=== PATIENT | female | born 1970 | race Hispanic/Latino ===

== ENCOUNTER 2018-07-08 11:37 | Observation (INO) | payer OTHER ==
[2018-07-08] MEDS ORDERED: NA CHLORIDE 0.9% 1,000 ML ONE (12:00)
[2018-07-08] MEDS ORDERED: ADENOSINE 6 MG/ 2ML VIAL IV ONE (12:00)
[2018-07-08 12:15] LABS: Absolute Lymphocytes (CBC) 4.2 K/uL (0.7-4.9); Absolute Monocytes 0.9 K/uL (0.1-1.3); Absolute Neutrophil 7.5 K/uL (1.8-8.0); Basophils % 0.5 % (0-1.3); Eosinophils % 6.3 % (0-4.4); Hematocrit 43.9 % (36.0-45.0); Lymphocytes % 31.2 % (15.3-44.8); MCH 30.1 pg (27.0-35.0); MCV 87.3 fL (80-100); MPV 9.1 fL (7.6-11.3); Monocytes % 6.3 % (3.3-12.3); RBC Red Blood Cell Count 5.02 M/uL (3.86-4.86)
[2018-07-08 12:36] LABS: ALT/SGPT 30 U/L (12-78); AST/SGOT 15 U/L (15-37); Albumin 3.8 g/dL (3.4-5.0); Alkaline Phosphatase 68 U/L (45-117); BUN Blood Urea Nitrogen 17 mg/dL (7-18); Bicarbonate 21 mmol/L (21-32); Bilirubin Direct 0.1 mg/dL (0-0.2); Bilirubin Total 0.5 mg/dL (0.2-1.0); Glucose Level 184 mg/dL (74-106); Magnesium 1.9 mg/dL (1.8-2.4); NT PRO-BNP 86 pg/mL (<125); Potassium 3.6 mmol/L (3.5-5.1); Protein, Total 7.3 g/dL (6.4-8.2); Sodium Level 137 mmol/L (136-145); Troponin (Emerg Dept Use Only) < 0.02 ng/mL (0.0-0.045)
[2018-07-08 12:37] LABS: Protime INR 0.99
--- NOTE | 2018-07-08 12:52 | RAD REPORT ---
EXAM DESCRIPTION: RAD - Chest Single View - 07/08/2018 12:36 pm CLINICAL HISTORY: Palpitations, tachycardia COMPARISON: December 12 TECHNIQUE: AP portable chest image was obtained 1225 hours . FINDINGS: No peripheral mass or consolidation. Heart size is normal. Central vasculature is not subs tantially different from the prior study. Portable technique and a slightly shallow inspiration accen tuates the vasculature and lung markings. Trachea is midline. No measurable pleural effusion and no p neumothorax. No acute bony abnormality seen. No acute aortic findings suspected. IMPRESSION: No acute cardiopulmonary process.
[2018-07-08 14:07] LABS: Barbiturates NEGATIVE (NEGATIVE); Benzodiazepines NEGATIVE (NEGATIVE); Cocaine NEGATIVE (NEGATIVE); METHAMPHETAM NEGATIVE (NEGATIVE); Methadone NEGATIVE (NEGATIVE); Opiates NEGATIVE (NEGATIVE); Phencyclidine NEGATIVE (NEGATIVE); THC Cannibis NEGATIVE (NEGATIVE)
[2018-07-08 14:30] LABS: Urine Amorphous Sediment 1+ /HPF (NONE SEEN); Urine Bacteria <20 /HPF (<20); Urine Culture Reflex Order NOT NEEDED; Urine RBC <5 /HPF (NONE SEEN)
--- NOTE | 2018-07-08 15:25 | EKG ---
Test Date: 2018-07-08 Test Time: 11:49:59 Java Swing Developer: RIGO MEASUREMENT RESULTS: Intervals: Rate: 198 [place]: QRSD: 70 QT: 216 QTc: 392 [place]: P: [place]: QRS: 18 T: 46 INTERPRETIVE STATEMENTS: Supraventricular tachycardia Nonspecific ST abnormality Abnormal ECG No previous ECG available for comparison Electronically Signed On 07-08-18 15:24:31 DIVISIONAL MERCHANDISING MANAGER by Noman Mcconnell
--- NOTE | 2018-07-08 15:25 | EKG ---
Test Date: 2018-07-08 Test Time: 11:54:58 Transit Mix Operator: RIGO MEASUREMENT RESULTS: Intervals: Rate: 128 [place]: 122 QRSD: 76 QT: 302 QTc: 440 [place]: P: 43 MI: 122 QRS: 30 T: 18 INTERPRETIVE STATEMENTS: Sinus tachycardia Nonspecific ST abnormality Abnormal ECG Compared to ECG 07/08/2018 11:49:59 Supraventricular tachycardia no longer present ST (T wave) deviation still present Electronically Signed On 07-08-18 15:24:28 MINE PRODUCTION ENGINEER by Noman Mcconnell
--- NOTE | 2018-07-08 15:25 | EKG ---
Test Date: 2018-07-08 Test Time: 11:55:36 Entertainment Usher: RIGO MEASUREMENT RESULTS: Intervals: Rate: 98 TN: 118 QRSD: 78 QT: 318 QTc: 405 [place]: P: 42 TN: 118 QRS: 15 T: 33 INTERPRETIVE STATEMENTS: Normal sinus rhythm Nonspecific ST abnormality Abnormal ECG Compared to ECG 07/08/2018 11:54:58 Sinus tachycardia no longer present ST (T wave) deviation still present Electronically Signed On 07-08-18 15:24:26 PATIENT TRANSPORT OFFICER by Noman Mcconnell
--- NOTE | 2018-07-08 16:27 | ER ---
Nurse's Notes [facility] Name: Amarilys Posey Age: 48 yrs Sex: Female : 1970 Arrival Date: 07/08/2018 Time: 11:40 Bed 15 Private MD: Michaela Guajardo Diagnosis: Supraventricular tachycardia;Abnormal electrocardiogram [ECG] [EKG] Presentation: 07/08 11:59 Presenting complaint: Patient states: " I was at work and it felt like my heart was ph fluttering, they checked my pulse and it was like 200." Pt denies chest pain, reports slight SOB and palpitations. Transition of care: patient was not received from another setting of care. Onset of symptoms was July 08, 2018. Risk Assessment: Do you want to hurt yourself or someone else? Patient reports no desire to harm self or others. Initial Sepsis Screen: Does the patient meet any 2 criteria? No. Patient's initial sepsis screen is negative. Does the patient have a suspected source of infection? No. Patient's initial sepsis screen is negative. Care prior to arrival: None. 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 - Social history:: Smoking status: Patient/guardian denies using tobacco. - Ebola Screening: : No symptoms or risks identified at this time. Screenin:20 Abuse screen: Denies threats or abuse. Denies injuries from another. Nutritional ph screening: No deficits noted. Tuberculosis screening: No symptoms or risk factors identified. Fall Risk None identified. Assessment: 11:50 Reassessment: HR noted to be 203 SVT on monitor, EKG and ERP at bedside, attempted ph vagal maneuvers x 2 w/ no changed in cardiac rhythm, verbal order received for IV medication. Cardiovascular: Reports palpitations, shortness of breath, Denies chest pain, nausea, Rhythm is SVT. 11:55 Reassessment: IV adenosine administered, rhythm converted to sinus tachycardia at 103 ph bpm. 12:00 General: Appears in no apparent distress. comfortable, well groomed, Behavior is calm, ph cooperative, appropriate for age, Denies fever, feeling ill. Pain: Denies pain. Neuro: Level of Consciousness is awake, alert, obeys commands, Oriented to person, place, time, situation. Cardiovascular: Reports lightheadedness, palpitations, shortness of breath, Denies chest pain, nausea, syncope, Capillary refill < 3 seconds in bilateral fingers Patient's skin is warm and dry. Rhythm is sinus tachycardia. Respiratory: Airway is patent Respiratory effort is even, unlabored, Respiratory pattern is regular, symmetrical. GI: No signs and/or symptoms were reported involving the gastrointestinal system. Derm: Skin is intact, is healthy with good turgor, Skin is pink, warm \\T\\ dry. Musculoskeletal: Circulation, motion, and sensation intact. Range of motion: intact in all extremities. 13:18 Reassessment: Patient appears in no apparent distress at this time. Patient and/or ph family updated on plan of care and expected duration. Pain level reassessed. Patient is alert, oriented x 3, equal unlabored respirations, skin warm/dry/pink. Pt resting comfortably, denies pain or nausea at this time, VSS w/ HR 95 bpm, sinus rhythm on bedside monitor. 14:00 Reassessment: Patient appears in no apparent distress at this time. No changes from previously documented assessment. Patient and/or family updated on plan of care and expected duration. Pain level reassessed. Patient is alert, oriented x 3, equal unlabored respirations, skin warm/dry/pink. Patient denies pain at this time. 14:54 Reassessment: Patient appears in no apparent distress at this time. Patient and/or ph family updated on plan of care and expected duration. Pain level reassessed. Patient is alert, oriented x 3, equal unlabored respirations, skin warm/dry/pink. Awaiting results of repeat troponin, VSS, will continue to monitor. 16:00 Reassessment: Patient appears in no apparent distress at this time. Patient and/or ph family updated on plan of care and expected duration. Pain level reassessed. Patient is alert, oriented x 3, equal unlabored respirations, skin warm/dry/pink. 17:24 Reassessment: Patient appears in no apparent distress at this time. Patient and/or ph family updated on plan of care and expected duration. Pain level reassessed. Patient is alert, oriented x 3, equal unlabored respirations, skin warm/dry/pink. Pt resting quietly, denies pain at this at this time, Dr Ladd at bedside to speak w/ pt. Vital Signs: 11:55 BP 129 / 72; Pulse 203; Resp 22; Temp 99.0; Pulse Ox 98% on R/A; Weight 81.65 kg; ph Height 5 ft. 5 in. (165.10 cm); Pain 0/10; 11:55 Pulse 103; Resp 18; Pulse Ox 100% ; ph 13:19 BP 118 / 68; Pulse 94; Resp 18; Pulse Ox 99% on R/A; Pain 0/10; ph 14:54 BP 114 / 58; Pulse 89; Resp 16; Pulse Ox 99% on R/A; Pain 0/10; ph 16:00 BP 108 / 64; Pulse 87; Resp 18; Pulse Ox 98% on R/A; ph 17:27 BP 121 / 80; Pulse 82; Resp 18; Pulse Ox 100% on R/A; ph 18:04 BP 112 / 62; Pulse 88 MON; Resp 19; Pulse Ox 98% on R/A; rv 11:55 Body Mass Index 29.95 (81.65 kg, 165.10 cm) ph 11:55 after IV cardioversion ph Vitals: 13:19 Cardiac Rhythm Assessment Sinus rhythm. ph 14:54 Cardiac Rhythm Assessment Sinus rhythm. ph ED Course: 11:40 Patient arrived in ED. sb2 11:41 Michaela Guajardo MD is Private Physician. sb2 11:43 Shahriar Tejeda MD is Attending Physician. gs 11:53 Initial lab(s) drawn, by pa, sent to lab. Inserted saline lock: 20 gauge in right ph antecubital area, using aseptic technique. Blood collected. 11:59 Sera Perla RN is Primary Nurse. ph 12:01 Triage completed. ph 12:28 X-ray completed. Portable x-ray completed in exam room. Patient tolerated procedure ls3 well. 13:20 Arm band placed on. ph 13:20 Patient has correct armband on for positive identification. Placed in gown. Bed in low ph position. Call light in reach. Side rails up X2. conveyor monitor on. Pulse ox on. NIBP on. Warm blanket given. 13:37 XRAY Chest (1 view) In Process Unspecified. EDMS 13:52 Urine Drug Screen Sent. tw2 14:46 No provider procedures requiring assistance completed. ph 16:27 Michelle Ladd MD is Hospitalizing Provider. 17:28 Patient admitted, IV remains in place. ph Administered Medications: 11:55 Drug: Adenocard 6 mg Route: IVP; Site: right antecubital; ph 12:05 Follow up: Response: No adverse reaction; Cardiac rhythm changed ph 16:51 Drug: Aspirin Chewable Tablet 324 mg Route: PO; ph 17:23 Follow up: Response: No adverse reaction ph Outcome: 16:26 Discharge ordered by . 16:27 Decision to Hospitalize by Provider. 18:05 Admitted to Tele accompanied by tech, via wheelchair, room , with chart, Report called rv to NURSE MONTIEL 18:05 Condition: good 18:05 Instructed on the need for admit. 18:37 Patient left the ED. rv Signatures: Dispatcher [employer] EDMS Sera Perla, RN RN Jana Angulo RN RN tw2 Shahriar Tejeda MD MD Jimena Canales sb2 Archie Lewis RN RN rv Armaan Durand ls3
--- NOTE | 2018-07-08 16:27 | EDPHYS ---
Physician Documentation [facility] Name: Amarilys Posey Age: 48 yrs Sex: Female : 1970 Arrival Date: 07/08/2018 Time: 11:40 Bed 15 Private MD: Michaela Guajardo ED Physician Shahriar Tejeda HPI: 07/08 16:14 This 48 yrs old Female presents to ER via Ambulatory with complaints of RAPID gs HEART RATE. 16:14 The patient presents with a history of heart racing. Onset: The symptoms/episode gs began/occurred suddenly. Duration: The patient or guardian reports a single episode, that is still ongoing. Modifying factors: The symptoms are aggravated by nothing. The symptoms are alleviated by nothing. Associated signs and symptoms: Pertinent positives: SOB. Severity of symptoms: At their worst the symptoms were severe in the emergency department the symptoms are unchanged. The patient has not experienced similar symptoms in the past. The patient has not recently seen a physician. 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 - Social history:: Smoking status: Patient/guardian denies using tobacco. - Ebola Screening: : No symptoms or risks identified at this time. ROS: 16:14 All other systems are negative. gs Exam: 16:14 Head/Face: Normocephalic, atraumatic. Eyes: Pupils equal round and reactive to light, gs extra-ocular motions intact. Lids and lashes normal. Conjunctiva and sclera are non-icteric and not injected. Cornea within normal limits. Periorbital areas with no swelling, redness, or edema. ENT: Nares patent. No nasal discharge, no septal abnormalities noted. Tympanic membranes are normal and external auditory canals are clear. Oropharynx with no redness, swelling, or masses, exudates, or evidence of obstruction, uvula midline. Mucous membranes moist. Neck: Trachea midline, no thyromegaly or masses palpated, and no cervical lymphadenopathy. Supple, full range of motion without nuchal rigidity, or vertebral point tenderness. No Meningismus. Chest/axilla: Normal chest wall appearance and motion. Nontender with no deformity. No lesions are appreciated. 16:14 Respiratory: Lungs have equal breath sounds bilaterally, clear to auscultation and percussion. No rales, rhonchi or wheezes noted. No increased work of breathing, no retractions or nasal flaring. Abdomen/GI: Soft, non-tender, with normal bowel sounds. No distension or tympany. No guarding or rebound. No evidence of tenderness throughout. Back: No spinal tenderness. No costovertebral tenderness. Full range of motion. Skin: Warm, dry with normal turgor. Normal color with no rashes, no lesions, and no evidence of cellulitis. MS/ Extremity: Pulses equal, no cyanosis. Neurovascular intact. Full, normal range of motion. Neuro: Awake and alert, GCS 15, oriented to person, place, time, and situation. Cranial nerves II-XII grossly intact. Motor strength 5/5 in all extremities. Sensory grossly intact. Cerebellar exam normal. Normal gait. 16:14 Constitutional: The patient appears alert, awake, in obvious distress, severely distressed. 16:14 Cardiovascular: Rate: tachycardic, Rhythm: regular, Pulses: thready, Heart sounds: normal, Edema: is not appreciated. 16:14 ECG was reviewed by the Attending Physician. 16:14 ECG was reviewed by the Attending Physician. Vital Signs: 11:55 BP 129 / 72; Pulse 203; Resp 22; Temp 99.0; Pulse Ox 98% on R/A; Weight 81.65 kg; ph Height 5 ft. 5 in. (165.10 cm); Pain 0/10; 11:55 Pulse 103; Resp 18; Pulse Ox 100% ; ph 13:19 BP 118 / 68; Pulse 94; Resp 18; Pulse Ox 99% on R/A; Pain 0/10; ph 14:54 BP 114 / 58; Pulse 89; Resp 16; Pulse Ox 99% on R/A; Pain 0/10; ph 16:00 BP 108 / 64; Pulse 87; Resp 18; Pulse Ox 98% on R/A; ph 17:27 BP 121 / 80; Pulse 82; Resp 18; Pulse Ox 100% on R/A; ph 18:04 BP 112 / 62; Pulse 88 MON; Resp 19; Pulse Ox 98% on R/A; rv 11:55 Body Mass Index 29.95 (81.65 kg, 165.10 cm) ph 11:55 after IV cardioversion ph MDM: 11:55 Patient medically screened. 16:14 Differential diagnosis: arrythmia, dehydration, stress disorder, unstable angina. Data gs reviewed: vital signs, nurses notes. Response to treatment: the patient's symptoms have markedly improved after treatment, and as a result, I will admit patient. 16:14 Counseling: I had a detailed discussion with the patient and/or guardian regarding: the gs historical points, exam findings, and any diagnostic results supporting the discharge/admit diagnosis, lab results, radiology results, the need for further work-up and treatment in the hospital. 07/08 11:56 Order name: Basic Metabolic Panel; Complete Time: 14:43 07/08 11:56 Order name: CBC with Diff; Complete Time: 14:43 07/08 11:56 Order name: LFT's; Complete Time: 14:43 07/08 11:56 Order name: Magnesium; Complete Time: 14:43 07/08 11:56 Order name: NT PRO-BNP; Complete Time: 14:43 07/08 11:56 Order name: PT-INR; Complete Time: 14:43 07/08 11:56 Order name: Troponin (emerg Dept Use Only); Complete Time: 14:43 07/08 11:56 Order name: TSH; Complete Time: 14:43 07/08 11:56 Order name: Urine Drug Screen; Complete Time: 14:43 07/08 11:56 Order name: Urine Microscopic Only; Complete Time: 14:43 07/08 14:45 Order name: Troponin (emerg Dept Use Only); Complete Time: 16:10 07/08 14:50 Order name: Urine Dipstick--Ancillary (enter results) eb 07/08 14:50 Order name: Urine --Ancillary (enter results) eb 07/08 17:15 Order name: CBC with Automated Diff EDMS 07/08 11:56 Order name: XRAY Chest (1 view); Complete Time: 14:43 07/08 11:56 Order name: EKG; Complete Time: 11:58 07/08 11:56 Order name: Cardiac monitoring; Complete Time: 13:00 07/08 11:56 Order name: EKG - Nurse/Tech; Complete Time: 13:01 07/08 13:40 Order name: EKG Electrocardiogram; Complete Time: 16:14 EDMS 07/08 13:40 Order name: EKG Electrocardiogram; Complete Time: 16:14 EDMS 07/08 17:15 Order name: Heart Healthy EDMS 07/08 17:15 Order name: CBC with Automated Diff EDMS 07/08 17:15 Order name: CBC with Automated Diff EDMS 07/08 17:15 Order name: CBC with Automated Diff EDMS 07/08 17:15 Order name: Comprehensive Metabolic Panel EDMS 07/08 17:15 Order name: Comprehensive Metabolic Panel EDMS 07/08 17:15 Order name: Comprehensive Metabolic Panel EDMS 07/08 17:15 Order name: Comprehensive Metabolic Panel [facility] 07/08 11:56 Order name: IV Saline Lock; Complete Time: 13:01 07/08 11:56 Order name: Labs collected and sent; Complete Time: 13:01 07/08 11:56 Order name: O2 Per Protocol; Complete Time: 13:01 07/08 11:56 Order name: O2 Sat Monitoring; Complete Time: 13:01 07/08 11:56 Order name: Urine Test (obtain specimen); Complete Time: 13:51 07/08 11:56 Order name: Urine Dipstick-Ancillary (obtain specimen); Complete Time: 13:51 gs EC:14 Rate is 198 beats/min. Rhythm is regular. QRS interval is normal. No Q waves. Clinical gs impression: SVT. Interpreted by me. 16:14 Rate is 98 beats/min. Rhythm is regular. NC interval is normal. QRS interval is normal. gs QT interval is normal. Clinical impression: NSR w/ Non-specific ST/T Changes. Interpreted by me. Administered Medications: 11:55 Drug: Adenocard 6 mg Route: IVP; Site: right antecubital; ph 12:05 Follow up: Response: No adverse reaction; Cardiac rhythm changed ph 16:51 Drug: Aspirin Chewable Tablet 324 mg Route: PO; ph 17:23 Follow up: Response: No adverse reaction ph Disposition: 07/08/18 16:27 Hospitalization ordered by Michelle Ladd for Observation. Preliminary diagnosis are Supraventricular tachycardia, Abnormal electrocardiogram [ECG] [EKG]. - Bed requested for Telemetry/MedSurg (observation). - Status is Observation. rv - Condition is Stable. - Problem is new. - Symptoms have improved. UTI on Admission? No Critical care time excluding procedures: 16:27 Critical care time: Bedside Care: 10 minutes, Consultation: 10 minutes, Family gs Intervention: 10 minutes. Total time: 30 minutes Signatures: Dispatcher [employer] Iman Franco RN RN dw Hall, Patricia, RN RN Shahriar Tejeda MD MD gs Botello, Elizabeth eb Vicente, Ronaldo, RN RN rv Corrections: (The following items were deleted from the chart) 16:27 16:26 07/08/2018 16:26 Discharged to Home. Impression: Supraventricular tachycardia; gs Abnormal electrocardiogram [ECG] [EKG]. Condition is Stable. Forms are Medication Reconciliation Form, Thank You Letter, Antibiotic Education, Prescription Opioid Use. Follow up: Private Physician; When: 2 - 3 days; Reason: Re-evaluation by your physician. 16:52 16:27 Hospitalization Ordered by Michelle Ladd MD for Observation. Preliminary diagnosis eb is Supraventricular tachycardia; Abnormal electrocardiogram [ECG] [EKG]. Bed requested for Telemetry/MedSurg (observation). Status is Observation. Condition is Stable. Problem is new. Symptoms have improved. UTI on Admission? No. gs 17:38 16:52 07/08/2018 16:27 Hospitalization Ordered by Michelle Ladd MD for Observation. dw Preliminary diagnosis is Supraventricular tachycardia; Abnormal electrocardiogram [ECG] [EKG]. Bed requested for Telemetry/MedSurg (observation). Status is Observation. Condition is Stable. Problem is new. Symptoms have improved. UTI on Admission? No. eb 18:37 17:38 07/08/2018 16:27 Hospitalization Ordered by Michelle Ladd MD for Observation. rv Preliminary diagnosis is Supraventricular tachycardia; Abnormal electrocardiogram [ECG] [EKG]. Bed requested for Telemetry/MedSurg (observation). Status is Observation. Condition is Stable. Problem is new. Symptoms have improved. UTI on Admission? No. dw
[2018-07-08 16:45] LABS: Urine Blood TRACE (NEG); Urine Glucose TRACE (NEG); Urine Protein NEGATIVE (NEG)
[2018-07-08] MEDS ORDERED: ASPIRIN 81 MG CHEWABLE TABLET ONE (16:58)
[2018-07-08] MEDS ORDERED: ACETAMINOPHEN 500 MG TAB PO PRN (17:07)
[2018-07-08] MEDS ORDERED: ONDANSETRON 4 MG/2 ML VIAL IV PRN (17:07)
--- NOTE | 2018-07-08 18:31 | P.HP ---
Certification for Inpatient Patient admitted to: Observation With expected LOS: <2 Midnights Practitioner: I am a practitioner with admitting privileges, knowledge of patient current condition, hospital course, and medical plan of care. Services: Services provided to patient in accordance with Admission requirements found in Title 42 Section 412.3 of the Code of Federal Regulations Patient History Date of Service: 07/08/18 Reason for admission: Palpitations History of Present Illness: This is a 48-year-old female with history of diabetes admitted for palpitations. Per patient, the palpitations started around 11 o'clock this morning associated with shortness of breath and sweating. She came to the ER. In the ED, she was found to have supraventricular tachycardia at vasovagal maneuvers were attempted. Then she was given 6 mg at dizziness and 4 baby aspirin. After the adenosine, she converted to normal sinus rhythm. She denies any chest pain, headache, vision changes, dizziness, presyncopal/ syncopal episodes, abdominal complaints or complaints. At the time of my exam, she was alert oriented x3, hemodynamically stable, normal sinus rhythm and asymptomatic. She is being admitted for observation because her 2nd troponin was elevated in the ER. Allergies NKDA Allergy (Uncoded 09/10/15 13:05) Unknown Home Medications: ALPRAZolam [Xanax] 0.5 mg PO TID PRN 10/16/16 Cholecalciferol (Vitamin D3) [Vitamin D 5,000 Iu Cap] 5,000 unit PO DAILY Empagliflozin [Jardiance] 25 mg PO DAILY 10/16/16 Metformin HCl [Glucophage] 500 mg PO BIDWM 10/16/16 Venlafaxine HCl [Effexor] 75 mg PO DAILY 10/16/16 - Past Medical/Surgical History -: Diabetes mellitus, [id number] Review of Systems General: As per HPI, Unremarkable Eyes: Unremarkable ENT: Unremarkable Respiratory: Shortness of Breath, As per HPI Cardiovascular: Palpitations, As per HPI Gastrointestinal: Unremarkable Genitourinary: Unremarkable Musculoskeletal: Unremarkable Integumentary: Unremarkable Neurological: Unremarkable Lymphatics: Unremarkable Physical Examination - Physical Exam General: Alert, In no apparent distress, Oriented x3 HEENT: Atraumatic, PERRLA, Mucous membr. moist/pink, EOMI, Sclerae nonicteric Neck: Supple, 2+ carotid pulse no bruit, No LAD, Without JVD or thyroid abnormality Respiratory: Clear to auscultation bilaterally, Normal air movement Cardiovascular: Regular rate/rhythm, Normal S1 S2 Gastrointestinal: Normal bowel sounds, No tenderness Musculoskeletal: No tenderness Integumentary: No rashes Neurological: Normal gait, Normal speech, Normal strength at 5/5 x4 extr, Normal tone, Normal affect Lymphatics: No axilla or inguinal lymphadenopathy - Studies Laboratory Data (last 24 hrs) 07/08/18 11:55: PT 11.8, INR 0.99 07/08/18 11:55: WBC 13.5 H, Hgb 15.1 H, Hct 43.9, Plt Count 280 07/08/18 11:55: Sodium 137, Potassium 3.6, BUN 17, Creatinine 0.70, Glucose 184 H, Magnesium 1.9, Total Bilirubin 0.5, AST 15, ALT 30, Alkaline Phosphatase 68 Assessment and Plan - Plan This is a 48-year-old female with: Episode of supraventricular tachycardia Convert back to normal sinus rhythm in the ER after 6 mg of adenosine. Continues to remain normal sinus rhythm. Admit to floor with tele to monitor. If continues to have more episodes of SVT, may need cardiology consult. Shortness of breath. Resolved. This is likely secondary to the elevated heart rate from the SVT. Elevated troponin This is likely secondary to the elevated heart rate and increased demand, likely temporary. Will recheck troponin in 8 hrs from prior to see if remained stable. This is likely not secondary to coronary artery disease. [id number] diabetes mellitus, type 2 Accu-Cheks and mild sliding scale insulin. She is on Jardiance 25 mg at home, will hold for now and resume on discharge. DVT prophylaxis: Lovenox GI prophylaxis: Not needed Diet: 1800 calorie Disposition: Admit to floor with tele for observation overnight. Likely discharge home in the next 24-48 hr if asymptomatic, and no more episodes of SVTs. - Advance Directives Does patient have a Living Will: No Does patient have a Durable POA for Healthcare: No Physician Review: Patient Assessed, Agree with Above Assessment and Plan Time Spent Managing Pts Care (In Minutes): 45
[2018-07-08] MEDS ORDERED: POTASSIUM CL SA 10 MEQ TAB PO ONE (18:42)
[2018-07-08] MEDS: NA CHLORIDE 0.9% 1,000 ML IV SCH (20:56)
[2018-07-09] MEDS: NA CHLORIDE 0.9% 1,000 ML IV SCH (05:03)
[2018-07-09 05:40] LABS: Absolute Lymphocytes (CBC) 3.7 K/uL (0.7-4.9); Absolute Monocytes 0.6 K/uL (0.1-1.3); Absolute Neutrophil 5.1 K/uL (1.8-8.0); Basophils % 0.2 % (0-1.3); Hematocrit 39.6 % (36.0-45.0); Lymphocytes % 36.7 % (15.3-44.8); MCH 30.2 pg (27.0-35.0); MCV 87.1 fL (80-100); MPV 8.6 fL (7.6-11.3); Monocytes % 6.1 % (3.3-12.3); RBC Red Blood Cell Count 4.54 M/uL (3.86-4.86)
[2018-07-09 05:54] LABS: ALT/SGPT 26 U/L (12-78); AST/SGOT 13 U/L (15-37); Albumin 3.2 g/dL (3.4-5.0); Alkaline Phosphatase 57 U/L (45-117); BUN Blood Urea Nitrogen 11 mg/dL (7-18); Bicarbonate 25 mmol/L (21-32); Bilirubin Total 0.6 mg/dL (0.2-1.0); Glucose Level 123 mg/dL (74-106); Magnesium 1.8 mg/dL (1.8-2.4); Potassium 3.8 mmol/L (3.5-5.1); Protein, Total 6.1 g/dL (6.4-8.2); Sodium Level 140 mmol/L (136-145)
[2018-07-09] MEDS ORDERED: D50W 25 GM/50 ML SYRINGE IV PRN (06:03)
[2018-07-09] MEDS ORDERED: GLUCAGON 1 MG/VIAL IM PRN (06:03)
[2018-07-09] MEDS ORDERED: MAGNESIUM SULFATE 1 gm IVPB 1 GM/100 ML BAG IV ONE (06:13)
[2018-07-09] MEDS ORDERED: POTASSIUM CL SA 10 MEQ TAB PO ONE (06:14)
[2018-07-09] MEDS: INSULIN -REGULAR HUMAN 50 UNIT/0.5 ML ML SQ SCH ×2 (07:30→11:30)
[2018-07-09] MEDS ORDERED: LISINOPRIL 5 MG TAB PO SCH (09:00)
[2018-07-09] MEDS ORDERED: Empagliflozin (Jardiance) 25 MG TABLET PO SCH (09:00)
--- NOTE | 2018-07-09 15:59 | P.DS ---
Admission Date: 07/08/18 Discharge Date: 07/09/18 Disposition: ROUTINE DISCHARGE Discharge Condition: GOOD Reason for Admission: Palpitations Brief History of Present Illness: From H and P This is a 48-year-old female with history of diabetes admitted for palpitations. Per patient, the palpitations started around 11 o'clock this morning associated with shortness of breath and sweating. She came to the ER. In the ED, she was found to have supraventricular tachycardia at vasovagal maneuvers were attempted. Then she was given 6 mg at dizziness and 4 baby aspirin. After the adenosine, she converted to normal sinus rhythm. She denies any chest pain, headache, vision changes, dizziness, presyncopal/ syncopal episodes, abdominal complaints or complaints. At the time of my exam, she was alert oriented x3, hemodynamically stable, normal sinus rhythm and asymptomatic. She is being admitted for observation because her 2nd troponin was elevated in the ER. Hospital Course: Patient is a 48-year-old female with past medical history of diabetes who was admitted secondary to palpitations and elevated troponin level. Patient was found to have SVT was given adenosine in the ER and converted to sinus rhythm. Patient was observed overnight did not have any further id Ms. on telemetry. Patient did not have any chest pain shortness of breath. Patient was started on low-dose beta-agnes. Patient was then cleared for discharge. Spoke with web marketing manager seasonal delivery driver who recommended outpatient follow up in his office in 1 week. Vital Signs/Physical Exam: Temp Pulse Resp BP Pulse Ox 98.0 F 79 18 110/52 L 98 07/09/18 08:00 07/09/18 10:29 07/09/18 08:00 07/09/18 10:29 07/09/18 08:00 General: Alert, In no apparent distress, Oriented x3, Obese HEENT: Atraumatic, PERRLA, EOMI Neck: Supple, JVD not distended Respiratory: Clear to auscultation bilaterally, Normal air movement Cardiovascular: No edema, Normal pulses, Regular rate/rhythm, Normal S1 S2 Gastrointestinal: Normal bowel sounds, Soft and benign, Non-distended, No tenderness Musculoskeletal: No clubbing, No tenderness Integumentary: No rashes, No erythema Neurological: Normal speech, Normal strength at 5/5 x4 extr, Normal tone, Cranial nerves 3-12 intact, Normal affect Laboratory Data at Discharge: WBC 10.1 K/uL (4.3-10.9) D 07/09/18 05:12 Hgb 13.7 g/dL (12.0-15.0) 07/09/18 05:12 Hct 39.6 % (36.0-45.0) 07/09/18 05:12 Plt Count 241 K/uL (152-406) 07/09/18 05:12 PT 11.8 SECONDS (9.2-12.8) 07/08/18 11:55 INR 0.99 07/08/18 11:55 Sodium 140 mmol/L (136-145) 07/09/18 05:12 Potassium 3.8 mmol/L (3.5-5.1) 07/09/18 05:12 BUN 11 mg/dL (7-18) 07/09/18 05:12 Creatinine 0.60 mg/dL (0.55-1.3) 07/09/18 05:12 Glucose 123 mg/dL (74-106) H 07/09/18 05:12 Magnesium 1.8 mg/dL (1.8-2.4) 07/09/18 05:12 Total Bilirubin 0.6 mg/dL (0.2-1.0) 07/09/18 05:12 AST 13 U/L (15-37) L 07/09/18 05:12 ALT 26 U/L (12-78) 07/09/18 05:12 Alkaline Phosphatase 57 U/L (45-117) 07/09/18 05:12 Troponin I 0.12 ng/mL (0.0-0.045) H 07/08/18 20:40 Home Medications: Empagliflozin [Jardiance] 25 mg PO DAILY 10/16/16 Lisinopril 5 mg PO DAILY 07/08/18 Metoprolol Tartrate [Lopressor*] 12.5 mg PO BID 6AM 6PM #30 tab 07/09/18 New Medications: Metoprolol Tartrate [Lopressor*] 12.5 mg PO BID 6AM 6PM #30 tab Patient Discharge Instructions: f/up w PCP in 2-3 days. f/up w web marketing manager Dr. Lawrence on 07/15/18 at 8 am. Return to ER for worsening condition Diet: ADA Activity: Ad margarita Followup: Sukhdev Lawrence MD [ACTIVE - CAN ADMIT] - Michaela Guajardo DO [Primary Care Provider] -
--- NOTE | 2018-07-09 17:49 | EKG ---
Test Date: 2018-07-08 Test Time: 14:21:31 Development Mechanic: RIGO MEASUREMENT RESULTS: Intervals: Rate: 81 CA: 148 QRSD: 76 QT: 344 QTc: 399 [place]: P: 50 CA: 148 QRS: 13 T: 27 INTERPRETIVE STATEMENTS: Normal sinus rhythm Normal ECG Compared to ECG 07/08/2018 11:55:36 ST (T wave) deviation no longer present Electronically Signed On 07-09-18 17:47:44 AIRPLANE GASTANK LINER ASSEMBLER by Noman Mcconnell
[2018-07-09] MEDS ORDERED: METOPROLOL TAR 25 MG TAB PO SCH (18:00)
== END 2018-07-09 16:36 | disposition home or self-care (01) ==
LOC: ER 11:37 → ERHOLD 17:11 → 4TH 18:05
PROVIDERS: ADMIT Family Medicine; ATTEND Family Medicine
DX: R00.2 Palpitations (principal); I47.1 Supraventricular tachycardia; E11.9 Type 2 diabetes mellitus without complications; R79.89 Other specified abnormal findings of blood chemistry
CPT/HCPCS: 36415; 71045; 80048; 80053; 80076; 80307; 81003; 81015; 81025; 82962; 83735; 83880; 84443; 84484; 85025; 85610; 93005; 94760; 96374; 99285; G0378; J0153; J3475; J7030

== ENCOUNTER 2018-12-17 05:41 | Emergency (ER) | payer OTHER ==
[2018-12-17 06:27] LABS: Absolute Lymphocytes (CBC) 2.9 K/uL (0.7-4.9); Absolute Monocytes 0.6 K/uL (0.1-1.3); Basophils % 0.4 % (0-1.3); Eosinophils % 2.9 % (0-4.4); Hematocrit 42.2 % (36.0-45.0); Lymphocytes % 26.3 % (15.3-44.8); MPV 8.8 fL (7.6-11.3); Monocytes % 5.9 % (3.3-12.3)
[2018-12-17 06:41] LABS: ALT/SGPT 27 U/L (12-78); AST/SGOT 16 U/L (15-37); Albumin 3.5 g/dL (3.4-5.0); Alkaline Phosphatase 68 U/L (45-117); BUN Blood Urea Nitrogen 9 mg/dL (7-18); Bicarbonate 24 mmol/L (21-32); Bilirubin Direct 0.1 mg/dL (0-0.2); Bilirubin Total 0.5 mg/dL (0.2-1.0); Glucose Level 135 mg/dL (74-106); Lipase 78 U/L (73-393); Potassium 3.6 mmol/L (3.5-5.1); Protein, Total 6.9 g/dL (6.4-8.2); Sodium Level 140 mmol/L (136-145)
--- NOTE | 2018-12-17 07:17 | ER ---
Nurse's Notes [facility] Name: Amarilys Posey Age: 48 yrs Sex: Female : 1970 Arrival Date: 12/17/2018 Time: 05:43 Bed 7 Private MD: Michaela Guajardo Diagnosis: Upper abdominal pain, unspecified Presentation: 12/17 05:57 Presenting complaint: Patient states: Reports epigastric pain that started Sunday, pt ea reports pain wraps around the right side and goes to the back. Pt reports feeling bloated. Denies n/v/d. Transition of care: patient was not received from another setting of care. Onset of symptoms was December 17, 2018. Risk Assessment: Do you want to hurt yourself or someone else? Patient reports no desire to harm self or others. Initial Sepsis Screen: Does the patient meet any 2 criteria? No. Patient's initial sepsis screen is negative. Does the patient have a suspected source of infection? No. Patient's initial sepsis screen is negative. Care prior to arrival: None. 05:57 Method Of Arrival: Ambulatory ea 05:57 Acuity: JAVIER 3 ea MATERIAL FLOW ENGINEER: 06:00 LMP 12/05/2018 ea Historical: - Allergies: 06:42 No Known Allergies; ea - Home Meds: 06:42 Jardiance Oral [Active]; ea - PMHx: 06:42 Diabetes - NIDDM; ea - PSHx: 06:42 Tubal ligation; ea - Immunization history:: Adult Immunizations up to date. - Social history:: Smoking status: Patient/guardian denies using tobacco. - Ebola Screening: : No symptoms or risks identified at this time. Screenin:00 Abuse screen: Denies threats or abuse. Nutritional screening: No deficits noted. ea Tuberculosis screening: No symptoms or risk factors identified. Fall Risk None identified. Assessment: 06:38 General: Appears uncomfortable, Behavior is calm, cooperative, appropriate for age. ea Pain: Complains of pain in epigastric area Pain radiates to right upper quadrant. Neuro: Level of Consciousness is awake, alert, obeys commands, Oriented to person, place, time, situation. Cardiovascular: Patient's skin is warm and dry. Respiratory: Airway is patent Respiratory effort is even, unlabored, Respiratory pattern is regular, symmetrical. GI: Abdomen is non-distended, Bowel sounds present X 4 quads. : Denies burning with urination. Derm: Skin is pink, warm \T\ dry. 06:50 Reassessment: Patient and/or family updated on plan of care and expected duration. Pain ea level reassessed. Patient is alert, oriented x 3, equal unlabored respirations, skin warm/dry/pink. Awaiting on lab results. 07:34 Reassessment: Patient appears in no apparent distress at this time. Patient and/or tw2 family updated on plan of care and expected duration. Pain level reassessed. Patient is alert, oriented x 3, equal unlabored respirations, skin warm/dry/pink. Patient states feeling better. Patient states symptoms have improved. Vital Signs: 05:57 BP 137 / 71; Pulse 82; Resp 19; Temp 97.8; Pulse Ox 98% on R/A; Weight 83.91 kg; Height ea 5 ft. 5 in. (165.10 cm); Pain 8/10; 07:10 BP 146 / 88; Pulse 69; Resp 18; Pulse Ox 99% on R/A; ea 07:34 BP 128 / 78; Pulse 74; Resp 17; Pulse Ox 99% on R/A; Pain 6/10; tw2 05:57 Body Mass Index 30.79 (83.91 kg, 165.10 cm) ea ED Course: 05:43 Patient arrived in ED. am2 05:44 Michaela Guajardo MD is Private Physician. am2 05:54 Joanne Land FNP-C [facility]. kb 05:54 Irvin Rosenberg MD is Attending Physician. kb 05:59 Charisse Mccarty RN is Primary Nurse. ea 06:00 Patient has correct armband on for positive identification. Placed in gown. Bed in low ea position. Call light in reach. Adult w/ patient. 06:01 Arm band placed on right wrist. Patient placed in an exam room, on a stretcher, on ea pulse oximetry. 06:10 Inserted saline lock: 20 gauge in right antecubital area, using aseptic technique. ea Blood collected. 06:41 Triage completed. ea 07:00 US Abdomen Limited In Process Unspecified. EDMS 07:15 Report given to Segundo GANDARA. ea 07:30 No provider procedures requiring assistance completed. tw2 07:34 IV discontinued, intact, bleeding controlled, No redness/swelling at site. Pressure tw2 dressing applied. Administered Medications: 07:20 Drug: Pepcid 20 mg Route: IVP; Site: right antecubital; tw2 07:35 Follow up: Response: No adverse reaction tw2 07:24 Drug: TORadol 30 mg Route: IVP; Site: right antecubital; tw2 07:35 Follow up: Response: No adverse reaction; Pain is decreased tw2 Outcome: 07:16 Discharge ordered by MD. ash 07:33 Discharged to home ambulatory. tw2 07:33 Condition: stable 07:33 Discharge instructions given to patient, significant other, Instructed on discharge instructions, follow up and referral plans. no drinking with medication, no driving heavy equipment, medication usage, Demonstrated understanding of instructions, follow-up care, medications, Prescriptions given X 1. 07:35 Patient left the ED. tw2 Signatures: Dispatcher [employer] EDMS Joanne Land, LATRICE GRAYSON-Jana Caldwell RN RN tw2 Brittanie Meneses 2 Charisse Mccarty RN RN
--- NOTE | 2018-12-17 07:17 | EDPHYS ---
Physician Documentation [facility] Name: Amarilys Posey Age: 48 yrs Sex: Female : 1970 Arrival Date: 12/17/2018 Time: 05:43 Bed 7 Private MD: Michaela Guajardo ED Physician Irvin Rosenberg HPI: 12/17 05:57 This 48 yrs old Female presents to ER via Unassigned with complaints of kb Epigastric Pain. 05:57 The patient presents with abdominal pain in the epigastric area, in the right upper kb quadrant. Onset: The symptoms/episode began/occurred 3 day(s) ago. The symptoms radiate to right back. Associated signs and symptoms: none. The symptoms are described as intermittent. Modifying factors: The symptoms are alleviated by nothing, the symptoms are aggravated by nothing. Severity of pain: At its worst the pain was moderate in the emergency department the pain is unchanged. The patient has not experienced similar symptoms in the past. The patient has not recently seen a physician. Pt reports epigastric pain that radiates around right side to back. States it started Sunday. No fever, n/v/d. 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 - Social history:: Smoking status: Patient/guardian denies using tobacco. - Ebola Screening: : No symptoms or risks identified at this time. ROS: 05:57 Constitutional: Negative for fever, chills, and weight loss, Cardiovascular: Negative kb for chest pain, palpitations, and edema, Respiratory: Negative for shortness of breath, cough, wheezing, and pleuritic chest pain, Back: Negative for injury and pain, : Negative for injury, bleeding, discharge, and swelling, MS/Extremity: Negative for injury and deformity, Skin: Negative for injury, rash, and discoloration, Neuro: Negative for headache, weakness, numbness, tingling, and seizure. 05:57 Abdomen/GI: Positive for abdominal pain, Negative for nausea, vomiting, and diarrhea. Exam: 05:57 Constitutional: This is a well developed, well nourished patient who is awake, alert, kb and in no acute distress. Head/Face: Normocephalic, atraumatic. Chest/axilla: Normal chest wall appearance and motion. Nontender with no deformity. No lesions are appreciated. Cardiovascular: Regular rate and rhythm with a normal S1 and S2. No gallops, murmurs, or rubs. Normal PMI, no JVD. No pulse deficits. Respiratory: Lungs have equal breath sounds bilaterally, clear to auscultation and percussion. No rales, rhonchi or wheezes noted. No increased work of breathing, no retractions or nasal flaring. Back: No spinal tenderness. No costovertebral tenderness. Full range of motion. Skin: Warm, dry with normal turgor. Normal color with no rashes, no lesions, and no evidence of cellulitis. MS/ Extremity: Pulses equal, no cyanosis. Neurovascular intact. Full, normal range of motion. Neuro: Awake and alert, GCS 15, oriented to person, place, time, and situation. Cranial nerves II-XII grossly intact. Motor strength 5/5 in all extremities. Sensory grossly intact. Cerebellar exam normal. Normal gait. 05:57 Abdomen/GI: Inspection: abdomen appears normal, Bowel sounds: normal, in all quadrants, Palpation: soft, in all quadrants, mild abdominal tenderness, in the right upper quadrant. Vital Signs: 05:57 BP 137 / 71; Pulse 82; Resp 19; Temp 97.8; Pulse Ox 98% on R/A; Weight 83.91 kg; Height ea 5 ft. 5 in. (165.10 cm); Pain 8/10; 07:10 BP 146 / 88; Pulse 69; Resp 18; Pulse Ox 99% on R/A; ea 07:34 BP 128 / 78; Pulse 74; Resp 17; Pulse Ox 99% on R/A; Pain 6/10; tw2 05:57 Body Mass Index 30.79 (83.91 kg, 165.10 cm) ea MDM: 05:54 Patient medically screened. kb 05:59 Data reviewed: vital signs, nurses notes. Data interpreted: Pulse oximetry: on room air kb is 100 %. Interpretation: normal. 07:15 Counseling: I had a detailed discussion with the patient and/or guardian regarding: the kb historical points, exam findings, and any diagnostic results supporting the discharge/admit diagnosis, lab results, radiology results, the need for outpatient follow up, a family practitioner, to return to the emergency department if symptoms worsen or persist or if there are any questions or concerns that arise at home. 12/17 05:57 Order name: Basic Metabolic Panel; Complete Time: 06:42 kb 12/17 05:57 Order name: CBC with Diff; Complete Time: 06:38 kb 12/17 05:57 Order name: Hepatic Function; Complete Time: 06:42 kb 12/17 05:57 Order name: Lipase; Complete Time: 06:42 kb 12/17 05:57 Order name: US Abdomen Limited kb 12/17 05:57 Order name: IV Saline Lock; Complete Time: 06:38 kb 12/17 05:57 Order name: Labs collected and sent; Complete Time: 06:38 kb Administered Medications: 07:20 Drug: Pepcid 20 mg Route: IVP; Site: right antecubital; tw2 07:35 Follow up: Response: No adverse reaction tw2 07:24 Drug: TORadol 30 mg Route: IVP; Site: right antecubital; tw2 07:35 Follow up: Response: No adverse reaction; Pain is decreased tw2 Disposition: 09:56 Co-signature as Attending Physician, Irvin Rosenberg MD I agree with the assessment and malinda plan of care. Disposition: 12/17/18 07:16 Discharged to Home. Impression: Upper abdominal pain, unspecified. - Condition is Stable. - Discharge Instructions: Abdominal Pain, Adult, [id number]. - Prescriptions for Bentyl 20 mg Oral Tablet - take 1 tablet by ORAL route every 6 hours As needed; 20 tablet. - Medication Reconciliation Form, Thank You Letter, Antibiotic Education, Prescription Opioid Use, Work release form form. - Follow up: Emergency Department; When: As needed; Reason: Worsening of condition. Follow up: Private Physician; When: 2 - 3 days; Reason: Recheck today's complaints, Continuance of care, Re-evaluation by your physician. Signatures: Dispatcher [employer] EDJoanne Salmon, Irvin Patel MD MD cha Wise, Tara RN RN tw2 Charisse Mccarty RN RN ea Corrections: (The following items were deleted from the chart) 07:35 07:16 12/17/2018 07:16 Discharged to Home. Impression: Upper abdominal pain, tw2 unspecified. Condition is Stable. Forms are Medication Reconciliation Form, Thank You Letter, Antibiotic Education, Prescription Opioid Use. Follow up: Emergency Department; When: As needed; Reason: Worsening of condition. Follow up: Private Physician; When: 2 - 3 days; Reason: Recheck today's complaints, Continuance of care, Re-evaluation by your physician. kb
[2018-12-17] MEDS ORDERED: FAMOTIDINE 20 MG/2 ML VIAL IV ONE (07:32)
[2018-12-17] MEDS ORDERED: KETOROLAC 30 MG/ML INJ ONE (07:33)
--- NOTE | 2018-12-17 08:24 | RAD REPORT ---
EXAM DESCRIPTION: US - Abdomen Exam Limited - 12/17/2018 7:00 am CLINICAL HISTORY: ABD PAIN COMPARISON: No comparisons FINDINGS: The gallbladder demonstrates no gallstones. No pericholecystic fluid or gallbladder wall t hickening. The common bile duct is normal measuring 4 mm. The liver demonstrates no findings of intrahepatic biliary dilatation. IMPRESSION: Unremarkable examination.
== END 2018-12-17 07:35 | disposition home or self-care (01) ==
LOC: ER 05:41
DX: R10.13 Epigastric pain (principal); E11.9 Type 2 diabetes mellitus without complications
CPT/HCPCS: 36415; 76705; 80048; 80076; 83690; 85025; 96374; 96375; 99284

== ENCOUNTER 2018-12-21 14:36 | Inpatient (IN) | payer OTHER ==
[2018-12-21] MEDS ORDERED: ASPIRIN 81 MG CHEWABLE TABLET ONE (15:23)
[2018-12-21] MEDS ORDERED: NA CHLORIDE 0.9% 2,000 ML ONE (15:23)
[2018-12-21] MEDS ORDERED: ACETAMINOPHEN 500 MG TAB ONE (15:23)
--- NOTE | 2018-12-21 15:33 | RAD REPORT ---
EXAM DESCRIPTION: RAD - Chest Single View - 12/21/2018 3:18 pm CLINICAL HISTORY: PALPITATIONS Chest pain. COMPARISON: Chest Single View dated 07/08/2018; Chest Pa And Lat (2 Views) dated 12/12/2017; CHEST PA AND LAT 2 VIEW dated 03/26/2012 FINDINGS: Portable technique limits examination quality. The lungs are grossly clear. The heart is normal in size. No displaced fractures. IMPRESSION: No acute intrathoracic process suspected.
[2018-12-21 15:44] LABS: Absolute Lymphocytes (CBC) 0.4 K/uL (0.7-4.9); Absolute Neutrophil 5.9 K/uL (1.8-8.0); Basophils % 0.1 % (0-1.3); Eosinophils % 0.1 % (0-4.4); Hematocrit 43.3 % (36.0-45.0); Lymphocytes % 6.4 % (15.3-44.8); MPV 8.7 fL (7.6-11.3); Monocytes % 0.3 % (3.3-12.3); RBC Red Blood Cell Count 4.94 M/uL (3.86-4.86)
[2018-12-21 16:00] LABS: Urine Bacteria <20 /HPF (<20); Urine Culture Reflex Order NOT NEEDED; Urine RBC <5 /HPF (NONE SEEN)
[2018-12-21 16:01] LABS: Urine Blood TRACE (NEG); Urine Glucose NEGATIVE (NEG); Urine Protein 2+ (NEG)
[2018-12-21 16:06] LABS: ALT/SGPT 25 U/L (12-78); AST/SGOT 19 U/L (15-37); Albumin 3.6 g/dL (3.4-5.0); Alkaline Phosphatase 92 U/L (45-117); BUN Blood Urea Nitrogen 8 mg/dL (7-18); Bicarbonate 22 mmol/L (21-32); Bilirubin Direct 0.5 mg/dL (0-0.2); Bilirubin Total 1.6 mg/dL (0.2-1.0); CKMB Creatine Kinase MB < 1.0 ng/mL (0.3-3.6); Creatine Phosphokinase 35 U/L (26-192); Glucose Level 114 mg/dL (74-106); Lipase 75 U/L (73-393); Potassium 3.2 mmol/L (3.5-5.1); Protein, Total 7.3 g/dL (6.4-8.2); Sodium Level 138 mmol/L (136-145); Troponin (Emerg Dept Use Only) < 0.02 ng/mL (0.0-0.045)
[2018-12-21 16:10] LABS: Protime INR 1.09
--- NOTE | 2018-12-21 16:39 | EDPHYS ---
Physician Documentation [facility] Name: Amarilys Posey Age: 48 yrs Sex: Female : 1970 Arrival Date: 12/21/2018 Time: 14:39 Bed 25 Private MD: ED Physician Irvin Rosenberg HPI: 12/21 16:00 This 48 yrs old Female presents to ER via Ambulatory with complaints of Fever, snw Palpitations, Chills. 16:00 The patient reports fever, not measured (subjective). Onset: The symptoms/episode snw began/occurred suddenly, last night. Associated signs and symptoms: Pertinent positives: chills, cough, recent abd pain, recent HIDA scan. Severity of symptoms: At their worst the symptoms were moderate. The patient has experienced a previous episode. as noted. 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 - Social history:: Smoking status: Patient/guardian denies using tobacco. - Ebola Screening: : No symptoms or risks identified at this time. ROS: 15:59 Eyes: Negative for injury, pain, redness, and discharge, ENT: Negative for injury, snw pain, and discharge, Neck: Negative for injury, pain, and swelling, Cardiovascular: Negative for chest pain, palpitations, and edema. 15:59 Abdomen/GI: Negative for abdominal pain, nausea, vomiting, diarrhea, and constipation, Back: Negative for injury and pain, : Negative for injury, bleeding, discharge, and swelling, MS/Extremity: Negative for injury and deformity, Skin: Negative for injury, rash, and discoloration, Neuro: Negative for headache, weakness, numbness, tingling, and seizure, Psych: Negative for depression, anxiety, suicide ideation, homicidal ideation, and hallucinations. 15:59 Constitutional: Positive for body aches, chills, fatigue, fever, malaise. 15:59 Respiratory: Positive for cough, with no reported sputum. Exam: 15:58 Head/Face: Normocephalic, atraumatic. Eyes: Pupils equal round and reactive to light, snw extra-ocular motions intact. Lids and lashes normal. Conjunctiva and sclera are non-icteric and not injected. Cornea within normal limits. Periorbital areas with no swelling, redness, or edema. ENT: Nares patent. No nasal discharge, no septal abnormalities noted. Tympanic membranes are normal and external auditory canals are clear. Oropharynx with no redness, swelling, or masses, exudates, or evidence of obstruction, uvula midline. Mucous membranes moist. Neck: Trachea midline, no thyromegaly or masses palpated, and no cervical lymphadenopathy. Supple, full range of motion without nuchal rigidity, or vertebral point tenderness. No Meningismus. Chest/axilla: Normal chest wall appearance and motion. Nontender with no deformity. No lesions are appreciated. 15:58 Abdomen/GI: Soft, non-tender, with normal bowel sounds. No distension or tympany. No guarding or rebound. No evidence of tenderness throughout. Back: No spinal tenderness. No costovertebral tenderness. Full range of motion. Skin: Warm, dry with normal turgor. Normal color with no rashes, no lesions, and no evidence of cellulitis. MS/ Extremity: Pulses equal, no cyanosis. Neurovascular intact. Full, normal range of motion. Neuro: Awake and alert, GCS 15, oriented to person, place, time, and situation. Cranial nerves II-XII grossly intact. Motor strength 5/5 in all extremities. Sensory grossly intact. Cerebellar exam normal. Normal gait. Psych: Awake, alert, with orientation to person, place and time. Behavior, mood, and affect are within normal limits. 15:58 Constitutional: The patient appears alert, awake, anxious, restless, uncomfortable. 15:58 Cardiovascular: Rate: tachycardic, Rhythm: regular, Pulses: no pulse deficits are appreciated. 15:58 ECG was reviewed by the Attending Physician. 15:58 Respiratory: the patient does not display signs of respiratory distress, Respirations: shallow respirations, tachypnea, Breath sounds: are clear throughout. Vital Signs: 14:53 BP 128 / 50; Pulse 160; Resp 22; Temp 100.0; Pulse Ox 98% on R/A; Weight 81.65 kg; la1 Height 5 ft. 5 in. (165.10 cm); Pain 4/10; 16:00 Pulse 124; Resp 18; Temp 100.4; Pulse Ox 98% on R/A; Pain 8/10; mg2 17:46 BP 108 / 73; Pulse 113; Resp 18; Pulse Ox 100% on R/A; Pain 2/10; mg2 18:15 BP 103 / 52; Pulse 118; Resp 18; Temp 99.2; Pulse Ox 98% on R/A; Pain 2/10; mg2 19:37 BP 96 / 60; Pulse 105; Resp 18; Temp 98.1; Pulse Ox 98% on R/A; Pain 0/10; mg2 14:53 Body Mass Index 29.95 (81.65 kg, 165.10 cm) la1 MDM: 14:56 Patient medically screened. snw 16:21 Data reviewed: vital signs, nurses notes. Data interpreted: Pulse oximetry: on room air snw is 98 %. Interpretation: normal. Counseling: I had a detailed discussion with the patient and/or guardian regarding: the historical points, exam findings, and any diagnostic results supporting the discharge/admit diagnosis, lab results, radiology results, the need for further work-up and treatment in the hospital. Physician consultation: Betty Carlos MD was called at 16:23, was contacted at 16:23, regarding admission, to the telemetry unit. would like further tests performed, CT scan, abd. 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 12/21 14:57 Order name: T\T\S 12/21 14:57 Order name: Basic Metabolic Panel w 12/21 14:57 Order name: Blood Culture Adult (2) w 12/21 14:57 Order name: CBC with Diff; Complete Time: 15:54 snw 12/21 14:57 Order name: Ckmb; Complete Time: 16:07 snw 12/21 14:57 Order name: CPK; Complete Time: 16:07 snw 12/21 14:57 Order name: Lactate; Complete Time: 16:07 snw 12/21 14:57 Order name: LFT's; Complete Time: 16:07 w 12/21 14:57 Order name: Lipase; Complete Time: 16:07 [facility] 12/21 14:57 Order name: Procalcitonin; Complete Time: 16:11 [facility] 12/21 14:57 Order name: Protime (+inr); Complete Time: 16:26 [facility] 12/21 14:57 Order name: Ptt, Activated; Complete Time: 16:26 [facility] 12/21 14:57 Order name: Troponin (emerg Dept Use Only); Complete Time: 16:07 [facility] 12/21 14:57 Order name: Urine Microscopic Only; Complete Time: 16:02 [facility] 12/21 14:57 Order name: Chest Single View XRAY; Complete Time: 15:37 [facility] 12/21 14:58 Order name: Type and Screen; Complete Time: 16:40 [facility] 12/21 14:58 Order name: Basic Metabolic Panel; Complete Time: 16:07 [facility] 12/21 14:58 Order name: Blood Culture [facility] 12/21 15:03 Order name: Flu; Complete Time: 16:02 [facility] 12/21 15:03 Order name: Strep; Complete Time: 16:02 [facility] 12/21 15:48 Order name: Urine Dipstick--Ancillary (enter results); Complete Time: 16:02 12/21 15:48 Order name: Urine --Ancillary (enter results); Complete Time: 16:02 12/21 16:00 [place] name[place] [facility] [place] 16:06 Order name: Throat Culture [facility] 12/21 16:27 Order name: CT Abd/Pelvis - W/Contrast; Complete Time: 19:17 [facility] 12/21 16:55 Order name: Hepatitis Panel,Acute [facility] 12/21 19:30 Order name: Lactate Sepsis 2 HR Follow-up; Complete Time: 19:32 [facility] 12/21 14:57 Order name: Accucheck; Complete Time: 15:57 [facility] 12/21 14:57 Order name: Cardiac monitoring; Complete Time: 15:45 [facility] 12/21 14:57 Order name: EKG - Nurse/Tech; Complete Time: 15:45 [facility] 12/21 14:57 Order name: IV Saline Lock - Large Bore; Complete Time: 15:45 [facility] 12/21 14:57 Order name: Labs collected and sent; Complete Time: 15:45 [facility] 12/21 14:57 Order name: O2 Per Protocol; Complete Time: 15:45 snw 12/21 14:57 Order name: O2 Sat Monitoring; Complete Time: 15:45 snw 12/21 14:57 Order name: Urine Dipstick-Ancillary (obtain specimen); Complete Time: 15:45 snw 12/21 15:49 Order name: Labs - recollect needed; Complete Time: 16:17 eb 12/21 16:54 Order name: CONS Physician Consult [facility] 12/21 16:54 Order name: NPO [facility] Administered Medications: 15:37 Drug: NS 0.9% (30 ml/kg) 30 ml/kg Route: IV; Rate: bolus; Site: left antecubital; mg2 19:55 Follow up: Response: No adverse reaction; Marked relief of symptoms; IV Status: mg2 Completed infusion; IV Intake: 2400ml 15:37 Drug: Aspirin Chewable Tablet 324 mg Route: PO; mg2 17:57 Follow up: Response: No adverse reaction mg2 15:37 Drug: Tylenol 1000 mg Route: PO; mg2 17:57 Follow up: Response: No adverse reaction; Marked relief of symptoms mg2 17:01 Not Given (Physician Discretion): NS 0.9% 1000 ml IV at 1000 ml once iw 17:16 Drug: Rocephin 1 grams Route: IV; Rate: calculated rate; Site: left antecubital; mg2 17:56 Follow up: Response: No adverse reaction; IV Status: Completed infusion mg2 Point of Care Testing: Blood Glucose: 16:00 Blood Glucose: 123 mg/dL; mg2 Ranges: Critical Glucose Levels:Adult <50 mg/dl or >400 mg/dl <40 mg/dl or >180 mg/dl Disposition: 12/21/18 16:37 Hospitalization ordered by Betty Carlos for Inpatient Admission. Preliminary diagnosis are Fever, unspecified, Dehydration, Tachycardia, unspecified, Unspecified abdominal pain. - Bed requested for Telemetry/MedSurg (Inpatient). - Status is Inpatient Admission. mg2 - Condition is Stable. - Problem is new. - Symptoms are unchanged. UTI on Admission? No Addendum: 12/24/2018 08:37 Co-signature as Attending Physician, Irvin Rosenberg MD I agree with the assessment and c bermudez plan of care. Signatures: Dispatcher [employer] EDMS [place], Iman, RN RN dw Irvin Rosenberg MD MD cha Therrien, Shelly, RETAIL PERFORMANCE SPECIALIST-C RETAIL PERFORMANCE SPECIALIST-Csnw Katya Olmstead, RN RN iw Dimitri Gonzalez RN RN la1 Ashley Butcher Michele, RN RN mg2 Corrections: (The following items were deleted from the chart) 12/21 15:45 14:57 [place] ordered. snw mg2 19:26 16:37 Hospitalization Ordered by Betty Carlos MD for Inpatient Admission. Preliminary dw diagnosis is Fever, unspecified; Dehydration; Tachycardia, unspecified; Unspecified abdominal pain. Bed requested for Telemetry/MedSurg (Inpatient). Status is Inpatient Admission. Condition is Stable. Problem is new. Symptoms are unchanged. UTI on Admission? No. snw 20:04 19:26 12/21/2018 16:37 Hospitalization Ordered by Betty Carlos MD for Inpatient mg2 Admission. Preliminary diagnosis is Fever, unspecified; Dehydration; Tachycardia, unspecified; Unspecified abdominal pain. Bed requested for Telemetry/MedSurg (Inpatient). Status is Inpatient Admission. Condition is Stable. Problem is new. Symptoms are unchanged. UTI on Admission? No. dw
--- NOTE | 2018-12-21 16:39 | ER ---
Nurse's Notes [facility] Name: Amarilys Posey Age: 48 yrs Sex: Female : 1970 Arrival Date: 12/21/2018 Time: 14:39 Bed 25 Private MD: Diagnosis: Fever, unspecified;Dehydration;Tachycardia, unspecified;Unspecified abdominal pain Presentation: 12/21 14:51 Presenting complaint: Patient states: I was in the ER on 12/17 for what we thought was la1 gall bladder issues but they couldn't see anything so they sent me to dr hart and I had a HIDA scan yesterday but dont have the results. Last night I started with fever and chills and just feeling very bad. Pt reports RUQ pain. Transition of care: patient was not received from another setting of care. Onset of symptoms was December 21, 2018. Risk Assessment: Do you want to hurt yourself or someone else? Patient reports no desire to harm self or others. Initial Sepsis Screen: Does the patient meet any 2 criteria? HR > 90 bpm. Does the patient have a suspected source of infection? Yes:. Care prior to arrival: None. 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 - Social history:: Smoking status: Patient/guardian denies using tobacco. - Ebola Screening: : No symptoms or risks identified at this time. Screenin:59 Abuse screen: Denies threats or abuse. Denies injuries from another. Nutritional mg2 screening: No deficits noted. Tuberculosis screening: No symptoms or risk factors identified. Fall Risk IV access (20 points). Assessment: 15:59 General: Appears in no apparent distress. comfortable, Behavior is calm, cooperative. mg2 17:45 Pain: Complains of pain in abdomen Pain does not radiate. Pain currently is 4 out of 10 mg2 on a pain scale. Quality of pain is described as aching, Pain began gradually, Is intermittent. Neuro: Level of Consciousness is awake, alert, obeys commands, Oriented to person, place, time, situation. Cardiovascular: Capillary refill < 3 seconds Patient's skin is warm and dry. Cardiovascular: Reports palpitations, shortness of breath. Respiratory: Airway is patent Respiratory effort is even, unlabored, Respiratory pattern is regular, symmetrical. GI: Abdomen is non-distended, Reports lower abdominal pain, upper abdominal pain. : No signs and/or symptoms were reported regarding the genitourinary system. EENT: No signs and/or symptoms were reported regarding the EENT system. Derm: Skin is intact, is healthy with good turgor, Skin is pink, warm \T\ dry. normal. Musculoskeletal: Circulation, motion, and sensation intact. Capillary refill < 3 seconds. 18:15 Reassessment: dr peter and dr hart came and examined the patient. dr peter advised mg2 for admission. 19:54 Reassessment: Patient states feeling better. mg2 Vital Signs: 14:53 BP 128 / 50; Pulse 160; Resp 22; Temp 100.0; Pulse Ox 98% on R/A; Weight 81.65 kg; la1 Height 5 ft. 5 in. (165.10 cm); Pain 4/10; 16:00 Pulse 124; Resp 18; Temp 100.4; Pulse Ox 98% on R/A; Pain 8/10; mg2 17:46 BP 108 / 73; Pulse 113; Resp 18; Pulse Ox 100% on R/A; Pain 2/10; mg2 18:15 BP 103 / 52; Pulse 118; Resp 18; Temp 99.2; Pulse Ox 98% on R/A; Pain 2/10; mg2 19:37 BP 96 / 60; Pulse 105; Resp 18; Temp 98.1; Pulse Ox 98% on R/A; Pain 0/10; mg2 14:53 Body Mass Index 29.95 (81.65 kg, 165.10 cm) la1 ED Course: 14:39 Patient arrived in ED. rg4 14:44 Mary Carmen Simpson [facility]-C [facility] snw 14:44 Irvin Rosenberg MD is Attending Physician. snw 14:52 Triage completed. la1 14:53 Arm band placed on left wrist. la1 15:05 Arian Sahu NICHOL is Primary Nurse. mg2 15:19 Chest Single View XRAY In Process Unspecified. EDMS 15:45 First set of blood cultures drawn by me, Second set of blood cultures drawn by me. mg2 15:58 No provider procedures requiring assistance completed. Inserted saline lock: 20 gauge mg2 in left antecubital area, using aseptic technique. Blood collected. 16:35 Betty Peter MD is Hospitalizing Provider. snw 17:47 Patient has correct armband on for positive identification. quality assurance monitor final on. Pulse mg2 ox on. NIBP on. Door closed. 18:42 CT Abd/Pelvis - W/Contrast In Process Unspecified. EDMS 19:54 Patient admitted, IV remains in place. mg2 Administered Medications: 15:37 Drug: NS 0.9% (30 ml/kg) 30 ml/kg Route: IV; Rate: bolus; Site: left antecubital; mg2 19:55 Follow up: Response: No adverse reaction; Marked relief of symptoms; IV Status: mg2 Completed infusion; IV Intake: 2400ml 15:37 Drug: Aspirin Chewable Tablet 324 mg Route: PO; mg2 17:57 Follow up: Response: No adverse reaction mg2 15:37 Drug: Tylenol 1000 mg Route: PO; mg2 17:57 Follow up: Response: No adverse reaction; Marked relief of symptoms mg2 17:01 Not Given (Physician Discretion): NS 0.9% 1000 ml IV at 1000 ml once iw 17:16 Drug: Rocephin 1 grams Route: IV; Rate: calculated rate; Site: left antecubital; mg2 17:56 Follow up: Response: No adverse reaction; IV Status: Completed infusion mg2 Point of Care Testing: Blood Glucose: 16:00 Blood Glucose: 123 mg/dL; mg2 Ranges: Intake: 17:45 IV: 2000ml; Total: 2000ml. mg2 19:55 IV: 2400ml; Total: 4400ml. mg2 Output: 17:45 Urine: 400ml (Voided); Total: 400ml. mg2 18:18 Urine: 500ml (Voided); Total: 900ml. mg2 Outcome: 16:37 Decision to Hospitalize by Provider. snw 19:54 Admitted to Tele accompanied by tech, via wheelchair, room 405, with chart, Report mg2 called to NICHOL Bernard 19:54 Condition: stable 19:54 Instructed on the need for admit, Demonstrated understanding of instructions. 20:04 Patient left the ED. mg2 Signatures: Dispatcher [employer] EDMS Mary Carmen Simpson, SENIOR MANAGER QUALITY ASSURANCE-C SENIOR MANAGER QUALITY ASSURANCE-Csnw Dimitri Gonzalez RN RN la1 Malathi Barba rg4 Arian Sahu RN RN mg2 Katya Olmstead RN iw Corrections: (The following items were deleted from the chart) 17:46 15:59 General: Appears mg2 mg2 19:39 19:37 Pulse 105bpm; Resp 18bpm; Pulse Ox 98% RA; Temp 98.1F; Pain 0/10; mg2 mg2
[2018-12-21] MEDS ORDERED: ONDANSETRON 4 MG/2 ML VIAL IV PRN (16:48)
--- NOTE | 2018-12-21 17:09 | P.HP ---
Certification for Inpatient Patient admitted to: Inpatient With expected LOS: >2 Midnights Practitioner: I am a practitioner with admitting privileges, knowledge of patient current condition, hospital course, and medical plan of care. Services: Services provided to patient in accordance with Admission requirements found in Title 42 Section 412.3 of the Code of Federal Regulations Patient History Date of Service: 12/21/18 Reason for admission: Fever and Chills History of Present Illness: This is a 48-year-old female with significant past medical history of type 2 diabetes and hyperlipidemia who presented to the ED complaining of having fever and chills. Patient stated that her urine shows started last night and has been getting progressively worse. Patient stated that her temperature has been 100.4-100.6 at home. Chills have been really bad where she has to sleep in her shorts yesterday. Patient stated that she was here in the ER on 12/17/2018 for right upper quadrant pain and fever and chills had an abdominal ultrasound done at that time which was negative for any acute abnormality and thus she was discharged home under stable condition. After which she said that she was doing well however the pain did return. Patient stated that she had a HIDA scan done yesterday which was over that up outpatient after she was discharged from the ER. Patient denies having any nausea vomiting shortness of breath chest pain diarrhea or any other associated symptoms. Patient does state however that she she has pain every time she tries to take a deep breath in and feels bloated like she is on her period. Patient denies having any sick contacts lately traveling outside of the [place] In the ER patient had extensive lab work and imaging done. Lab work was consistent with a left shift on CBC along with elevated lactic acid and pro calcitonin. Abdominal CT is pending at this time. Allergies No Known Allergies Allergy (Unverified 07/09/18 10:14) Home Medications: Empagliflozin [Jardiance] 25 mg PO DAILY 10/16/16 Lisinopril 5 mg PO DAILY 07/08/18 Metoprolol Tartrate [Lopressor*] 12.5 mg PO BID 6AM 6PM #30 tab 07/09/18 - Past Medical/Surgical History Diabetic: Yes -: Diabetes mellitus, [id number] -: Tubal ligation - Family History Father -: Diabetes Mother -: Cancer Sister -: Cancer - Social History Alcohol use: Yes CD- Drugs: No Caffeine use: Yes Review of Systems 10-point ROS is otherwise unremarkable Physical Examination - Physical Exam General: Alert, Other (Ill-appearing, in mild distress) Respiratory: Clear to auscultation bilaterally, Normal air movement Cardiovascular: Regular rate/rhythm, Normal S1 S2 Gastrointestinal: Normal bowel sounds, Distended, Tenderness (Generalized tenderness more in left lower quadrant and right upper quadrant), Rebound, Guarding (Epigastric area) Musculoskeletal: No tenderness Integumentary: No rashes Neurological: Normal speech, Normal tone Lymphatics: No axilla or inguinal lymphadenopathy - Studies Laboratory Data (last 24 hrs) 12/21/18 16:04: PT 12.8 H, INR 1.09, APTT 28.1 12/21/18 15:30: WBC 6.4 D, Hgb 14.6, Hct 43.3, Plt Count 216 12/21/18 15:30: Sodium 138, Potassium 3.2 L, BUN 8, Creatinine 0.87, Glucose 114 H, Total Bilirubin 1.6 H, AST 19, ALT 25, Alkaline Phosphatase 92, Lipase 75 Microbiology Data (last 24 hrs): 12/21/18 15:30 Throat Group A Streptococcus Rapid Screen - Final 12/21/18 15:30 Nasopharnyx Influenza Type A Antigen Screen - Final 12/21/18 15:30 Nasopharnyx Influenza Type B Antigen Screen - Final Assessment and Plan - Problems (Diagnosis) (1) Abdominal pain Current Visit: Yes Status: Acute Plan: Patient with right upper quadrant pain, left lower quadrant pain, generalized tenderness as well. -patient also has guarding and rebound tenderness in the left lower quadrant and right lower quadrant -abdominal ultrasound on 12/17/18 negative for any gallstones or cholecystitis -HIDA scan 12/20/18 consistent with ejection fraction of 1% -abdominal CT is pending at this time -general surgery was also consulted in the ER. -General Surgery recommended to await for abdominal CT before making a decision on admission. If patient requires other specialty support such as GI after abdominal CT is done then patient will need to be transferred out to a tertiary care center from the ER, if not then patient will be admitted to the hospital for further workup. Qualifiers: Abdominal location: generalized Qualified Code(s): R10.84 - Generalized abdominal pain (2) Sepsis Current Visit: Yes Status: Acute Plan: Sepsis with tachycardia (heart rate of 160 in ER), unknown source at this time. -2 L of IV fluids in the ER. Will start on NS at 100 ml/hr -started patient on IV Zosyn at this time. Received 1 dose of Rocephin in the ER -blood culture and urine culture pending at this -abdominal CTs pending at this time Qualifiers: Sepsis type: sepsis due to unspecified organism Qualified Code(s): A41.9 - Sepsis, unspecified organism (3) Diabetes mellitus, type 2 Onset Date: 07/09/18 Current Visit: No Status: Chronic Plan: Insulin sliding scale and Accu-Chek Qualifiers: Diabetes mellitus salvage determiner insulin use: without salvage determiner use Diabetes mellitus complication status: without complication Qualified Code(s): E11.9 - Type 2 diabetes mellitus without complications - Plan Currently pending abdominal CT. Depending on the results of the abdominal CT. Patient will be either transferred out to the tertiary care center from the ER worse is admitted to the hospital here for further care. Discharge Plan: Home Plan to discharge in: Greater than 2 days - Advance Directives Does patient have a Living Will: No Does patient have a Durable POA for Healthcare: No - Code Status/Comfort Care Code Status Assessed: Yes Critical Care: No
[2018-12-21] MEDS ORDERED: CEFTRIAXONE/SWI 1gm 1 GM/10 ML SYR ONE (17:23)
[2018-12-21] MEDS: PIPER/TAZO/NS 3.375gm 3.375 GM/100 ML BAG IVPB SCH ×2 (18:00→23:27)
[2018-12-21] MEDS ORDERED: NA CHLORIDE 0.9% 500 ML ONE (18:16)
--- NOTE | 2018-12-21 18:55 | RAD REPORT ---
EXAM DESCRIPTION: CTAbdomen Pelvis W Contrast - 12/21/2018 6:41 pm CLINICAL HISTORY: Abdominal pain. ABD PAIN COMPARISON: <Comparisons> TECHNIQUE: Biphasic CT imaging of the abdomen and pelvis was performed with 100 ml non-ionic IV cont rast. All CT scans are performed using dose optimization technique as appropriate and may include automated exposure control or mA/KV adjustment according to patient size. FINDINGS: The lung bases are clear. Diffuse fatty liver is seen with 16 mm benign-appearing cyst in the caudate lobe. No aggressive liver lesion or biliary dilatation. The spleen, pancreas, adrenal glands and kidneys are within normal perry its. No bowel obstruction, free air, free fluid or abscess. The appendix is normal. No evidence of signi ficant lymphadenopathy. No suspicious bony findings. The uterus appears enlarged with several fibroid suspected. IMPRESSION: No acute intra-abdominal or pelvic finding. Diffuse fatty liver.
[2018-12-21] MEDS: INSULIN -REGULAR HUMAN 50 UNIT/0.5 ML ML SQ SCH (21:00)
[2018-12-21] MEDS: NA CHLORIDE 0.9% 1,000 ML IV SCH (21:25)
[2018-12-21] MEDS ORDERED: PIPERACIL/TAZO 3.375 GM VIAL IV ONE (23:24)
[2018-12-21] MEDS: ACETAMINOPHEN 325 MG TABLET PO PRN (23:26)
[2018-12-21] MEDS ORDERED: NA CHLORIDE 0.9% 100 ML IV ONE (23:29)
[2018-12-22] MEDS ORDERED: NA CHLORIDE 0.9% 100 ML IV ONE (03:37)
[2018-12-22] MEDS: PIPER/TAZO/NS 3.375gm 3.375 GM/100 ML BAG IVPB SCH ×3 (05:12→22:45)
[2018-12-22 05:46] LABS: Absolute Lymphocytes (CBC) 0.9 K/uL (0.7-4.9); Absolute Monocytes 0.5 K/uL (0.1-1.3); Absolute Neutrophil 11.1 K/uL (1.8-8.0); Basophils % 0.2 % (0-1.3); Eosinophils % 0.3 % (0-4.4); Hematocrit 33.4 % (36.0-45.0); Lymphocytes % 7.1 % (15.3-44.8); MPV 8.6 fL (7.6-11.3); Monocytes % 3.6 % (3.3-12.3)
[2018-12-22 06:08] LABS: ALT/SGPT 23 U/L (12-78); AST/SGOT 18 U/L (15-37); Albumin 2.5 g/dL (3.4-5.0); Alkaline Phosphatase 68 U/L (45-117); BUN Blood Urea Nitrogen 7 mg/dL (7-18); Bicarbonate 23 mmol/L (21-32); Bilirubin Total 0.8 mg/dL (0.2-1.0); Glucose Level 101 mg/dL (74-106); Potassium 3.1 mmol/L (3.5-5.1); Protein, Total 5.8 g/dL (6.4-8.2); Sodium Level 144 mmol/L (136-145)
[2018-12-22] MEDS: INSULIN -REGULAR HUMAN 50 UNIT/0.5 ML ML SQ SCH ×5 (07:30→23:45)
[2018-12-22] MEDS: ACETAMINOPHEN 325 MG TABLET PO PRN (08:47)
--- NOTE | 2018-12-22 10:08 | EKG ---
Test Date: 2018-12-21 Test Time: 15:40:28 Hearing Consultant: MG MEASUREMENT RESULTS: Intervals: Rate: 129 TX: 138 QRSD: 78 QT: 302 QTc: 442 [place]: P: 52 TX: 138 QRS: 10 T: 24 INTERPRETIVE STATEMENTS: Sinus tachycardia Nonspecific ST abnormality Abnormal ECG Compared to ECG 07/08/2018 14:21:31 ST (T wave) deviation now present Sinus rhythm no longer present Electronically Signed On 12-22-18 10:05:47 CDT by Sukhdev Lawrence
--- NOTE | 2018-12-22 10:22 | P.PN ---
Subjective Date of Service: 12/22/18 Chief Complaint: Fever and Chills Pt seen and examined at bedside. Chart Reviewed. Case DW with General Surgery. This AM pt denies having N/V. Does complain now of having Diarrhea that she did not have yesterday. No fever or chills overnight. Review of Systems 10-point ROS is otherwise unremarkable Physical Examination - Vital Signs Temperature: 97.7 F Blood Pressure: 106/55 Pulse: 89 Respirations: 16 Pulse Ox (%): 98 - Physical Exam General: Alert, In no apparent distress HEENT: Atraumatic, PERRLA, EOMI Neck: Supple, JVD not distended Respiratory: Clear to auscultation bilaterally, Normal air movement Cardiovascular: Regular rate/rhythm, Normal S1 S2 Gastrointestinal: Normal bowel sounds, Tenderness (RUQ and Epigastric Tenderness ) Musculoskeletal: No tenderness Integumentary: No rashes Neurological: Normal speech, Normal tone, Normal affect Lymphatics: No axilla or inguinal lymphadenopathy - Studies Laboratory Data (last 24 hrs) 12/21/18 16:04: PT 12.8 H, INR 1.09, APTT 28.1 12/21/18 15:30: WBC 6.4 D, Hgb 14.6, Hct 43.3, Plt Count 216 12/21/18 15:30: Sodium 138, Potassium 3.2 L, BUN 8, Creatinine 0.87, Glucose 114 H, Total Bilirubin 1.6 H, AST 19, ALT 25, Alkaline Phosphatase 92, Lipase 75 Microbiology Data (last 24 hrs): 12/21/18 15:30 Throat Group A Streptococcus Rapid Screen - Final 12/21/18 15:30 Nasopharnyx Influenza Type A Antigen Screen - Final 12/21/18 15:30 Nasopharnyx Influenza Type B Antigen Screen - Final Medications List Reviewed: Yes Assessment And Plan - Current Problems (Diagnosis) (1) Abdominal pain Current Visit: Yes Status: Acute Plan: Patient with right upper quadrant pain, left lower quadrant pain, generalized tenderness as well. Now Improving -patient also has guarding and rebound tenderness in the RUQ and Epigastric Area today -Now with diarrhea today -abdominal ultrasound on 12/17/18 negative for any gallstones or cholecystitis -HIDA scan 12/20/18 consistent with ejection fraction of 1% -abdominal CT consistent with Diffuse Fatty liver and Enlarged Utreus with Fibroids. -general surgery consulted. Appreciated Reccs -If pt continues to have RUQ pain, will need gallbladder removed due to possbility of Acalculous Cholecystitis -Will monitor closely and keep NPO on fluids and IV abx Qualifiers: Abdominal location: generalized Qualified Code(s): R10.84 - Generalized abdominal pain (2) Sepsis Current Visit: Yes Status: Acute Plan: Sepsis with tachycardia (heart rate of 160 in ER), unknown source at this time. DDX includes Acute Hepatitis, Acalculous Liz, [employer] infection -On NS 100ml.hr. Hemo dynamically Stable now -On Zosyn and Flagyl now -blood culture, urine culture and stool culture are pending at this -Hepatitis panel pending as well -Ordered TVUS as well Qualifiers: Sepsis type: sepsis due to unspecified organism Qualified Code(s): A41.9 - Sepsis, unspecified organism (3) Diabetes mellitus, type 2 Onset Date: 07/09/18 Current Visit: No Status: Chronic Plan: Insulin sliding scale and Accu-Chek Qualifiers: Diabetes mellitus senior care insulin use: without senior care use Diabetes mellitus complication status: without complication Qualified Code(s): E11.9 - Type 2 diabetes mellitus without complications - Plan Pending clinical Improvement at this time. Will monitor closely and f.u with Culture and surgery for further reccs Discharge Plan: Home Plan to discharge in: 48 Hours - Code Status/Comfort Care Code Status Assessed: Yes Critical Care: No
[2018-12-22] MEDS: NA CHLORIDE 0.9% 1,000 ML IV SCH ×3 (10:35→23:00)
[2018-12-22] MEDS ORDERED: BUPIVACA 0.25%/EPI 0.0005% MDV 50 ML VIAL ONE (11:41)
[2018-12-22] MEDS: METRONIDAZOLE 500mg IVPB 500 MG/100 ML BAG IV SCH ×2 (12:00→17:16)
[2018-12-22] MEDS ORDERED: SUCCINYLCHOLINE 20 MG/ML (10 ML) IV ONE (12:17)
[2018-12-22] MEDS ORDERED: PROPOFOL 200 MG/20 ML VIAL IV ONE (12:22)
[2018-12-22] MEDS ORDERED: FENTANYL CITR 100 MCG/2 ML ONE ×3 (12:22→14:35)
[2018-12-22] MEDS ORDERED: MIDAZOLAM HCL 2 MG/2 ML INJ ONE (12:22)
[2018-12-22] MEDS ORDERED: ROCURONIUM 50 MG/5 ML VIAL IV ONE (12:23)
[2018-12-22] MEDS ORDERED: VANCOMYCIN 1.5 GM in NA CHLORIDE 0.9% 500 ML IVPB SCH (13:00)
[2018-12-22] MEDS ORDERED: GLYCOPYRROLATE 0.2 MG/ML SYR ONE (13:59)
[2018-12-22] MEDS ORDERED: NEOSTIGMINE 1 MG/ML -10 ML VIAL ONE (13:59)
--- NOTE | 2018-12-22 14:18 | P.OP ---
Preoperative diagnosis: Cholecystitis Postoperative diagnosis: Foreign Body Perforation of Stomach, Hepatic abscess Primary procedure: Laparoscopic Exploration Secondary procedure: Open Mitchel Patch of Gastric Perforatoin Anesthesia: GETA + Local Estimated blood loss: <10cc Specimen: Foreign Body Findings: Foreign body perforation of lesser curve, hepatic abscess Complications: None Drain(s): Nasogastric, LYRIC drain Implants: Seprafilm Transferred to: Recovery Room Condition: Good
[2018-12-22] MEDS: HYDROMORPHONE HCL 1 MG/ML INJ ONE ×4 (14:40→14:56)
[2018-12-22] MEDS ORDERED: Ringers Lactate 1,000 ML IV ONE (14:42)
[2018-12-22] MEDS ORDERED: KETOROLAC 30 MG/ML INJ ONE (14:52)
[2018-12-22] MEDS: VANCOMYCIN 1.5 GM in NA CHLORIDE 0.9% 500 ML IVPB SCH (16:00)
[2018-12-22] MEDS: KCL 20 MEQ/100 mL IVPB 20 MEQ/100 ML BAG IV SCH ×2 (16:27→20:40)
--- NOTE | 2018-12-22 17:24 | CON ---
Date of Consultation: 12/21/2018 Brief History Of Present Illness: The patient is a 48-year-old female known to me from prev ious clinic visits with diabetes and hyperlipidemia, who presented to the ER with having fever and ch ills. She stated that she has had some slight epigastric and generalized abdominal pain as well, wor st in the epigastrium and right upper quadrant, but it was global generally. This is very similar to her previous complaints. I ordered a HIDA scan on her from the clinic, which was performed on the 09 02, which showed a gallbladder ejection fraction of 1%. Otherwise, no evidence of cholecystitis. S he did have some pain, however, with the CCK injection, which was only 4/10, which is near her baseli ne abdominal pain by description. She had chills and fever to 100.4 to 100.6 at home. She came to [facility] with the above-stated complaints. Past Medical History: Significant for diabetes and hyperlipidemia. Past Surgical History: Includes only tubal ligation. Home Medications: Include Jardiance, lisinopril, and Lopressor. Allergies: NO KNOWN DRUG ALLERGIES. Social History: She drinks alcohol recreationally. Denies tobacco or any other recreational drug us e. Review of Systems: A 10-point review of systems other than HPI, denies. Physical Examination: Vital Signs: At the time of examination, her BMI is 30. Her blood pressure was 100/51, pulse 106, r espiratory rate 20, temperature is 98.5. General: She is awake, alert, oriented. Psychiatric: She is appropriate, conversive. She appears in mild distress. HEENT: Sclerae are anicteric. Mucous membranes are moist. Oropharynx is clear. Neck: Supple. No JVD. Cardiovascular: Tachycardia, otherwise regular rhythm. Chest: Normal expansion and excursion otherwise. Pulmonary: Clear to auscultation bilaterally. Abdomen: Soft with mild global tenderness to palpation, worst at the right upper quadrant. Negative Burciaga sign. No rebound. No guarding. No focal peritonitis. Extremities: No clubbing, cyanosis, or edema. Laboratory Data: Reveals a white blood count of 6.4, hemoglobin 14.6, hematocrit of 43.3, platelet c ount is 216, neutrophils are 93%. Her PT is 12.8, INR 1.09, PTT is 28.1. Sodium is 138, potassium 3 .2, chloride 107, carbon dioxide 22, BUN 8, creatinine 0.8. Her glucose is 130, lactic acid is 1.9, total bilirubin 1.6, direct component 0.5, AST 19, ALT 25, alk phos is normal at 92. CK-MB is less t brown 1. Rapid troponin is 0.02. Lipase is 75. Procalcitonin was 2.3. Her UA showed ketones, trace blood, 5-10 epithelial cells, 2+ protein. Her test was negative. She had imaging performe d, which included a HIDA scan on 12/20 and ultrasound on 12/17. The abdominal ultrasound was vaibhav nieto read as unremarkable. The gallbladder demonstrates no gallstones, no pericholecystic fluid or ga llbladder wall thickening. Common bile duct is normal measuring 4 mm. Liver demonstrates no finding s of intrahepatic biliary ductal dilatation. She additionally had a HIDA scan performed on 12/20, wh ich was officially read as patent cystic duct and patent sphincter of Oddi. No delay in visualizatio n of the gallbladder, biliary tree or duodenum. Ejection fraction is 1%. No measurable contraction of the gallbladder. The patient reported soreness in the anterior and posterior right upper quadrant prior to the examination, did not have any numeric value during the CCK infusion, reported intermitt ent right upper quadrant pain rated as a 4/10 at its worst. She additionally had an abdomen and pelv is CT on admission on 12/21/2018, which was read as no acute intraabdominal or pelvic findings and a diffuse fatty liver. She had a chest x-ray performed as well on 12/21, which was officially read as no acute intrathoracic process suspected. Assessment And Plan: This is a 48-year-old female who comes in with signs and symptoms of possible a calculous cholecystitis. 1.IV fluid hydration. 2.Antibiotic coverage with Zosyn 3.375 IV q.6 h. 3.Continue medical management. 4.I have explained the risks, benefits, and alternatives of laparoscopic, possible open cholecystect jabier including, but not limited to bleeding, infection, damage to surrounding tissues, need for further operating procedures. The patient agrees to proceed as indicated. ONEL/CONNIE Voice ID: [id number] Report ID: [id number]
[2018-12-22] MEDS: MORPHINE 2 MG/ML SYR IV PRN ×2 (20:38→22:38)
[2018-12-23] MEDS: METRONIDAZOLE 500mg IVPB 500 MG/100 ML BAG IV SCH ×5 (01:00→23:33)
[2018-12-23] MEDS: MORPHINE 2 MG/ML SYR IV PRN ×8 (01:20→21:31)
--- NOTE | 2018-12-23 02:01 | OP ---
Date of Procedure: 12/22/2018 Surgeon: Frank Hansen MD, Brief History Of Present Illness: The patient is a 48-year-old female known to me from recent clinic visit this last week when she came with abnormal abdominal pain in the epigastric and globally over the abdomen generally. There was no area focality, which was significantly worse than the others. T here was some increased pain in the epigastrium and slightly in the right upper quadrant, but otherwi se there was no radiation. She had fevers, chills, and the pain was constant. It had no intermitten t nature. It was not associated with particular meals. She had an ultrasound as an outpatient, whic h showed a completely normal gallbladder with no cholelithiasis, no evidence of cholecystitis or any other acute findings. I ordered a HIDA scan on her, which was negative for acute or chronic cholecys titis, but did show biliary dyskinesia with an ejection fraction of 1%. She had a CT scan performed upon admission to the hospital as she was grossly tachycardic and feeling quite ill generally with ma laise, fatigue, chills, and she was febrile to almost 101. The CT scan did not show any acute findin gs on the official read; however, there was a cystic structure in the caudate lobe. I opted to take the patient to the operating room for a possible laparoscopic cholecystectomy as she did have a diagn osis of biliary dyskinesia and although the presentation was somewhat atypical, I had concerns that w ould have converted to cholecystitis even despite the CT findings. She continued to have pain in the epigastrium and right upper quadrant. Upon entry to the abdomen, I had noted that the patient did n ot in fact have evidence of cholecystitis, but rather had a hepatic abscess emanating from a gastric perforation from a foreign body, which appeared to be a toothpick, which had stabbed through the less er curve near the pylorus, which was firmly entrenched in the area of the caudate lobe. Preoperative Diagnosis: Cholecystitis/biliary dyskinesia. Postoperative Diagnosis: Foreign body perforation of stomach with hepatic abscess. Procedures: 1.Laparoscopic exploration. 2.Converted to open exploratory laparotomy. 3.Evacuation of hepatic abscess. 4.Mitchel patch repair of gastric perforation after foreign body removal. 5.Abdominal washout. 6.Primary abdominal closure and placement of right hepatic fossa LYRIC 10-Mauritian drain. Anesthesia: General endotracheal plus local. Estimated Blood Loss: 10 cc. Specimen: Foreign body, appeared to be toothpick. Findings: As above. Foreign body perforation to the lesser curve of stomach with hepatic abscess. Complications: None. Drains: 1.Nasogastric. 2.A 10-Mauritian flat LYRIC drain. Implants: Seprafilm. Disposition: Transferred to recovery room in good condition. Procedure In Detail: After informed consent was obtained, the patient was brought to the operating r oom, prepped and draped in usual sterile fashion. After adequate anesthesia was achieved, a supraumb ilical area was anesthetized with 0.25% Marcaine and sharply incised and a 5 mm 0-degree optical troc ar was introduced in the abdomen without evidence of complication. Insufflation was obtained to 15 m mHg at this time. The patient was positioned slightly in head-up position. Slightly to the right of midline, an incision was made in the skin and a 5-mm trocar was placed under direct visualization wi thout evidence of complication. I then upsized the umbilical trocar to a 12 mm under direct visualiz ation without evidence of complication. I then placed an additional 5 mm trocar in the right upper q uadrant. This was similarly anesthetized, sharply incised, and a 5-mm trocar was introduced into the abdomen without evidence of complication. The patient was then positioned to head-up right-sided po sition, and I grasped the patient's omentum, pulled it inferiorly, and grasped the gallbladder, and p laced it towards the patient's right shoulder. I dissected down to the triangle of Calot area and no frank without using electrocautery, simply using blunt dissection, a significant amount of purulent flu id was emanating consistent with pus from near the caudate lobe. I suctioned this out as there was a significant amount of pus in this area, which appeared to have no continuity with the gallbladder. I then grasped this patient's stomach and pulled it inferiorly, and as I did this slowly, a foreign b rios was noted to be emanating from the lesser curve of the stomach near the pyloric region, which had apparently impaled the caudate lobe of the liver and through the stomach. I had pulled this down un til the foreign body was removed from the liver at this time. I suctioned out the hepatic abscess at this time, but did not dissect into the liver at this time. I irrigated until completely clear. I then grasped the foreign body and removed it from the stomach leaving a small hole. I then removed t his foreign body, which was inspected on the back table and found to be consistent with a wooden toot hpick. It was sent off for ID to Pathology. I then irrigated the area copiously and palpated the ar ea to see if this Mitchel patch could be performed laparoscopically. However, due to the proximity of the common duct and hepatic artery and portal structures, I felt that it would be safer to convert t o an open procedure at this time as there was significant thickened inflammatory rind in this area. Prior to removal of the trocars, I attempted to dissect the area with blunt dissection and had some d ifficulty. As such, I placed an additional 12 mm trocar under direct visualization to the left of th e periumbilical trocar under direct visualization. This port was not beneficial in assisting the alessandro lity to better visualize the above structures and as such, I decided to open the patient and perform an exploratory laparotomy. The exploratory laparotomy was performed after removing all trocars and t he abdomen was slightly desufflated using an upper midline incision with a 10-blade scalpel. Dissect ion continued down through the subcutaneous fat using electrocautery to expose the fascia. Using the previously placed trocar, I created an upper midline opening and opened the abdomen superiorly to th e subxiphoid space under direct visualization. I then packed the omentum down out of the way and gra sped the stomach, pulled it down to the normal anatomic position slowly as I dissected the area. The hepatic artery was found to be in close proximity to this in addition to the common duct and hepatic ducts. I therefore bluntly dissected the stomach inferiorly off the liver surface until an adequate landing spot was placed. I then created a tongue of omentum as a vascularized pedicle using electro cautery, then flipped it up to ensure it was in a tension-free manner draping over the whole of the s tomach along the lesser curve near the pylorus. I then placed 2 interrupted 2-0 nylon sutures and a Mitchel patch was fashioned over the top of the punctate area of perforation. These were then secured and the Mitchel patch was found to be in good position at this time. I then copiously irrigated the abdomen in the subhepatic space and suctioned this until completely dry. A 10-Mauritian flat LYRIC drain w as then brought in through the right upper quadrant trocar site using a mixture and I placed this in the subhepatic space near the hepatic abscess as well as in the region of the Mitchel patch repair as the omentum was pulled up in this position. I then secured this to the skin using a 2-0 nylon suture with good closure of the trocar site as well. I then closed the left abdominal trocar site using a Matthieu-Nhan suture passer under direct visualization in the open approach with good approximation of the tissues. I then copiously irrigated the abdomen 1 last time and suctioned it until completel y dry. The repair was found to be in good anatomic position. An NG tube was then placed and guided under direct manipulation to the area of the perforation and placed just proximal to this. I then pl aced a piece of Seprafilm in the midline and closed the midline laparotomy incision using a #1 looped PDS in a running fashion with good approximation of the tissues. I then copiously irrigated the ski n 1 last time and closed all skin incisions with interrupted meghann after irrigating and suctioning this dry and a sterile dressing placed over the top. The patient tolerated the procedure well withou t evidence of complication and transferred to the PACU in good condition. All counts were correct at the end of the case. ONEL/CONNIE Voice ID: [id number] Report ID: [id number]
[2018-12-23] MEDS: VANCOMYCIN 1.5 GM in NA CHLORIDE 0.9% 500 ML IVPB SCH ×2 (04:03→16:00)
[2018-12-23 04:33] LABS: Absolute Lymphocytes (CBC) 1.3 K/uL (0.7-4.9); Absolute Monocytes 0.6 K/uL (0.1-1.3); Absolute Neutrophil 6.2 K/uL (1.8-8.0); Basophils % 0.2 % (0-1.3); Eosinophils % 0.5 % (0-4.4); Hematocrit 31.3 % (36.0-45.0); Lymphocytes % 16.2 % (15.3-44.8); MPV 9.1 fL (7.6-11.3); Monocytes % 7.6 % (3.3-12.3); RBC Red Blood Cell Count 3.53 M/uL (3.86-4.86)
[2018-12-23 04:45] LABS: BUN Blood Urea Nitrogen 8 mg/dL (7-18); Bicarbonate 21 mmol/L (21-32); Glucose Level 76 mg/dL (74-106); Magnesium 1.6 mg/dL (1.8-2.4); Phosphorus 1.6 mg/dL (2.5-4.9); Potassium 3.1 mmol/L (3.5-5.1); Sodium Level 143 mmol/L (136-145)
[2018-12-23] MEDS: INSULIN -REGULAR HUMAN 50 UNIT/0.5 ML ML SQ SCH ×4 (05:45→23:45)
[2018-12-23] MEDS: PIPER/TAZO/NS 3.375gm 3.375 GM/100 ML BAG IVPB SCH ×3 (06:33→21:31)
[2018-12-23] MEDS ORDERED: POTASSIUM PHOS IN 0.9 % NACL 15 MMOL/250 ML BAG IV ONE (07:30)
[2018-12-23] MEDS ORDERED: KCL 20 MEQ/100 mL IVPB 20 MEQ/100 ML BAG IV SCH (08:00)
[2018-12-23] MEDS: ENOXAPARIN 40 MG/0.4 ML SQ SCH (08:33)
[2018-12-23] MEDS: NA CHLORIDE 0.9% 1,000 ML IV SCH (09:00)
--- NOTE | 2018-12-23 10:26 | P.PN ---
Subjective Date of Service: 12/23/18 Chief Complaint: Fever and Chills Subjective: Improving (Patient feels some abdominal pain @ incision.) Physical Examination - Vital Signs Temperature: 97.5 F Blood Pressure: 131/64 Pulse: 95 Respirations: 16 Pulse Ox (%): 92 - Physical Exam General: Alert, In no apparent distress, Cooperative Respiratory: Diminished Gastrointestinal: Other (soft, mild appropriate TTP, ND, incision dressings clean and dry, LYRIC in place -serosanguanous) - Studies Microbiology Data (last 24 hrs): 12/21/18 15:30 Throat Culture & Sensitivity - Final NORMAL UPPER RESPIRATORY AUTUMN GROWN. Medications List Reviewed: Yes Assessment And Plan - Current Problems (Diagnosis) (1) Gastric perforation after ingestion of foreign material Current Visit: Yes Status: Acute Plan: Gen: continue current pain medication regime CVS: continue monitoring Pulm: RT consult, incentive spirometry Q15 min with goal of 15cc/kg GI - serial exams, continue NG tube to LIWS, keep LYRIC, will consider swallow exam in 1-2 days FEN: continue IV hydration, electrolyte replacement protocol, NPO ID: continue IV antibiotics Prophylaxis: Lovenox
--- NOTE | 2018-12-23 10:42 | RAD REPORT ---
EXAM DESCRIPTION: US - Pelvis Complete - 12/23/2018 10:09 am CLINICAL HISTORY: Pelvic pain COMPARISON: December 21, 2018 cat scan FINDINGS: Examination is limited as the bladder is not well distended and the patient declined endov aginal sonogram. The uterus measures 13 x 8 x 8 centimeters. The endometrium was not well imaged. It measures approxim ately 9 millimeters 2 centimeter fibroid within the uterine body. Echotexture of the uterus is inhomogeneous. Ovaries appear normal in size and echotexture. An adnexal mass is not seen. No significant free fluid IMPRESSION: Enlarged inhomogeneous uterus. 2 centimeter fibroid. Additional fibroids are suspected o n the CT scan. The evaluation of the uterus and endometrium is limited as described above. If further evaluation is required MRI could be obtained. Endometrial stripe measures approximately 9 millimeters. If the patient is premenopausal this is norm al. If postmenopausal abnormal
[2018-12-23] MEDS ORDERED: GLUCAGON 1 MG/VIAL IM PRN (10:44)
[2018-12-23] MEDS ORDERED: D50W 25 GM/50 ML SYRINGE IV PRN (10:44)
[2018-12-23] MEDS: D5.45NS W/KCL 20MEQ 20 MEQ/1,000 ML BAG IV SCH ×3 (11:00→23:32)
[2018-12-23] MEDS ORDERED: MAGNESIUM SULFATE 1 gm IVPB 1 GM/100 ML BAG IV ONE (12:00)
--- NOTE | 2018-12-23 12:21 | P.PN ---
Subjective Date of Service: 12/23/18 Primary Care Provider: Dr. Guajardo; Surgery-Dr. Hansen Chief Complaint: Fever and Chills Subjective: Other (Status post surgery. Pain present but controlled. No significant nausea or vomiting. No flatulence noted. No passage of stool.) Physical Examination - Vital Signs Temperature: 97.5 F Blood Pressure: 131/64 Pulse: 95 Respirations: 16 Pulse Ox (%): 92 - Physical Exam General: Alert, In no apparent distress, Oriented x3, Cooperative HEENT: Atraumatic Neck: Supple Respiratory: Clear to auscultation bilaterally, Normal air movement Cardiovascular: Normal pulses, Regular rate/rhythm Gastrointestinal: Hypoactive, No masses, No rebound, No guarding, Tenderness ( Tender postoperatively but stable) Integumentary: No tenderness/swelling, No erythema, No warmth, No cyanosis Neurological: Normal speech, Normal strength at 5/5 x4 extr, Normal tone, Normal affect - Studies Microbiology Data (last 24 hrs): 12/21/18 15:30 Throat Culture & Sensitivity - Final NORMAL UPPER RESPIRATORY AUTUMN GROWN. Medications List Reviewed: Yes Assessment & Plan Discharge Plan: Home Plan to discharge in: Greater than 2 days (Likely discharge in 3-5 days) Physician Review Additional Text: Impression: Sepsis with noted abdominal pain secondary to foreign body perforation of stomach with hepatic abscess status post laparoscopic exploration, conversion to open exploratory laparotomy, evacuation of hepatic abscess, Mitchel patch repair of gastric perforation after foreign body removal, and abdominal washout with primary abdominal closure and placement of LYRIC drain Diabetes mellitus type 2 Hypokalemia Hypomagnesia Postoperative anemia Obesity, BMI 30 Uterine fibroids Plan: Sepsis with noted abdominal pain secondary to foreign body perforation of stomach with hepatic abscess status post laparoscopic exploration, conversion to open exploratory laparotomy, evacuation of hepatic abscess, Mitchel patch repair of gastric perforation after foreign body removal, and abdominal washout with primary abdominal closure and placement of LYRIC drain: Patient doing well post operatively. Case discussed with patient and . Pain controlled. No significant nausea noted. NG tube in place. LYRIC tube in place. Continue with IV antibiotics and hydration. Patient remains NPO. Will discuss with surgery on plan of care. Encourage incentive spirometer. Encourage ambulation if possible. Will discuss with surgery on when to restart Lovenox-DVT prophylaxis. Continue with pain control and medication for nausea. Diabetes mellitus type 2: Will provide sliding scale. May need to adjust IV fluids to provide support. Hypokalemia: Will monitor and replace appropriately. Hypomagnesia: Will monitor and replace appropriately. Postoperative anemia: Overall stable. Will monitor closely. Obesity, BMI 30: Will continue to address lifestyle modification education. Uterine fibroids: This can be further assessed as an outpatient. Time Spent Managing Pts Care (In Minutes): 55
[2018-12-23] MEDS: KCL 20 MEQ/100 mL IVPB 20 MEQ/100 ML BAG IV SCH ×2 (21:32→23:32)
[2018-12-24] MEDS: MORPHINE 2 MG/ML SYR IV PRN ×6 (00:06→22:42)
[2018-12-24] MEDS: VANCOMYCIN 1.5 GM in NA CHLORIDE 0.9% 500 ML IVPB SCH ×2 (04:22→16:50)
[2018-12-24 04:24] LABS: Absolute Lymphocytes (CBC) 1.5 K/uL (0.7-4.9); Absolute Monocytes 0.5 K/uL (0.1-1.3); Absolute Neutrophil 5.4 K/uL (1.8-8.0); Basophils % 0.3 % (0-1.3); Eosinophils % 1.1 % (0-4.4); Hematocrit 33.2 % (36.0-45.0); Lymphocytes % 19.9 % (15.3-44.8); MPV 9.2 fL (7.6-11.3); Monocytes % 7.1 % (3.3-12.3); RBC Red Blood Cell Count 3.81 M/uL (3.86-4.86)
[2018-12-24 04:49] LABS: BUN Blood Urea Nitrogen 3 mg/dL (7-18); Bicarbonate 22 mmol/L (21-32); Glucose Level 160 mg/dL (74-106); Magnesium 1.7 mg/dL (1.8-2.4); Potassium 3.6 mmol/L (3.5-5.1); Sodium Level 139 mmol/L (136-145)
[2018-12-24 04:52] LABS: Phosphorus 0.8 mg/dL (2.5-4.9)
[2018-12-24] MEDS ORDERED: POTASSIUM PHOS 30 MM in NA CHLORIDE 0.9% 500 ML IV ONE (05:00)
[2018-12-24] MEDS: INSULIN -REGULAR HUMAN 50 UNIT/0.5 ML ML SQ SCH ×3 (05:45→17:45)
[2018-12-24] MEDS ORDERED: POTASSIUM PHOS IN 0.9 % NACL 15 MMOL/250 ML BAG IV ONE ×3 (05:49→18:00)
[2018-12-24] MEDS: METRONIDAZOLE 500mg IVPB 500 MG/100 ML BAG IV SCH ×3 (06:01→16:49)
[2018-12-24] MEDS: PIPER/TAZO/NS 3.375gm 3.375 GM/100 ML BAG IVPB SCH ×3 (08:00→22:32)
[2018-12-24] MEDS ORDERED: MAGNESIUM SULFATE 1 gm IVPB 1 GM/100 ML BAG IV ONE (09:00)
[2018-12-24] MEDS: ENOXAPARIN 40 MG/0.4 ML SQ SCH (09:00)
--- NOTE | 2018-12-24 09:06 | P.PN ---
Subjective Date of Service: 12/24/18 Primary Care Provider: Dr. Guajardo; Surgery-Dr. Hansen Chief Complaint: Fever and Chills Subjective: Other (Patient is slowly improving. Pain improved no bowel movement yet.) Physical Examination - Vital Signs Temperature: 98.4 F Blood Pressure: 142/67 Pulse: 92 Respirations: 18 Pulse Ox (%): 90 - Physical Exam General: Alert, In no apparent distress, Oriented x3, Cooperative HEENT: Atraumatic Neck: Supple Respiratory: Clear to auscultation bilaterally, Normal air movement Cardiovascular: Normal pulses, Regular rate/rhythm Gastrointestinal: Hypoactive, No rebound, No guarding, Tenderness (Mild tenderness to the abdomen.) Musculoskeletal: No erythema, No tenderness, No warmth Integumentary: No erythema, No warmth, No cyanosis Neurological: Normal speech, Normal strength at 5/5 x4 extr, Normal tone, Normal affect - Studies Microbiology Data (last 24 hrs): 12/21/18 15:30 Throat Culture & Sensitivity - Final NORMAL UPPER RESPIRATORY AUTUMN GROWN. Medications List Reviewed: Yes Assessment & Plan Discharge Plan: Home Plan to discharge in: Greater than 2 days Physician Review Additional Text: Impression: Sepsis with noted abdominal pain secondary to foreign body perforation of stomach with hepatic abscess status post laparoscopic exploration, conversion to open exploratory laparotomy, evacuation of hepatic abscess, Mitchel patch repair of gastric perforation after foreign body removal, and abdominal washout with primary abdominal closure and placement of LYRIC drain Diabetes mellitus type 2 Hypokalemia Hypomagnesia Postoperative anemia Obesity, BMI 30 Uterine fibroids Plan: Sepsis with noted abdominal pain secondary to foreign body perforation of stomach with hepatic abscess status post laparoscopic exploration, conversion to open exploratory laparotomy, evacuation of hepatic abscess, Mitchel patch repair of gastric perforation after foreign body removal, and abdominal washout with primary abdominal closure and placement of LYRIC drain: Patient remains stable postoperatively. Continue with IV fluids and antibiotic therapy. Patient remains NPO. Case discussed with surgery yesterday. Patient will likely have swallow evaluation tomorrow. If swallow evaluation unremarkable then the patient may be able to start clear liquids. Likely plan of care will be to possibly restart fluids and advance to full liquid diet in the next 3 days. If stable patient may be able to go home as early as this weekend on a full liquid diet and transition to GI soft as an outpatient. LYRIC tube remains in place. Encourage incentive spirometer. Encourage ambulation. Patient on DVT prophylaxis-Lovenox. Continue to provide medication for pain and nausea. Will monitor closely. Await further recommendations from surgery. Diabetes mellitus type 2: Continue with sliding scale May need to adjust IV fluids to provide support. Hypokalemia: Will monitor and replace appropriately. Hypomagnesia: Will monitor and replace appropriately. Postoperative anemia: Overall stable. Will monitor closely. Obesity, BMI 30: Will continue to address lifestyle modification education. Uterine fibroids: This can be further assessed as an outpatient. Time Spent Managing Pts Care (In Minutes): 55
[2018-12-24] MEDS: D5.45NS W/KCL 20MEQ 20 MEQ/1,000 ML BAG IV SCH ×2 (11:27→15:32)
--- NOTE | 2018-12-24 11:39 | P.PN ---
Subjective Date of Service: 12/24/18 Primary Care Provider: Dr. Guajardo; Surgery-Dr. Hansen Chief Complaint: Fever and Chills Subjective: Improving (Pain improving) Physical Examination - Vital Signs Temperature: 98.4 F Blood Pressure: 142/67 Pulse: 92 Respirations: 18 Pulse Ox (%): 90 - Physical Exam General: Alert, In no apparent distress, Cooperative Gastrointestinal: Other (soft, mild appropriate TTP, LYRIC serosanguanous, non- cloudy, incisions clean, meghann in place) - Studies Microbiology Data (last 24 hrs): 12/21/18 15:30 Throat Culture & Sensitivity - Final NORMAL UPPER RESPIRATORY AUTUMN GROWN. Medications List Reviewed: Yes Assessment And Plan - Current Problems (Diagnosis) (1) Gastric perforation after ingestion of foreign material Current Visit: Yes Status: Acute Plan: Gen: continue current pain medication regime CVS: continue monitoring Pulm: RT consult, incentive spirometry Q15 min with goal of 15cc/kg GI - serial exams, continue NG tube to LIWS, keep LYRIC, will order swallow today FEN: continue IV hydration, electrolyte replacement protocol, NPO ID: continue IV antibiotics Prophylaxis: Lovenox Physician Review Additional Text: Impression: Sepsis with noted abdominal pain secondary to foreign body perforation of stomach with hepatic abscess status post laparoscopic exploration, conversion to open exploratory laparotomy, evacuation of hepatic abscess, Mitchel patch repair of gastric perforation after foreign body removal, and abdominal washout with primary abdominal closure and placement of LYRIC drain Diabetes mellitus type 2 Hypokalemia Hypomagnesia Postoperative anemia Obesity, BMI 30 Uterine fibroids Plan: Sepsis with noted abdominal pain secondary to foreign body perforation of stomach with hepatic abscess status post laparoscopic exploration, conversion to open exploratory laparotomy, evacuation of hepatic abscess, Mitchel patch repair of gastric perforation after foreign body removal, and abdominal washout with primary abdominal closure and placement of LYRIC drain: Patient remains stable postoperatively. Continue with IV fluids and antibiotic therapy. Patient remains NPO. Case discussed with surgery yesterday. Patient will likely have swallow evaluation tomorrow. If swallow evaluation unremarkable then the patient may be able to start clear liquids. Likely plan of care will be to possibly restart fluids and advance to full liquid diet in the next 3 days. If stable patient may be able to go home as early as this weekend on a full liquid diet and transition to GI soft as an outpatient. LYRIC tube remains in place. Encourage incentive spirometer. Encourage ambulation. Patient on DVT prophylaxis-Lovenox. Continue to provide medication for pain and nausea. Will monitor closely. Await further recommendations from surgery. Diabetes mellitus type 2: Continue with sliding scale May need to adjust IV fluids to provide support. Hypokalemia: Will monitor and replace appropriately. Hypomagnesia: Will monitor and replace appropriately. Postoperative anemia: Overall stable. Will monitor closely. Obesity, BMI 30: Will continue to address lifestyle modification education. Uterine fibroids: This can be further assessed as an outpatient.
--- NOTE | 2018-12-24 13:51 | RAD REPORT ---
EXAM DESCRIPTION: RAD - Upper GI Series Wo KUB - 12/24/2018 1:33 pm CLINICAL HISTORY: Gastric perforation status post surgical repair COMPARISON: CT imaging December 21 FINDINGS: Limited upper GI examination was performed. The patient is status post surgical repair of a perforation of the stomach. Preliminary imaging shows NG tube in place. Skin meghann are present along the midline. Drain tube is present in the right upper quadrant. Gastroview contrast material was injected through the NG tube after the tube was cleared. Gastric muc osal fold pattern in gastric size are normal. No delay in transit of contrast into the duodenum. Mult iple images were obtained. No extravasation of contrast was confirmed. Fluoro time was 1 minutes 43 seconds. There were 12 fluoroscopic spot images obtained. IMPRESSION: No extravasation of contrast. No suspicious stomach or duodenum abnormality.
[2018-12-24 15:31] LABS: Phosphorus 1.2 mg/dL (2.5-4.9)
[2018-12-25] MEDS ORDERED: VANCOMYCIN 1.75 GM in NA CHLORIDE 0.9% 500 ML IVPB SCH (04:00)
[2018-12-25] MEDS: MORPHINE 2 MG/ML SYR IV PRN ×2 (04:25→09:51)
[2018-12-25] MEDS: D5.45NS W/KCL 20MEQ 20 MEQ/1,000 ML BAG IV SCH ×3 (04:25→21:25)
[2018-12-25 06:19] LABS: Absolute Lymphocytes (CBC) 1.7 K/uL (0.7-4.9); Absolute Monocytes 0.6 K/uL (0.1-1.3); Absolute Neutrophil 3.4 K/uL (1.8-8.0); Basophils % 0.6 % (0-1.3); Hematocrit 32.2 % (36.0-45.0); Lymphocytes % 28.7 % (15.3-44.8); MPV 8.7 fL (7.6-11.3); Monocytes % 9.8 % (3.3-12.3); RBC Red Blood Cell Count 3.64 M/uL (3.86-4.86)
[2018-12-25 06:39] LABS: BUN Blood Urea Nitrogen 4 mg/dL (7-18); Bicarbonate 25 mmol/L (21-32); Glucose Level 139 mg/dL (74-106); Magnesium 1.8 mg/dL (1.8-2.4); Phosphorus 2.2 mg/dL (2.5-4.9); Potassium 3.4 mmol/L (3.5-5.1); Sodium Level 141 mmol/L (136-145)
[2018-12-25] MEDS ORDERED: MAGNESIUM SULFATE 1 gm IVPB 1 GM/100 ML BAG IV ONE (06:56)
[2018-12-25] MEDS ORDERED: POTASSIUM 25 MEQ EFFERV TAB PO ONE (06:59)
[2018-12-25] MEDS: POTASS/SODIUM PHOSPHATE 1 PKT POWD.PACK PO SCH ×3 (07:00→09:00)
[2018-12-25] MEDS: PIPER/TAZO/NS 3.375gm 3.375 GM/100 ML BAG IVPB SCH (07:00)
[2018-12-25] MEDS: INSULIN -REGULAR HUMAN 50 UNIT/0.5 ML ML SQ SCH ×4 (07:30→21:00)
[2018-12-25] MEDS: METRONIDAZOLE 500mg IVPB 500 MG/100 ML BAG IV SCH ×2 (07:34)
[2018-12-25] MEDS: ENOXAPARIN 40 MG/0.4 ML SQ SCH (08:15)
--- NOTE | 2018-12-25 09:28 | P.PN ---
Subjective Date of Service: 12/25/18 Primary Care Provider: Dr. Guajardo; Surgery-Dr. Hansen Chief Complaint: Fever and Chills Subjective: Improving (Patient doing well at this time. Patient now on clear liquid. NG tube removed yesterday. Pain improved. Patient reports some diarrhea and belching.) Physical Examination - Vital Signs Temperature: 97.2 F Blood Pressure: 146/72 Pulse: 72 Respirations: 16 Pulse Ox (%): 98 - Physical Exam General: Alert, In no apparent distress, Oriented x3, Cooperative HEENT: Atraumatic Neck: Supple Respiratory: Clear to auscultation bilaterally, Normal air movement Cardiovascular: Normal pulses, Regular rate/rhythm Gastrointestinal: Hypoactive, Non-distended, Other (Postsurgical changes noted) Neurological: Normal speech, Normal strength at 5/5 x4 extr, Normal tone, Normal affect - Studies Medications List Reviewed: Yes Assessment & Plan Discharge Plan: Home Plan to discharge in: 48 Hours Physician Review Additional Text: Impression: Sepsis with noted abdominal pain secondary to foreign body perforation of stomach with hepatic abscess status post laparoscopic exploration, conversion to open exploratory laparotomy, evacuation of hepatic abscess, Mitchel patch repair of gastric perforation after foreign body removal, and abdominal washout with primary abdominal closure and placement of LYRIC drain, postop day 3 Diabetes mellitus type 2 Hypokalemia Hypomagnesia Postoperative anemia Obesity, BMI 30 Uterine fibroids Plan: Sepsis with noted abdominal pain secondary to foreign body perforation of stomach with hepatic abscess status post laparoscopic exploration, conversion to open exploratory laparotomy, evacuation of hepatic abscess, Mitchel patch repair of gastric perforation after foreign body removal, and abdominal washout with primary abdominal closure and placement of LYRIC drain, postop day 3: Patient remains stable postoperatively. NG tube removed yesterday and started clear liquids. Patient is tolerating current diet. Continue with IV fluids and antibiotic therapy. Will further discuss with surgery. Surgery plans to advance diet to full liquid if over the next couple of days. Patient will likely go home on full liquid diet then transition to GI soft as an outpatient. Encourage ambulation and incentive spirometer. Continue to provide medication for pain and nausea. Continue DVT prophylaxis-Lovenox. Likely discharge as early as tomorrow or Dk. Diabetes mellitus type 2: Continue with sliding scale. May need to adjust IV fluids to provide support. Hypokalemia: Will monitor and replace appropriately. Hypomagnesia: Will monitor and replace appropriately. Postoperative anemia: Overall stable. Will monitor closely. Obesity, BMI 30: Will continue to address lifestyle modification education. Uterine fibroids: This can be further assessed as an outpatient. Time Spent Managing Pts Care (In Minutes): 55
--- NOTE | 2018-12-25 10:50 | P.PN ---
Subjective Date of Service: 12/25/18 Primary Care Provider: Dr. Guajardo; Surgery-Dr. Hansen Chief Complaint: Fever and Chills Subjective: Improving (Swallow study, no leak, tolerated clears well, + loose BM ) Physical Examination - Vital Signs Temperature: 97.2 F Blood Pressure: 146/72 Pulse: 72 Respirations: 16 Pulse Ox (%): 98 - Physical Exam General: Alert, In no apparent distress, Cooperative Gastrointestinal: Other (soft, mild appropriate TTP, ND, incisions clean, LYRIC serosang) - Studies Microbiology Data (last 24 hrs): 12/21/18 15:45 Blood - Blood Aerobic Blood Culture - Final Streptococcus Anginosus [facility] 12/21/18 15:45 Blood - Blood Gram Stain - Final 12/21/18 15:45 Blood - Blood Anaerobic Blood Culture - Final Streptococcus Anginosus [facility] 12/21/18 15:45 Blood - Blood Gram Stain - Final 12/21/18 15:30 Blood - Blood Aerobic Blood Culture - Final Streptococcus Anginosus [facility] 12/21/18 15:30 Blood - Blood Gram Stain - Final 12/21/18 15:30 Blood - Blood Anaerobic Blood Culture - Final Streptococcus Anginosus [facility] 12/21/18 15:30 Blood - Blood Gram Stain - Final Medications List Reviewed: Yes Assessment And Plan - Current Problems (Diagnosis) (1) Gastric perforation after ingestion of foreign material Current Visit: Yes Status: Acute Plan: Gen: continue current pain medication regime with norco, DC morphine CVS: continue monitoring Pulm: RT consult, incentive spirometry Q15 min with goal of 15cc/kg GI - serial exams, continue keep LYRIC, swallow normal FEN: continue IV hydration, electrolyte replacement protocol, Full liquids ID: continue IV antibiotics Prophylaxis: Lovenox Possible DC in AM Physician Review Additional Text: Impression: Sepsis with noted abdominal pain secondary to foreign body perforation of stomach with hepatic abscess status post laparoscopic exploration, conversion to open exploratory laparotomy, evacuation of hepatic abscess, Mitchel patch repair of gastric perforation after foreign body removal, and abdominal washout with primary abdominal closure and placement of LYRIC drain, postop day 3 Diabetes mellitus type 2 Hypokalemia Hypomagnesia Postoperative anemia Obesity, BMI 30 Uterine fibroids Plan: Sepsis with noted abdominal pain secondary to foreign body perforation of stomach with hepatic abscess status post laparoscopic exploration, conversion to open exploratory laparotomy, evacuation of hepatic abscess, Mitchel patch repair of gastric perforation after foreign body removal, and abdominal washout with primary abdominal closure and placement of LYRIC drain, postop day 3: Patient remains stable postoperatively. NG tube removed yesterday and started clear liquids. Patient is tolerating current diet. Continue with IV fluids and antibiotic therapy. Will further discuss with surgery. Surgery plans to advance diet to full liquid if over the next couple of days. Patient will likely go home on full liquid diet then transition to GI soft as an outpatient. Encourage ambulation and incentive spirometer. Continue to provide medication for pain and nausea. Continue DVT prophylaxis-Lovenox. Likely discharge as early as tomorrow or Sunday. Diabetes mellitus type 2: Continue with sliding scale. May need to adjust IV fluids to provide support. Hypokalemia: Will monitor and replace appropriately. Hypomagnesia: Will monitor and replace appropriately. Postoperative anemia: Overall stable. Will monitor closely. Obesity, BMI 30: Will continue to address lifestyle modification education. Uterine fibroids: This can be further assessed as an outpatient.
[2018-12-25] MEDS: HYDROCODONE/APAP 5/325 MG TAB PO PRN ×2 (14:52→21:24)
[2018-12-25] MEDS ORDERED: POTASSIUM CL SA 10 MEQ TAB PO ONE (16:00)
[2018-12-26 04:47] LABS: Absolute Lymphocytes (CBC) 2.8 K/uL (0.7-4.9); Absolute Monocytes 0.7 K/uL (0.1-1.3); Absolute Neutrophil 2.8 K/uL (1.8-8.0); Basophils % 0.2 % (0-1.3); Eosinophils % 8.5 % (0-4.4); Lymphocytes % 40.1 % (15.3-44.8); MPV 8.7 fL (7.6-11.3); Monocytes % 10.6 % (3.3-12.3); RBC Red Blood Cell Count 4.24 M/uL (3.86-4.86)
[2018-12-26 05:01] LABS: BUN Blood Urea Nitrogen 2 mg/dL (7-18); Bicarbonate 25 mmol/L (21-32); Glucose Level 125 mg/dL (74-106); Magnesium 1.9 mg/dL (1.8-2.4); Phosphorus 3.5 mg/dL (2.5-4.9); Sodium Level 141 mmol/L (136-145)
[2018-12-26] MEDS: INSULIN -REGULAR HUMAN 50 UNIT/0.5 ML ML SQ SCH ×3 (07:30→16:23)
--- NOTE | 2018-12-26 08:27 | P.PN ---
Subjective Date of Service: 12/26/18 Primary Care Provider: Dr. Guajardo; Surgery-Dr. Hansen Chief Complaint: Fever and Chills Subjective: Other (Patient doing well. Pain well controlled. Patient tolerating full liquid diet) Physical Examination - Vital Signs Temperature: 97.4 F Blood Pressure: 153/65 Pulse: 68 Respirations: 18 Pulse Ox (%): 98 - Physical Exam General: Alert, In no apparent distress, Oriented x3, Cooperative HEENT: Atraumatic Neck: Supple Respiratory: Clear to auscultation bilaterally, Normal air movement Cardiovascular: Normal pulses, Regular rate/rhythm Gastrointestinal: Normal bowel sounds, Soft and benign, Non-distended, No masses , No rebound, No guarding, Tenderness (Pain improved) Musculoskeletal: No erythema, No tenderness, No warmth Integumentary: No erythema, No warmth, No cyanosis Neurological: Normal speech, Normal strength at 5/5 x4 extr, Normal tone, Normal affect - Studies Microbiology Data (last 24 hrs): 12/21/18 15:45 Blood - Blood Aerobic Blood Culture - Final Streptococcus Anginosus [facility] 12/21/18 15:45 Blood - Blood Gram Stain - Final 12/21/18 15:45 Blood - Blood Anaerobic Blood Culture - Final Streptococcus Anginosus [facility] 12/21/18 15:45 Blood - Blood Gram Stain - Final 12/21/18 15:30 Blood - Blood Aerobic Blood Culture - Final Streptococcus Anginosus [facility] 12/21/18 15:30 Blood - Blood Gram Stain - Final 12/21/18 15:30 Blood - Blood Anaerobic Blood Culture - Final Streptococcus Anginosus [facility] 12/21/18 15:30 Blood - Blood Gram Stain - Final Medications List Reviewed: Yes Assessment & Plan Discharge Plan: Home Plan to discharge in: 24 Hours Physician Review Additional Text: Impression: Sepsis with noted abdominal pain secondary to foreign body perforation of stomach with hepatic abscess status post laparoscopic exploration, conversion to open exploratory laparotomy, evacuation of hepatic abscess, Mitchel patch repair of gastric perforation after foreign body removal, and abdominal washout with primary abdominal closure and placement of LYRIC drain, postop day 4 Diabetes mellitus type 2 Hypertension Hypokalemia Hypomagnesia Postoperative anemia Obesity, BMI 30 Uterine fibroids Plan: Sepsis with noted abdominal pain secondary to foreign body perforation of stomach with hepatic abscess status post laparoscopic exploration, conversion to open exploratory laparotomy, evacuation of hepatic abscess, Mitchel patch repair of gastric perforation after foreign body removal, and abdominal washout with primary abdominal closure and placement of LYRIC drain, postop day 4: Patient has done well post operatively. Patient tolerating full liquid diet. Pain well controlled. LYRIC tube still in place. Patient ambulating well. Antibiotics adjusted by surgery yesterday. Case discussed with surgery yesterday. Possible discharge as early as today. Will discuss further with surgery for plan of care. Diabetes mellitus type 2: Continue with sliding scale. Plantar restart home medication at discharge Hypertension: Restart home medication lisinopril. Hypokalemia: Will monitor and replace appropriately. Hypomagnesia: Will monitor and replace appropriately. Postoperative anemia: Overall stable. Will monitor closely. Obesity, BMI 30: Will continue to address lifestyle modification education. Uterine fibroids: This can be further assessed as an outpatient. Time Spent Managing Pts Care (In Minutes): 55
[2018-12-26] MEDS ORDERED: LISINOPRIL 5 MG TAB PO SCH (09:00)
[2018-12-26] MEDS: HYDROCODONE/APAP 5/325 MG TAB PO PRN ×2 (09:05→17:47)
[2018-12-26] MEDS: ENOXAPARIN 40 MG/0.4 ML SQ SCH (09:07)
[2018-12-26] MEDS: D5.45NS W/KCL 20MEQ 20 MEQ/1,000 ML BAG IV SCH (09:11)
[2018-12-26 11:30] LABS: HBsAG Nonreactive (Nonreactive); Hepatitis A IgM Antibody Nonreactive
--- NOTE | 2018-12-26 13:08 | P.DS ---
Admission Date: 12/21/18 Discharge Date: 12/26/18 Primary Care Provider: Dr. Guajardo; Surgery-Dr. Hansen Disposition: ROUTINE DISCHARGE Discharge Condition: GOOD Reason for Admission: Fever and Chills Consultations: Surgery-Dr. Hansen Procedures: CT Scan: FINDINGS: The lung bases are clear. Diffuse fatty liver is seen with 16 mm benign-appearing cyst in the caudate lobe. No aggressive liver lesion or biliary dilatation. The spleen, pancreas, adrenal glands and kidneys are within normal limits. No bowel obstruction, free air, free fluid or abscess. The appendix is normal. No evidence of significant lymphadenopathy. No suspicious bony findings. The uterus appears enlarged with several fibroid suspected. IMPRESSION: No acute intra-abdominal or pelvic finding. Diffuse fatty liver. US: COMPARISON: December 21, 2018 cat scan FINDINGS: Examination is limited as the bladder is not well distended and the patient declined endovaginal sonogram. The uterus measures 13 x 8 x 8 centimeters. The endometrium was not well imaged. It measures approximately 9 millimeters 2 centimeter fibroid within the uterine body. Echotexture of the uterus is inhomogeneous. Ovaries appear normal in size and echotexture. An adnexal mass is not seen. No significant free fluid IMPRESSION: Enlarged inhomogeneous uterus. 2 centimeter fibroid. Additional fibroids are suspected on the CT scan. The evaluation of the uterus and endometrium is limited as described above. If further evaluation is required MRI could be obtained. Endometrial stripe measures approximately 9 millimeters. If the patient is premenopausal this is normal. If postmenopausal abnormal Surgery: Date of Procedure: 12/22/2018 Surgeon: John Hansen MD Preoperative Diagnosis: Cholecystitis/biliary dyskinesia. Postoperative Diagnosis: Foreign body perforation of stomach with hepatic abscess. Procedures: 1. Laparoscopic exploration. 2. Converted to open exploratory laparotomy. 3. Evacuation of hepatic abscess. 4. Mitchel patch repair of gastric perforation after foreign body removal. 5. Abdominal washout. 6. Primary abdominal closure and placement of right hepatic fossa LYRIC 10- Israeli drain. Anesthesia: General endotracheal plus local. Estimated Blood Loss: 10 cc. Specimen: Foreign body, appeared to be toothpick. Findings: As above. Foreign body perforation to the lesser curve of stomach with hepatic abscess. Complications: None. Drains: 1. Nasogastric. 2. A 10-Israeli flat LYRIC drain. Implants: Seprafilm. Upper GI: COMPARISON: CT imaging December 21 FINDINGS: Limited upper GI examination was performed. The patient is status post surgical repair of a perforation of the stomach. Preliminary imaging shows NG tube in place. Skin meghann are present along the midline. Drain tube is present in the right upper quadrant. Gastroview contrast material was injected through the NG tube after the tube was cleared. Gastric mucosal fold pattern in gastric size are normal. No delay in transit of contrast into the duodenum. Multiple images were obtained. No extravasation of contrast was confirmed. Fluoro time was 1 minutes 43 seconds. There were 12 fluoroscopic spot images obtained. IMPRESSION: No extravasation of contrast. No suspicious stomach or duodenum abnormality. Medical Problem List: Sepsis with noted abdominal pain secondary to foreign body perforation of stomach with hepatic abscess status post laparoscopic exploration, conversion to open exploratory laparotomy, evacuation of hepatic abscess, Mitchel patch repair of gastric perforation after foreign body removal, and abdominal washout with primary abdominal closure and placement of LYRIC drain, postop day 4 Diabetes mellitus type 2 Hypertension Hypokalemia Hypomagnesia Postoperative anemia Obesity, BMI 30 Uterine fibroids Brief History of Present Illness: 48-year-old female presented to the emergency room with abdominal pain mainly to the epigastric region and globally. Patient had seen surgery as an outpatient for the abdominal pain. Patient had ultrasound as an outpatient which showed normal gallbladder. HIDA scan was performed as an outpatient showing biliary dyskinesia. She continued to have abdominal pain, fever, chills. Patient was evaluated in the emergency room. Patient was admitted for further evaluation and treatment. Surgery consulted. Hospital Course: Patient presented with abdominal pain. This had been worked up as an outpatient. Initial diagnosis of biliary dyskinesia was suspected. Patient presented with chills, fever, continued abdominal pain. Patient was septic. Patient was started on IV antibiotic therapy and further evaluated by surgery who had seen the patient as an outpatient. Surgical intervention was required. Patient had laparoscopic exploration. Foreign body and perforation of the stomach with hepatic abscess was identified. Surgery converted to open exploratory laparotomy with evacuation of hepatic abscess, Mitchel patch repair of gastric perforation after foreign body removal, abdominal washout and primary abdominal closure and placement of right hepatic LYRIC drain. Patient tolerated the procedure well. Follow up GI series was done which was unremarkable. After that time patient was transition to oral intake. Patient tolerated clear liquids. This was advanced to a soft diet which she tolerated. Abdominal pain improved. At discharge she is without any significant abdominal pain, nausea, vomiting. She is tolerating her diet. At discharge LYRIC tube was removed by surgery. Patient will be discharged home. Surgery plans to make arrangements for the patient to follow up with another surgeon as he will be out of town for follow up in 1 week to have meghann removed. Patient will follow up with surgery in 3 weeks to follow up this hospitalization. No need for antibiotics at discharge. Patient will be provided tramadol 50 mg 3 times a day as needed for pain. No heavy lifting, pushing or pulling. Post operative instructions will be provided. Patient may shower upright. Patient with diabetes type 2. This remained stable. Patient may continue with her medication-Jardiance daily. Recommend to follow up with her PCP to further monitor and address. Patient with hypertension. This remained stable. Patient will continue with her medication lisinopril. Recommend to follow up with her PCP to further monitor. In her workup patient found to have uterine fibroids. This can be further addressed as an outpatient by gynecology. Vital Signs/Physical Exam: Temp Pulse Resp BP Pulse Ox 97.5 F 74 18 137/67 96 12/26/18 12:00 12/26/18 12:00 12/26/18 12:00 12/26/18 12:00 12/26/18 12:00 General: Alert, In no apparent distress, Oriented x3, Cooperative HEENT: Atraumatic Neck: Supple Respiratory: Clear to auscultation bilaterally, Normal air movement Cardiovascular: Normal pulses, Regular rate/rhythm Gastrointestinal: Normal bowel sounds, Soft and benign, Non-distended, No masses , No rebound, No guarding, Tenderness (Improved tenderness) Musculoskeletal: No erythema, No tenderness, No warmth Integumentary: No tenderness/swelling, No erythema, No warmth, No cyanosis Neurological: Normal speech, Normal strength at 5/5 x4 extr, Normal tone, Normal affect Lymphatics: No axilla or inguinal lymphadenopathy Laboratory Data at Discharge: WBC 6.9 K/uL (4.3-10.9) D 12/26/18 03:46 Hgb 12.8 g/dL (12.0-15.0) 12/26/18 03:46 Hct 37.0 % (36.0-45.0) 12/26/18 03:46 Plt Count 273 K/uL (152-406) D 12/26/18 03:46 PT 12.8 SECONDS (9.5-12.5) H 12/21/18 16:04 INR 1.09 12/21/18 16:04 APTT 28.1 SECONDS (24.3-36.9) 12/21/18 16:04 Sodium 141 mmol/L (136-145) 12/26/18 03:46 Potassium 4.0 mmol/L (3.5-5.1) 12/26/18 03:46 BUN 2 mg/dL (7-18) L 12/26/18 03:46 Creatinine 0.57 mg/dL (0.55-1.3) 12/26/18 03:46 Glucose 125 mg/dL (74-106) H 12/26/18 03:46 Phosphorus 3.5 mg/dL (2.5-4.9) D 12/26/18 03:46 Magnesium 1.9 mg/dL (1.8-2.4) 12/26/18 03:46 Total Bilirubin 0.8 mg/dL (0.2-1.0) 12/22/18 05:34 AST 18 U/L (15-37) 12/22/18 05:34 ALT 23 U/L (12-78) 12/22/18 05:34 Alkaline Phosphatase 68 U/L (45-117) 12/22/18 05:34 Lipase 75 U/L (73-393) 12/21/18 15:30 Home Medications: Empagliflozin [Jardiance] 25 mg PO DAILY 10/16/16 Lisinopril 5 mg PO DAILY 07/08/18 Tramadol HCl [Ultram] 50 mg PO TID PRN #30 tablet 12/26/18 New Medications: Tramadol HCl [Ultram] 50 mg PO TID PRN #30 tablet PRN Reason: Pain Scale 2-4 (Mild) Patient Discharge Instructions: 1. Recommend a follow up with her PCP in 1 week to follow up this hospitalization. 2. Patient presented with abdominal pain. This had been worked up as an outpatient. Initial diagnosis of biliary dyskinesia was suspected. Patient presented with chills, fever, continued abdominal pain. Patient was septic. Patient was started on IV antibiotic therapy and further evaluated by surgery who had seen the patient as an outpatient. Surgical intervention was required. Patient had laparoscopic exploration. Foreign body and perforation of the stomach with hepatic abscess was identified. Surgery converted to open exploratory laparotomy with evacuation of hepatic abscess, Mitchel patch repair of gastric perforation after foreign body removal, abdominal washout and primary abdominal closure and placement of right hepatic LYRIC drain. Patient tolerated the procedure well. Follow up GI series was done which was unremarkable. After that time patient was transition to oral intake. At discharge she is without any significant abdominal pain, nausea, vomiting. She is tolerating her diet. At discharge LYRIC tube was removed by surgery. Patient will be discharged home. Surgery plans to make arrangements for the patient to follow up with another surgeon as he will be out of town for follow up in 1 week to have meghann removed. Patient will follow up with surgery in 3 weeks to follow up this hospitalization. No need for antibiotics at discharge. Patient will be provided tramadol 50 mg 3 times a day as needed for pain. No heavy lifting, pushing or pulling. Post operative instructions will be provided. Patient may shower upright. 3. Patient with diabetes type 2. This remained stable. Patient may continue with her medication-Jardiance daily. Recommend to follow up with her PCP to further monitor and address. 4. Patient with hypertension. This remained stable. Patient will continue with her medication lisinopril. Recommend to follow up with her PCP to further monitor. 5. In her workup patient found to have uterine fibroids. This can be further addressed as an outpatient by gynecology. Diet: GI soft diet Activity: No lifting more than 10 lbs Time spent managing pt's care (in minutes): 55
== END 2018-12-26 21:00 | disposition home or self-care (01) | DRG 853 ==
LOC: ER 14:36 → ERHOLD 19:01 → 4TH 19:56
PROVIDERS: ADMIT Family Medicine; ATTEND Family Medicine
PROC: 0FC04ZZ Extirpation of Matter from Liver, Percutaneous Endoscopic Approach (ICD-10-PCS; 2018-12-22)
PROC: 0DU707Z Supplement Stomach, Pylorus with Autologous Tissue Substitute, Open Approach (ICD-10-PCS; principal; 2018-12-22 12:00)
DX: A41.9 Sepsis, unspecified organism (principal); K75.0 Abscess of liver; S36.39XA Other injury of stomach, initial encounter; T18.2XXA Foreign body in stomach, initial encounter; E11.9 Type 2 diabetes mellitus without complications; E78.5 Hyperlipidemia, unspecified; E87.6 Hypokalemia; E83.42 Hypomagnesemia; D64.9 Anemia, unspecified; E66.9 Obesity, unspecified; Z68.30 Body mass index [BMI] 30.0-30.9, adult; D25.9 Leiomyoma of uterus, unspecified
CPT/HCPCS: 36415; 71045; 74177; 74240; 76856; 80048; 80053; 80074; 80076; 80202; 81003; 81015; 81025; 82550; 82553; 82962; 83605; 83690; 83735; 84100; 84132; 84145; 84484; 85025; 85610; 85730; 86850; 86900; 86901; 87040; 87070; 87077; 87081; 87186; 87205; 87493; 87804; 88300; 93005; 96365; 96366; 97110; 97116; 97163; 97530; 99285; J0330; J0696; J1170; J1650; J2250; J2270; J2405; J2543; J2704; J2710; J3010; J3475; J7030; Q9966

== ENCOUNTER 2019-05-06 05:25 | Emergency (ER) | payer OTHER ==
[2019-05-06 06:30] LABS: Absolute Lymphocytes (CBC) 2.6 K/uL (0.7-4.9); Basophils % 0.4 % (0-1.3); Hematocrit 40.8 % (36.0-45.0); Lymphocytes % 31.8 % (15.3-44.8); MPV 8.7 fL (7.6-11.3); RBC Red Blood Cell Count 4.74 M/uL (3.86-4.86)
[2019-05-06 06:34] LABS: Protime INR 0.96
[2019-05-06 06:36] LABS: Potassium 3.6 mmol/L (3.5-5.1)
[2019-05-06] MEDS ORDERED: METHYLPREDNISOLONE 125 MG INJ ONE (06:51)
--- NOTE | 2019-05-06 07:14 | RAD REPORT ---
EXAM DESCRIPTION: RAD - Chest Single View - 05/06/2019 6:43 am CLINICAL HISTORY: MALAISE Chest pain. COMPARISON: Chest Single View dated 12/21/2018; Chest Single View dated 07/08/2018; Chest Pa And Lat (2 Views) dated 12/12/2017; CHEST PA AND LAT 2 VIEW dated 03/26/2012 FINDINGS: Portable technique limits examination quality. The lungs are emphysematous but grossly clear. The heart is normal in size. No displaced fractures. IMPRESSION: Mild COPD.
[2019-05-06] MEDS ORDERED: KETOROLAC 30 MG/ML INJ ONE (07:59)
--- NOTE | 2019-05-06 08:29 | EDPHYS ---
Physician Documentation [facility] Name: Amarilys Posey Age: 48 yrs Sex: Female : 1970 Arrival Date: 05/06/2019 Time: 05:29 Bed 18 Private MD: Michaela Guajardo ED Physician Shahriar Tejeda HPI: 05/06 06:19 This 48 yrs old Female presents to ER via Ambulatory with complaints of S/S of pm1 Possible Stroke. 06:19 The patient's problem is reported as Inability to close left eyelid. Onset: The pm1 symptoms/episode began/occurred this morning, at 04:30, patient without left eyelid issue last night. Context: symptoms became apparent upon waking, on May 06, 2019, at 04:30. The symptoms are alleviated by nothing. The symptoms are aggravated by nothing. Associated signs and symptoms: Pertinent positives: Headache and tingling to lips, Pertinent negatives: abdominal pain, blurred vision, chest pain, diarrhea, nausea, numbness, shortness of breath, vomiting. Severity of symptoms: in the emergency department the symptoms are unchanged. Patient's baseline: Neuro: alert and fully oriented, Motor: no deficits, Ambulation: walks without assistance, Speech: normal. The patient has not experienced similar symptoms in the past. The patient has not recently seen a physician, the patient's primary care provider is Dr. Guajardo. Patient woke up this AM to go to the restroom and noticed that she is unable to close her left eyelid tightly. Reports tingling sensation to her lips. No extremity weakness. No difficulty with walking. Patient reports on and off headache since Sunday. 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 - Social history:: Smoking status: Patient uses tobacco products, denies chronic smoking, but will smoke occasionally. - Ebola Screening: : No symptoms or risks identified at this time. ROS: 06:19 Constitutional: Negative for fever, chills, and weight loss, Eyes: Negative for injury, pm1 pain, redness, and discharge, ENT: Negative for injury, pain, and discharge, Neck: Negative for injury, pain, and swelling, Cardiovascular: Negative for chest pain, palpitations, and edema, Respiratory: Negative for shortness of breath, cough, wheezing, and pleuritic chest pain, Abdomen/GI: Negative for abdominal pain, nausea, vomiting, diarrhea, and constipation, Back: Negative for injury and pain, : Negative for injury, bleeding, discharge, and swelling, MS/Extremity: Negative for injury and deformity, Skin: Negative for injury, rash, and discoloration. 06:19 Neuro: Positive for Tingling to lips, headache, and difficulty closing left eyelid fully . Exam: 06:45 Radiologist reports: CT head: No acute abnormality pm1 06:45 Constitutional: This is a well developed, well nourished patient who is awake, alert, and in no acute distress. Head/Face: Normocephalic, atraumatic. Eyes: Pupils equal round and reactive to light, extra-ocular motions intact. Lids and lashes normal. Conjunctiva and sclera are non-icteric and not injected. Cornea within normal limits. Periorbital areas with no swelling, redness, or edema. ENT: Nares patent. No nasal discharge, no septal abnormalities noted. Tympanic membranes are normal and external auditory canals are clear. Oropharynx with no redness, swelling, or masses, exudates, or evidence of obstruction, uvula midline. Mucous membranes moist. Neck: Trachea midline, no thyromegaly or masses palpated, and no cervical lymphadenopathy. Supple, full range of motion without nuchal rigidity, or vertebral point tenderness. No Meningismus. Chest/axilla: Normal chest wall appearance and motion. Nontender with no deformity. No lesions are appreciated. Cardiovascular: Regular rate and rhythm with a normal S1 and S2. No gallops, murmurs, or rubs. Normal PMI, no JVD. No pulse deficits. Respiratory: Lungs have equal breath sounds bilaterally, clear to auscultation and percussion. No rales, rhonchi or wheezes noted. No increased work of breathing, no retractions or nasal flaring. Abdomen/GI: Soft, non-tender, with normal bowel sounds. No distension or tympany. No guarding or rebound. No evidence of tenderness throughout. Back: No spinal tenderness. No costovertebral tenderness. Full range of motion. Skin: Warm, dry with normal turgor. Normal color with no rashes, no lesions, and no evidence of cellulitis. MS/ Extremity: Pulses equal, no cyanosis. Neurovascular intact. Full, normal range of motion. 06:45 Neuro: Orientation: is normal, Mentation: is normal, Cerebellar function: normal finger to nose testing, Motor: moves all fours, strength is 5/5 in all extremities, Sensation: is normal, no obvious gross deficits, numbness, is not appreciated, Left forehead sparing, inability to close left eyelid fully, inability to smile on left side, loss of nasolabial fold, . Vital Signs: 05:35 BP 142 / 71; Pulse 81; Resp 17 S; Temp 98.7(O); Pulse Ox 96% ; Weight 83.01 kg (R); cc3 Height 5 ft. 5 in. (165.10 cm) (R); Pain 6/10; 06:30 BP 137 / 70; Pulse 77; Resp 17 S; Pulse Ox 97% on R/A; cc3 07:30 BP 128 / 72; Pulse 76; Resp 18; Pulse Ox 97% on R/A; ph 08:28 BP 124 / 71; Pulse 74; Resp 18; Pulse Ox 97% on R/A; ph 09:05 Temp 97.9; ph 05:35 Body Mass Index 30.45 (83.01 kg, 165.10 cm) cc3 NIH Stroke Scale Scores: 05:35 NIHSS Score: 1 cc3 MDM: 06:18 Patient medically screened. pm1 08:27 Data reviewed: vital signs. Data interpreted: Pulse oximetry: on room air is 97 %. pm1 Interpretation: normal. Counseling: I had a detailed discussion with the patient and/or guardian regarding: the historical points, exam findings, and any diagnostic results supporting the discharge/admit diagnosis, lab results, radiology results, the need for outpatient follow up, a neurologist, to return to the emergency department if symptoms worsen or persist or if there are any questions or concerns that arise at home. 05/06 05:48 Order name: Basic Metabolic Panel; Complete Time: 06:37 gs 05/06 05:48 Order name: CBC with Diff; Complete Time: 06:37 gs 05/06 05:48 Order name: Protime (+inr); Complete Time: 06:37 gs 05/06 05:48 Order name: Ptt, Activated; Complete Time: 06:37 gs 05/06 05:48 Order name: CT Stroke Brain w/o Contrast gs 05/06 06:19 Order name: PASCUALA: taken at 0617H cc3 05/06 05:48 Order name: Stroke CXR 1 View; Complete Time: 07:17 gs 05/06 05:48 Order name: EKG; Complete Time: 05:49 gs 05/06 05:48 Order name: Accucheck; Complete Time: 06:20 gs 05/06 05:48 Order name: Cardiac monitoring; Complete Time: 06:13 gs 05/06 05:48 Order name: EKG - Nurse/Tech; Complete Time: 06:34 gs 05/06 05:48 Order name: IV Saline Lock; Complete Time: 06:34 gs 05/06 05:48 Order name: Labs collected and sent; Complete Time: 06:13 gs 05/06 05:48 Order name: NPO; Complete Time: 06:13 gs 05/06 05:48 Order name: O2 Per Protocol; Complete Time: 06:13 gs 05/06 05:48 Order name: O2 Sat Monitoring; Complete Time: 06:13 gs 05/06 05:48 Order name: Stroke Swallow Screen; Complete Time: 06:34 gs Administered Medications: 06:55 Drug: SOLU-Medrol 125 mg Route: IVP; Site: left antecubital; cc3 09:04 Follow up: Response: No adverse reaction ph 08:02 Drug: TORadol - Ketorolac 15 mg Route: IVP; Site: left antecubital; ph 09:04 Follow up: Response: No adverse reaction; Pain is decreased ph Point of Care Testing: Blood Glucose: 06:17 Blood Glucose: 136 mg/dL; cc3 Ranges: Critical Glucose Levels:Adult <50 mg/dl or >400 mg/dl <40 mg/dl or >180 mg/dl Disposition: 05/06/19 08:27 Discharged to Home. Impression: Heredia's palsy. - Condition is Stable. - Discharge Instructions: Heredia Palsy, Adult. - Prescriptions for prednisone 10 mg Oral tablet - take 6 tablets by ORAL route once daily for 5 days then 4 tablets by mouth once daily for 2 days, then 2 tablets by mouth once daily for 2 days, then 1 tablet once daily for 1 day; 43 tablet. - Work release form, Medication Reconciliation Form, Thank You Letter, Antibiotic Education, Prescription Opioid Use form. - Follow up: Emergency Department; When: As needed; Reason: Worsening of condition. Follow up: Private Physician; When: 2 - 3 days; Reason: Recheck today's complaints, Continuance of care, Re-evaluation by your physician. - Problem is new. - Symptoms have improved. NIH Stroke Scale - NIH Stroke Score Date: 05/06/2019 Time: 05:35 Total Score = 1 1a. Level of Consciousness (LOC) - 0(Alert) 1b. Level of Consciousness (LOC) (Year \T\ Age) - 0(Both) 1c. LOC Commands (Open \T\ Closes Eyes/Meat Scrubber) - 0(Both) 2. Best Gaze (Lateral Gaze Paresis) - 0(Normal) 3. Visual Field Loss - 0(No visual loss) 4. Facial Palsy - 1(Minor Paralysis) 5a. Left Arm: Motor (10-second hold) - 0(No drift) 5b. Right Arm: Motor (10-second hold) - 0(No drift) 6a. Left Leg: Motor (5-second hold - always test supine) - 0(No drift) 6b. Right Leg: Motor (5-second hold - always test supine) - 0(No drift) 7. Limb Ataxia (finger/nose \T\ heel/dudley - test with eyes open) - 0(Absent) 8. Sensory Loss (pinprick arms/legs/face) - 0(Normal) 9. Best Language: Aphasia (description/naming/reading) - 0(No aphasia) 10. Dysarthria (speech clarity - read or repeat words) - 0(Normal) 11. Extinction and Inattention (visual/tactile/auditory/spatial/personal) - 0(No abnormality) Initials: cc3 Addendum: 05/08/2019 17:20 Co-signature as Attending Physician, Shahriar Tejeda MD. Signatures: Dispatcher [employer] EDAZ Sera Perla RN RN ph Tera Raines, SISTER SUPERIOR SISTER SUPERIOR pm1 Shahriar Tejeda MD MD gs Cordel, Charlene cc3 Corrections: (The following items were deleted from the chart) 05/06 09:05 08:27 05/06/2019 08:27 Discharged to Home. Impression: Heredia's palsy. Condition ph is Stable. Forms are Medication Reconciliation Form, Thank You Letter, Antibiotic Education, Prescription Opioid Use. Follow up: Emergency Department; When: As needed; Reason: Worsening of condition. Follow up: Private Physician; When: 2 - 3 days; Reason: Recheck today's complaints, Continuance of care, Re-evaluation by your physician. Problem is new. Symptoms have improved. pm1
--- NOTE | 2019-05-06 08:29 | ER ---
Nurse's Notes [facility] Name: Amarilys Posey Age: 48 yrs Sex: Female : 1970 Arrival Date: 05/06/2019 Time: 05:29 Bed 18 Private MD: Michaela Guajardo Diagnosis: Heredia's palsy Presentation: 05/06 05:35 Presenting complaint: Patient states: "I cannot blink my left eye when I got up from cc3 sleep to go to bathroom this morning at around 0430H, I also feel numb around my lips and my mouth feels dry. I've been having left sided headache since Sunday and yesterday was the worst pain, now my headache is NRS 6/10". Transition of care: patient was not received from another setting of care. An acute neurological deficit is present. The charge nurse has been notified. Pre-hospital glucose is not applicable to this patient. Onset of symptoms was May 06, 2019 at 04:30. Risk Assessment: Do you want to hurt yourself or someone else? Patient reports no desire to harm self or others. Initial Sepsis Screen: Does the patient meet any 2 criteria? No. Patient's initial sepsis screen is negative. Does the patient have a suspected source of infection? No. Patient's initial sepsis screen is negative. Care prior to arrival: None. 05:35 Method Of Arrival: Ambulatory cc3 05:35 Acuity: JAVIER 2 cc3 Triage Assessment: 05:35 The onset of the patients symptoms was May 06, 2019 at 04:30. General: Appears in cc3 no apparent distress. uncomfortable, Behavior is calm, cooperative, appropriate for age. Pain: Complains of pain in left side of head Pain currently is 6 out of 10 on a pain scale. Quality of pain is described as aching, Pain began 2-3 days ago. EENT: Reports she cannot blink her left eye. Neuro: Level of Consciousness is awake, alert, obeys commands, Oriented to person, place, time, situation, Appropriate for age Peanut Picker are equal bilaterally Moves all extremities. Full function Gait is steady, Speech is normal, Facial droop on left, Pupils are PERRLA, Numbness in around lips Reports numbness in around lips since 0430H today morning Denies weakness in on all extremities blurred vision difficulty swallowing, photophobia. Cardiovascular: Denies chest pain, diaphoresis, fatigue, lightheadedness, nausea, palpitations, shortness of breath, syncope, vomiting, Heart tones S1 S2 present Capillary refill < 3 seconds in bilateral fingers Patient's skin is warm and dry. Rhythm is sinus rhythm. Respiratory: Airway is patent Respiratory effort is even, unlabored, Respiratory pattern is regular, symmetrical. GI: Abdomen is round non-distended. : No signs and/or symptoms were reported regarding the genitourinary system. Derm: Skin is intact, is healthy with good turgor, Skin is pink, warm \\T\\ dry. normal. Musculoskeletal: Circulation, motion, and sensation intact. Range of motion: intact in all extremities. 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 2 weeks ago cc3 Stroke Activation: Symptom onset < 3 hours Physician: Stroke Attending; Name: ; Notified At: ; Arrived At: Physician: Chief Stroke Resident; Name: ; Notified At: ; Arrived At: Physician: Stroke Resident; Name: ; Notified At: ; Arrived At: Physician: ED Attending; Name: Ileana; Notified At: 05:47; Arrived At: 05:47 Physician: ED Resident; Name: ; Notified At: ; Arrived At: Historical: - Allergies: 05:35 No Known Allergies; cc3 - Home Meds: 05:35 Jardiance Oral [Active]; Metformin Oral [Active]; Lisinopril Oral [Active]; cc3 - PMHx: 05:35 Diabetes - NIDDM; Hypertension; cc3 - PSHx: 05:35 Tubal ligation; abdominal surgery; cc3 - Immunization history:: Adult Immunizations up to date. - Social history:: Smoking status: Patient uses tobacco products, denies chronic smoking, but will smoke occasionally. - Ebola Screening: : No symptoms or risks identified at this time. Screenin:35 Abuse screen: Denies threats or abuse. Denies injuries from another. Nutritional cc3 screening: No deficits noted. Tuberculosis screening: No symptoms or risk factors identified. Fall Risk Ambulatory Aid- None/Bed Rest/Nurse Assist (0 pts). Gait- Normal/Bed Rest/Wheelchair (0 pts) Mental Status- Oriented to own ability (0 pts). Assessment: 05:35 VAN Scoring: Arm Drift: Patients demonstrates NO arm weakness. Patient is VAN Negative. cc3 Visual Disturbance: No visual disturbance noted. Aphasia: No aphasia noted. Neglect: No neglect noted. 06:25 Patient has been NPO before screening. The patient is alert, and able to follow cc3 commands. The patient does not exhibit slurred or garbled speech. The patient is not exhibiting difficulty speaking. The patient does not exhibit difficulty understanding words. The patient is able to swallow own secretions with no drooling or need for suction. Patient tolerated one teaspoon of water. No drooling, immediate coughing, gurgling, or clearing of the throat was noted. The patient tolerated 90mL of water. No drooling, immediate coughing, gurgling, or clearing of the throat was noted. The patient passed the bedside swallow screening. Oral medications may be given as ordered. Contact Physician for further diet orders. Provider notified of bedside swallow screening results: Tera Raines STUDENT SERVICES COORDINATOR. 08:27 Reassessment: Patient appears in no apparent distress at this time. Patient and/or ph family updated on plan of care and expected duration. Pain level reassessed. Patient is alert, oriented x 3, equal unlabored respirations, skin warm/dry/pink. Pt resting quietly, VSS, family at bedside. Vital Signs: 05:35 BP 142 / 71; Pulse 81; Resp 17 S; Temp 98.7(O); Pulse Ox 96% ; Weight 83.01 kg (R); cc3 Height 5 ft. 5 in. (165.10 cm) (R); Pain 6/10; 06:30 BP 137 / 70; Pulse 77; Resp 17 S; Pulse Ox 97% on R/A; cc3 07:30 BP 128 / 72; Pulse 76; Resp 18; Pulse Ox 97% on R/A; ph 08:28 BP 124 / 71; Pulse 74; Resp 18; Pulse Ox 97% on R/A; ph 09:05 Temp 97.9; ph 05:35 Body Mass Index 30.45 (83.01 kg, 165.10 cm) cc3 NIH Stroke Scale Scores: 05:35 NIHSS Score: 1 cc3 ED Course: 05:29 Patient arrived in ED. mr 05:29 Michaela Guajardo MD is Private Physician. mr 05:35 Arm band placed on left wrist. EKG completed in triage. Results shown to MD. cc3 05:35 Patient has correct armband on for positive identification. Placed in gown. Bed in low cc3 position. Call light in reach. Side rails up X2. slip maker on. Pulse ox on. NIBP on. 05:47 Laura Sutherland is Primary Nurse. cc3 06:03 Tera Raines NP is PHCP. pm1 06:03 Shahriar Tejeda MD is Attending Physician. pm1 06:17 CT Stroke Brain w/o Contrast In Process Unspecified. EDMS 06:30 Inserted saline lock: 20 gauge in left antecubital area, using aseptic technique. cc3 06:40 Triage completed. cc3 06:44 Stroke CXR 1 View In Process Unspecified. EDMS 07:00 Report given to RN BRYANT. cc3 07:55 Sera Perla, RN is Primary Nurse. ph 09:03 No provider procedures requiring assistance completed. IV discontinued, intact, ph bleeding controlled, No redness/swelling at site. Pressure dressing applied. Administered Medications: 06:55 Drug: SOLU-Medrol 125 mg Route: IVP; Site: left antecubital; cc3 09:04 Follow up: Response: No adverse reaction ph 08:02 Drug: TORadol - Ketorolac 15 mg Route: IVP; Site: left antecubital; ph 09:04 Follow up: Response: No adverse reaction; Pain is decreased ph Point of Care Testing: Blood Glucose: 06:17 Blood Glucose: 136 mg/dL; cc3 Ranges: Outcome: 08:27 Discharge ordered by MD. pm1 09:04 Discharged to home ambulatory, with significant other. ph 09:04 Condition: good 09:04 Discharge instructions given to patient, Instructed on discharge instructions, follow up and referral plans. medication usage, Demonstrated understanding of instructions, follow-up care, medications, Prescriptions given X 1. 09:05 Patient left the ED. ph NIH Stroke Scale - NIH Stroke Score Date: 05/06/2019 Time: 05:35 Total Score = 1 1a. Level of Consciousness (LOC) - 0(Alert) 1b. Level of Consciousness (LOC) (Year \\T\\ Age) - 0(Both) 1c. LOC Commands (Open \\T\\ Closes Eyes/Email Deployment Specialist) - 0(Both) 2. Best Gaze (Lateral Gaze Paresis) - 0(Normal) 3. Visual Field Loss - 0(No visual loss) 4. Facial Palsy - 1(Minor Paralysis) 5a. Left Arm: Motor (10-second hold) - 0(No drift) 5b. Right Arm: Motor (10-second hold) - 0(No drift) 6a. Left Leg: Motor (5-second hold - always test supine) - 0(No drift) 6b. Right Leg: Motor (5-second hold - always test supine) - 0(No drift) 7. Limb Ataxia (finger/nose \\T\\ heel/dudley - test with eyes open) - 0(Absent) 8. Sensory Loss (pinprick arms/legs/face) - 0(Normal) 9. Best Language: Aphasia (description/naming/reading) - 0(No aphasia) 10. Dysarthria (speech clarity - read or repeat words) - 0(Normal) 11. Extinction and Inattention (visual/tactile/auditory/spatial/personal) - 0(No abnormality) Initials: cc3 Signatures: Dispatcher [employer] Destiny Lin Patricia, RN RN ph Tera Raines, ADRIANNA STUDENT SERVICES COORDINATOR pm1 Laura Sutherland cc3
[2019-05-06 09:19] VITALS: O2SAT 97
[2019-05-06 09:22] VITALS: BP 124/71
[2019-05-06 09:23] VITALS: TEMP 97.9
--- NOTE | 2019-05-06 12:29 | EKG ---
Test Date: 2019-05-06 Test Time: 06:24:41 Procedures Rn: JOSHUA MEASUREMENT RESULTS: Intervals: Rate: 69 NM: 152 QRSD: 78 QT: 416 QTc: 445 [place]: P: 46 NM: 152 QRS: 20 T: 16 INTERPRETIVE STATEMENTS: Normal sinus rhythm Septal infarct, age undetermined Abnormal ECG Compared to ECG 12/21/2018 15:40:28 Myocardial infarct finding now present Sinus tachycardia no longer present ST (T wave) deviation no longer present Electronically Signed On 05-06-19 12:26:58 CDT by Noman Mcconnell
--- NOTE | 2019-05-06 14:17 | RAD REPORT ---
EXAM DESCRIPTION: Ct Stroke Brain Wo Cont ADDENDUM #1 THIS REPORT CONTAINS FINDINGS THAT MAY BE CRITICAL TO PATIENT CARE: The findings were verbally discussed via telephone conference with Dr. Shahriar Tejeda by Dr. Tyrese De Anda on 6:23 AM CDT .The results were acknowledged and understood. Electronically signed by: Asiya De Anda MD 05/06/2019 6:24 AM CDT End of Addendum EXAM DESCRIPTION: CT Head Without Intravenous Contrast CLINICAL HISTORY: The patient is 48 years old and is Female; WEAKNESS TECHNIQUE: Axial computed tomography images of the head/brain without intravenous contrast. Sagitt al and coronal reformatted images were created and reviewed. This CT exam was performed using one o r more of the following dose reduction techniques: automated exposure control, adjustment of the mA and/or kV according to patient size, and/or use of iterative reconstruction technique. COMPARISON: No relevant prior studies available. FINDINGS: BRAIN: Unremarkable. The hodges-white matter differentiation is preserved . No hemorrhag e. No significant white matter disease. No edema. No extra-axial fluid collections. VENTRICLES: Unremarkable. No ventriculomegaly. BONES/JOINTS: No acute fracture. SOFT TISSUES: Unremarkable. SINUSES: Unremarkable as visualized. No acute sinusitis. MASTOID AIR CELLS: Unremarkable as visualized. No mastoid effusion. ORBITS: Unremarkable as visualized. IMPRESSION: No acute intracranial findings. Electronically signed by: Asiya De Anda MD 05/06/2019 6:21 AM CDT Due to temporary technical issues with the PACS/Fluency reporting system, reports are being signed by the in house radiologist as a courtesy to ensure prompt reporting. The interpreting radiologist is f ully responsible for the content of the report.
== END 2019-05-06 09:05 | disposition home or self-care (01) ==
LOC: ER 05:25
DX: G51.0 Bell's palsy (principal); E11.9 Type 2 diabetes mellitus without complications; I10 Essential (primary) hypertension; Z72.0 Tobacco use
CPT/HCPCS: 93005; 85025; 80048; 36415; 85610; 82962; 85730; 70450; 71045; 96375; 96374; 99284; J2930

== ENCOUNTER 2019-10-17 07:23 | Day surgery (SDC) | payer OTHER ==
--- OUTSIDE RECORDS SUMMARY | 2019-10-17 07:26 | XMS REPORT ---
:1970 Author Organization [employer] Care Team Providers Name Role Phone Guajardo, Na Provider Role Unavailable Allergies No Known Allergies Problems Problem Type Condition Code Onset Dates Condition Status Assessment Hypokalemia E87.6 Active Assessment Hepatic abscess K75.0 Active Assessment Anemia, unspecified type D64.9 Active Problem Controlled type 2 diabetes mellitus E11.9 Active without complication, without long-term current use of insulin Assessment Hypomagnesemia E83.42 Active Problem Essential hypertension I10 Active Assessment Type 2 diabetes mellitus without E11.9 Active complication, without long-term current use of insulin Problem Pure hypercholesterolemia E78.00 Active Problem Acute midline low back pain with M54.41 Active right-sided sciatica Problem SVT (supraventricular tachycardia) I47.1 Active Problem Situational depression F43.21 Active Problem Hypomagnesemia E83.42 Active Problem 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 Problem Migraine without aura G43.009 Active Problem 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 Problem Chronic fatigue R53.82 Active Problem Lumbosacral radiculopathy due to M47.27 Active degenerative joint disease of spine Problem Type 2 diabetes mellitus without E11.9 Active complication, without long-term current use of insulin Problem Perforated stomach K25.5 Active Problem Dysthymic disorder F34.1 Active Problem Allergic rhinitis, seasonal J30.2 Active Problem Abnormal liver enzymes 790.5 Active Problem Diabetes mellitus type 2 in obese E11.9 Active Problem Obesity E66.9 Active Problem Acute urinary tract infection N39.0 Active Problem Vitamin D deficiency E55.9 Active Problem Vitamin B12 deficiency E53.8 Active Medications No Known Medications Results No Known Results Summary Purpose eClinicalWorks Submission
--- OUTSIDE RECORDS SUMMARY | 2019-10-17 07:26 | XMS REPORT ---
:1970 Author Organization [employer] Care Team Providers Name Role Phone Guajardo, Na Provider Role Unavailable Allergies, Adverse Reactions, Alerts Substance Reaction Event Type N.K.D.A. 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 Problem Pure hypercholesterolemia E78.00 Active Problem Acute [...] Problem Vitamin B12 deficiency E53.8 Active Medications Medication Code Code Instructions Start End Status Dosage System Date Date Crestor [facility] 44392460377 5 MG Orally Active 1 tablet Once a day Lisinopril [facility] 19670711322 5 MG Orally Active 1 tablet Once a day Topiramate ND 90626426598 25 MG Orally Active 1 tablet Twice a day Jardiance [facility] 02523915918 25 MG Orally Active 1 tablet Once a day Contrave [facility] 26686558971 8-90 MG Orally Active 2 tablets Twice a day Effexor XR [facility] 57397189441 75 MG Orally Active 1 capsule Once a day with food Cambia [facility] 84169080609 50 MG Orally Active not defined Cyclobenzaprine [facility] 60823519808 10 MG Orally Active 1 tablet HCl once a day as needed Zanaflex [facility] 63205284887 2 MG Orally Active 1 capsule Three times a as needed day Duexis [facility] 46834307750 800-26.6 MG Active 1 tablet Orally Three times a day Cyclobenzaprine [facility] 43670301386 10 MG Orally Active 1 tablet HCl every 8 hours as needed as needed for pain/ muscle spasms Lisinopril [facility] 59274701266 5 MG Orally Active 1 tablet Once a day Zyrtec Allergy [facility] 62094238896 10 MG Orally Active 1 tablet Once a day Fioricet [facility] 97979085868 50-300-40 MG Active 1 capsule Orally every 4 as needed hrs Vitamin D [facility] 99277260227 83212 UNIT Active 1 capsule (Ergocalciferol) Orally Augmentin [facility] 97941268825 875-125 MG Active 1 tablet Orally every 12 hrs Results No Known Results Summary Purpose eClinicalWorks Submission
--- OUTSIDE RECORDS SUMMARY | 2019-10-17 07:27 | XMS REPORT ---
:1970 Author Organization [employer] Care Team Providers Name Role Phone Michael Daniela Provider Role Unavailable Allergies, Adverse Reactions, Alerts Substance Reaction Event Type N.K.D.A. Info Not Available Non Drug Allergy Problems Problem Type Condition Code Onset Dates Condition Status Assessment Epigastric pain R10.13 Active Assessment Diabetes mellitus type 2 in obese E11.9 Active Problem SVT (supraventricular tachycardia) I47.1 Active Problem Acute midline low back pain with M54.41 Active right-sided sciatica Problem Migraine without aura G43.009 Active Problem Lumbosacral radiculopathy due to M47.27 Active degenerative joint disease of spine Problem Perforated stomach K25.5 Active Problem Chronic fatigue R53.82 Active Problem Dennise albicans infection B37.9 Active Problem Uncontrolled type 2 diabetes E11.65 Active mellitus with hyperglycemia Problem Dysthymic disorder F34.1 Active Problem Diabetes mellitus type 2 in obese E11.9 Active Problem Epigastric pain R10.13 Active Problem Abnormal liver enzymes 790.5 Active Problem Hypomagnesemia E83.42 Active Problem Type 2 diabetes mellitus without E11.9 Active complication, without long-term current use of insulin Problem 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 Problem Situational depression F43.21 Active Problem Vitamin B12 deficiency E53.8 Active Problem Obesity E66.9 Active Problem Allergic rhinitis, seasonal J30.2 Active Problem Vitamin D deficiency E55.9 Active Problem Essential hypertension I10 Active Problem Pure hypercholesterolemia E78.00 Active Problem Acute urinary tract infection N39.0 Active Problem Controlled type 2 diabetes mellitus E11.9 Active without complication, without long-term current use of insulin Medications Medication Code Code Instructions Start End Date Status Dosage System Date Zyrtec Allergy [facility] 53048284612 10 MG Orally Active 1 tablet Once a day Lisinopril ND 48248127533 5 MG Active TAKE 1 TABLET BY MOUTH EVERY DAY Duexis ND 95235215989 800-26.6 MG Active 1 tablet Orally Three times a day Metformin HCl ND 78931966833 500 MG Orally Active 1 tablet Twice a day with a meal Crestor [facility] 64744419279 5 MG Orally Active 1 tablet Once a day Trulicity [facility] 74749314685 0.75 MG/0.5ML Aug 05October Active as directed Subcutaneous 2019 once a week Vitamin D [facility] 96660939030 50 MCG (2000 Active 1 capsule (Ergocalcifero [place]) Orally Once l) a day Results No Known Results Summary Purpose eClinicalWorks Submission
--- OUTSIDE RECORDS SUMMARY | 2019-10-17 07:27 | XMS REPORT ---
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 Problem Abnormal liver enzymes 790.5 Active Problem 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 Problem Dennise albicans infection B37.9 Active Problem Type 2 diabetes mellitus without E11.9 Active complication, without long-term current use of insulin Problem Perforated stomach K25.5 Active Problem Situational depression F43.21 Active Problem Hypomagnesemia E83.42 Active Problem Vitamin D deficiency E55.9 Active Problem Vitamin B12 deficiency E53.8 Active Problem Dysthymic disorder F34.1 Active Problem Allergic rhinitis, seasonal J30.2 Active Problem Controlled type 2 diabetes mellitus E11.9 Active without complication, without long-term current use of insulin Problem Essential hypertension I10 Active Problem Obesity E66.9 Active Problem Pure hypercholesterolemia E78.00 Active Problem Migraine without aura G43.009 Active Problem Acute urinary tract infection N39.0 Active Problem SVT (supraventricular tachycardia) I47.1 Active Medications Medication Code Code Instructions Start End Date Status Dosage System Date Metformin HCl [facility] 37527883798 500 MG Orally Active 1 tablet Twice a day with a meal Results No Known Results Summary Purpose eClinicalWorks Submission
--- OUTSIDE RECORDS SUMMARY | 2019-10-17 07:27 | XMS REPORT ---
:1970 Author Organization [employer]Works Care Team Providers Name Role Phone Lyndsey Daniel Provider Role Unavailable Allergies, Adverse Reactions, Alerts Substance Reaction Event Type N.K.D.A. Info Not Available Non Drug Allergy Problems Problem Type Condition Code Onset Dates Condition Status Assessment Uncontrolled type 2 diabetes E11.65 Active mellitus with hyperglycemia Assessment Diabetes mellitus type 2 in obese E11.9 Active Problem Pure hypercholesterolemia E78.00 Active Problem SVT (supraventricular tachycardia) I47.1 Active Problem Migraine without aura G43.009 Active Problem Acute midline low back pain with M54.41 Active right-sided sciatica Problem Chronic fatigue R53.82 Active Problem Lumbosacral radiculopathy due to M47.27 Active degenerative joint disease of spine Problem Uncontrolled type 2 diabetes E11.65 Active mellitus with hyperglycemia Problem 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 Problem Diabetes mellitus type 2 in obese E11.9 Active Problem Abnormal liver enzymes 790.5 Active Problem Dennise albicans infection B37.9 Active Problem 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 Problem Type 2 diabetes mellitus without E11.9 [...] I10 Active Problem Obesity E66.9 Active Problem Acute urinary tract infection N39.0 Active Medications Medication Code Code Instructions Start End Date Status Dosage System Date Trulicity [facility] 65034056507 0.75 MG/0.5ML Aug 05October Active as directed Subcutaneous 2019 once a week Nystatin ND 02597210589 464678 UNIT/GM Jul 02, Aug 31, Active 1 application Externally 2018 2019 Twice a day Metformin HCl ND 82856974967 500 MG Orally Active 1 tablet with Twice a day a meal Jardiance [facility] 98347257621 25 MG Active TAKE 1 TABLET BY MOUTH EVERY DAY Duexis [facility] 76541464584 800-26.6 MG Active 1 tablet Orally Three times a day Vitamin D [facility] 57862038419 32446 UNIT Active 1 capsule (Ergocalcifer Orally ol) Januvia [facility] 12959835503 100 MG Orally Active 1 tablet Once a day Zyrtec [facility] 84719525159 10 MG Orally Active 1 tablet Allergy Once a day Lisinopril [facility] 67634747137 5 MG Active TAKE 1 TABLET BY MOUTH EVERY DAY Effexor XR [facility] 47131976334 75 MG Orally Active 1 capsule Once a day with food Crestor [facility] 37570388878 5 MG Orally Active 1 tablet Once a day Results No Known Results Summary Purpose eClinicalWorks Submission
--- OUTSIDE RECORDS SUMMARY | 2019-10-17 07:27 | XMS REPORT ---
:1970 Author Organization eClinicalWorks Care Team Providers Name Role Phone Lyndsey Daniel Provider Role Unavailable Allergies, Adverse Reactions, Alerts Substance Reaction Event Type N.K.D.A. Info Not Available Non Drug Allergy Problems Problem Type Condition Code Onset Dates Condition Status Assessment Uncontrolled type 2 diabetes E11.65 Active mellitus with hyperglycemia Assessment Dennise albicans infection B37.9 Active Problem Pure hypercholesterolemia E78.00 Active Problem [...] Start End Status Dosage System Date Date Effexor XR ND 72318601800 75 MG Orally Active 1 capsule Once a day with food Vitamin D [facility] 31940705683 02185 UNIT Active 1 capsule (Ergocalcifer Orally ol) Crestor ND 50349833665 5 MG Orally Active 1 tablet Once a day Zyrtec [facility] 69727070061 10 MG Orally Active 1 tablet Allergy Once a day Metformin HCl [facility] [address]-19 500 MG Orally Active 1 tablet with Twice a day a meal Jardiance [facility] 20659548377 25 MG Orally Active 1 tablet Once a day Duexis [facility] 32211027080 800-26.6 MG Active 1 tablet Orally Three times a day Lisinopril [facility] 34871828683 5 MG Orally Active 1 tablet Once a day Nystatin [facility] 95180796133 874572 UNIT/GM Jul 02Aug Active 1 application Externally 2018 08, Twice a day 2019 Results Name Result Date Reference Range Unit Abnormality Flag HEMOGLOBIN A1C ----A1C 9.7 [id number] Summary Purpose eClinicalWorks Submission
[2019-10-17] MEDS ORDERED: NA CHLORIDE 0.9% 1,000 ML ONE (07:43)
[2019-10-17] MEDS ORDERED: propofoL 200 MG/20 ML VIAL IV ONE (08:05)
[2019-10-17] MEDS ORDERED: LIDOCAINE 1% MPF 5 ML VIAL ONE (08:05)
--- NOTE | 2019-10-17 09:03 | ENDO RPT ---
[address], [address] EGD PROCEDURE REPORT EXAM DATE: 10/17/2019 PATIENT NAME: Amarilys Posey MR#: [id number] BIRTHDATE: 1970 ATTENDING: John Hansen DR STATUS: outpatient TIPPLE ENGINEER: Blanca Mcknight RN and Zbigniew Franco [facility] INDICATIONS: The patient is a 49 yr old Female here for an EGD due to mid epigastric abdominal pain PROCEDURE PERFORMED: EGD with biopsy and EGD with biopsy for H. pylori MEDICATIONS: Per Anesthesia. TOPICAL ANESTHETIC: none CONSENT: The patient understands the risks and benefits of the procedure and understands that these risks include, but are not limited to: sedation, allergic reaction, infection, perforation and/or bleeding. Alternative means of evaluation and treatment include, among others: physical exam, x-rays, and/or surgical intervention. The patient elects to proceed with this endoscopic procedure. DESCRIPTION OF PROCEDURE: During intra-op preparation period all mechanical medical equipment was checked for proper function. Hand hygiene and appropriate measures for infection prevention was taken. Procedure, possible complications, and alternatives including but not limited to the possibility of bleeding, perforation, tear, infection, sepsis, need for surgery, need for blood transfusion, and anesthesia related complications were explained to the patient. After the risks, benefits and alternatives of the procedure were thoroughly explained, Informed consent was verified, confirmed and timeout was successfully executed by the treatment team. The patient was placed in the left lateral position. The patient was anesthetized with topical anesthesia. Through the anesthetized oropharyngeal area, the scope was passed without any difficulty. The Pentax [id number] ([id number]) endoscope was introduced through the mouth and advanced to the second portion of the duodenum. Retroflexed views revealed a small hiatal hernia. The gastroscope was then slowly withdrawn and removed. Duodenitis was found in the bulb and descending duodenum. A biopsy for H. pylori was taken. Moderate Atrophic gastritis was found in the total stomach. A biopsy for H. pylori was taken. Multiple erosions were found at the pylorus. A biopsy for H. pylori was taken. Multiple erosions were found in the fundus. A biopsy for H. pylori was taken. The esophagus and gastroesophageal junction were completely normal in appearance. With standard forceps, a biopsy was obtained and sent to pathology. ADVERSE EVENTS: There were no complications. IMPRESSIONS: 1. Duodenitis was found in the bulb and descending duodenum 2. Moderate Atrophic gastritis was found in the total stomach 3. Multiple erosions were found at the pylorus 4. Multiple erosions were found in the fundus 5. Normal esophagus RECOMMENDATIONS: 1. avoid NSAIDS 2. anti-reflux regimen 3. acid suppression therapy 4. await biopsy results 5. follow-up: office 2 week(s) 6. follow-up of helicobacter pylori status, treat if indicated REPEAT EXAM: John Hansen DR eSigned: John Hansen DR 10/17/2019 9:02 AM cc: CPT CODES: ICD9 CODES: PATIENT NAME: Amarilys Posey MR#: [id number]
--- NOTE | 2019-10-17 09:05 | ENDO RPT ---
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 INDICATIONS: The patient is a 49 yr old Female here for a colonoscopy due to colon cancer screening PROCEDURE PERFORMED: Colonoscopy and Screening Colonoscopy MEDICATIONS: Per Anesthesia. ESTIMATED BLOOD LOSS: None CONSENT: The patient understands the risks and benefits of the procedure and understands that these risks include, but are not limited to: sedation, allergic reaction, infection, perforation and/or bleeding. Alternative means of evaluation and treatment include, among others: physical exam, x-rays, and/or surgical intervention. The patient elects to proceed with this endoscopic procedure. DESCRIPTION OF PROCEDURE: During intra-op preparation period all mechanical medical equipment was checked for proper function. Hand hygiene and appropriate measures for infection prevention was taken. Procedure, possible complications, alternatives including, but not limited to possibility of bleeding, perforation, tear, infection, sepsis, need for surgery, need for blood transfusion, were explained to the patient. After the risks, benefits and alternatives of the procedure were thoroughly explained, Informed consent was verified, confirmed and timeout was successfully executed by the treatment team. The patient was placed in the left lateral position. A digital rectal exam was performed and revealed internal hemorrhoids. After appropriate level of anesthesia, the scope was passed. The [id number] ([id number]) endoscope was introduced through the anus and advanced to the cecum, which was identified by both the appendix and ileocecal valve. The quality of the prep was fair. The instrument was then slowly withdrawn as the colon was fully examined. Scope withdrawal time was 8 minutes. COLON FINDINGS: Small internal hemorrhoids were found. The colon mucosa was otherwise normal. Retroflexed views revealed no abnormalities. The scope was then completely withdrawn from the patient and the procedure terminated. ADVERSE EVENTS: There were no complications. IMPRESSIONS: 1. Small internal hemorrhoids 2. The colon mucosa was otherwise normal RECOMMENDATIONS: 1. avoid NSAIDS for 2 weeks 2. fiber rich diet 3. follow-up: office 2 week(s) 4. Monitor for any evidence of rectal bleeding. 5. yearly hemoccult starting in 4 years 6. hemorrhoidal hygiene 7. increase dietary water RECALL: Return in 10 year(s) for Colonoscopy, pending biopsy results. Fecal FIT test in [address] eSigned: John Hansen DR 10/17/2019 9:05 AM cc: CPT CODES: ICD9 CODES: PATIENT NAME: Amarilys PoseyCarmen MR#: [id number]
[2019-10-17 09:23] VITALS: TEMP 97.3
[2019-10-17 09:25] VITALS: O2SAT 97
[2019-10-17 09:27] VITALS: BP 131/65
== END 2019-10-17 09:39 | disposition home or self-care (01) ==
LOC: OR 07:23
PROVIDERS: ATTEND Surgery
PROC: 0DB68ZX Excision of Stomach, Via Natural or Artificial Opening Endoscopic, Diagnostic (ICD-10-PCS; 2019-10-17)
PROC: 0DB58ZX Excision of Esophagus, Via Natural or Artificial Opening Endoscopic, Diagnostic (ICD-10-PCS; 2019-10-17)
PROC: 0DJD8ZZ Inspection of Lower Intestinal Tract, Via Natural or Artificial Opening Endoscopic (ICD-10-PCS; 2019-10-17)
PROC: 0DB98ZX Excision of Duodenum, Via Natural or Artificial Opening Endoscopic, Diagnostic (ICD-10-PCS; principal; 2019-10-17 09:15)
PROC: 0DB78ZX Excision of Stomach, Pylorus, Via Natural or Artificial Opening Endoscopic, Diagnostic (ICD-10-PCS; 2019-10-17 09:15)
DX: K29.50 Unspecified chronic gastritis without bleeding (principal); B96.81 Helicobacter pylori [H. pylori] as the cause of diseases classified elsewhere; K21.0 Gastro-esophageal reflux disease with esophagitis; K29.80 Duodenitis without bleeding; K25.9 Gastric ulcer, unspecified as acute or chronic, without hemorrhage or perforation; Z12.11 Encounter for screening for malignant neoplasm of colon; K64.8 Other hemorrhoids
CPT/HCPCS: 88312; 82947; 88305; 43239; 45378; J2704; J7030

== ENCOUNTER 2021-05-07 07:11 | Emergency (ER) | payer OTHER ==
[2021-05-07] MEDS ORDERED: ADENOSINE 6 MG/ 2ML VIAL IV ONE (07:54)
[2021-05-07] MEDS ORDERED: NA CHLORIDE 0.9% 1,000 ML ONE (07:54)
[2021-05-07] MEDS ORDERED: MAGNESIUM SULFATE 1 gm IVPB 1 GM/100 ML BAG IV ONE (08:00)
[2021-05-07 08:22] LABS: Protime INR 0.94
[2021-05-07 08:23] LABS: Absolute Lymphocytes (CBC) 3.4 K/uL (0.7-4.9); Basophils % 0.4 % (0-1.3); Hematocrit 43.2 % (36.0-45.0); Lymphocytes % 28.2 % (15.3-44.8); MPV 8.8 fL (7.6-11.3); RBC Red Blood Cell Count 4.92 M/uL (3.86-4.86)
[2021-05-07 08:41] LABS: BUN Blood Urea Nitrogen 12 mg/dL (7-18); Bicarbonate 23 mmol/L (21-32); Glucose Level 266 mg/dL (74-106); NT PRO-BNP 43 pg/mL (<125); Potassium 3.6 mmol/L (3.5-5.1); Sodium Level 139 mmol/L (136-145); Troponin (Emerg Dept Use Only) < 0.02 ng/mL (0.0-0.045)
--- NOTE | 2021-05-07 09:36 | RAD REPORT ---
EXAM DESCRIPTION: RAD - Chest Single View - 05/07/2021 7:51 am CLINICAL HISTORY: PALPITATIONS Chest pain. COMPARISON: Chest Single View dated 05/06/2019; Chest Single View dated 12/21/2018; Chest Single View dated 07/08/2018; Chest Pa And Lat (2 Views) dated 12/12/2017 FINDINGS: Portable technique limits examination quality. Mild interstitial opacities bilaterally. These appear more prominent than on yesterday's study and ma y represent a viral infection or bronchitis. The heart is normal in size. No displaced fractures.
[2021-05-07] MEDS ORDERED: METOPROLOL TAR 25 MG TAB ONE (09:46)
--- NOTE | 2021-05-07 09:56 | ER ---
Nurse's Notes [facility] Name: Amarilys Posey Age: 50 yrs Sex: Female : 1970 Arrival Date: 05/07/2021 Time: 07:14 Bed 23 Private MD: Diagnosis: Supraventricular tachycardia Presentation: 05/07 07:34 Chief complaint: Patient states: HR 90-190 at home this morning. Awoke at 0430 to use ll1 the restroom and noticed fast HR. Feels weak. Has happened once in the past (SVT). Coronavirus screen: Client denies travel out of the [place] in the last 14 days. At this time, the client does not indicate any symptoms associated with coronavirus-19. Ebola Screen: Patient denies travel to an Ebola-affected area in the 21 days before illness onset. Initial Sepsis Screen: Does the patient meet any 2 criteria? HR > 90 bpm. Yes Does the patient have a suspected source of infection? No. Patient's initial sepsis screen is negative. Risk Assessment: Do you want to hurt yourself or someone else? Patient reports no desire to harm self or others. Onset of symptoms was May 07, 2021. 07:34 Method Of Arrival: Ambulatory ll1 07:34 Acuity: JAVIER 2 ll1 Triage Assessment: 07:40 General: Appears uncomfortable, Behavior is cooperative, appropriate for age. oh Historical: - Allergies: 07:23 No Known Allergies; ll1 - PMHx: 07:23 Diabetes - NIDDM; Hypertension; ll1 - Immunization history:: Adult Immunizations up to date. - Social history:: Smoking status: Patient denies any tobacco usage or history of. - Family history:: not pertinent. - Hospitalizations: : No recent hospitalization is reported. Screenin:16 Abuse screen: Denies threats or abuse. Nutritional screening: No deficits noted. oh Tuberculosis screening: No symptoms or risk factors identified. Fall Risk None identified. Assessment: 08:17 Cardiovascular: Reports palpitations, Rhythm is SVT. oh Vital Signs: 07:34 BP 111 / 66; Pulse 200; Resp 18; Pulse Ox 99% on R/A; ll1 07:46 BP 94 / 48; Pulse 199; Resp 20; Pulse Ox 100% on 2 lpm NC; oh 07:50 BP 113 / 67; Pulse 19; Resp 19; Pulse Ox 100% on 2 lpm NC; oh 07:55 BP 117 / 70; Pulse 102; Resp 17; Pulse Ox 100% on 2 lpm NC; oh 08:00 BP 121 / 69; Pulse 102; Resp 14; Pulse Ox 100% on 2 lpm NC; oh 09:19 BP 141 / 76; Pulse 114; Resp 17; Pulse Ox 99% on R/A; oh 10:48 BP 136 / 74; Pulse 113; Resp 16; Pulse Ox 99% on R/A; oh ED Course: 07:14 Patient arrived in ED. mr 07:22 Arm band placed on Patient placed in an exam room, on a stretcher. ll1 07:25 Tera Raines NP is PHCP. pm1 07:25 Ebenezer Rutledge MD is Attending Physician. pm1 07:34 Annabel Varma, NICHOL is Primary Nurse. oh 07:35 Triage completed. ll1 07:40 Inserted saline lock: 20 gauge in right in left antecubital area, using aseptic oh technique. Blood collected. 07:45 Assist provider with cardioversion for treatment of SVT Set up for procedure. Performed oh by Ebenezer Rutledge MD Monitored with radiographer cardiac catheterization, pulse ox, Post procedure rhythm is sinus rhythm. Patient tolerated well. 07:49 XRAY Chest (1 view) In Process Unspecified. EDMS 08:17 Bed in low position. Call light in reach. Side rails up X2. oh 10:49 IV discontinued, bleeding controlled, Pressure dressing applied. oh Administered Medications: 07:30 Drug: Magnesium Sulfate 1 grams Route: IVPB; Infused Over: 1 hrs; Site: left oh antecubital; 07:30 Drug: NS 0.9% 500 ml Route: IV; Rate: bolus; Site: right antecubital; oh 07:46 Drug: Adenosine 6 mg Route: IVP; Site: right antecubital; oh 09:24 Drug: Metoprolol 25 mg Route: PO; oh Outcome: 09:55 Discharge ordered by . rn 10:48 Discharged to home ambulatory. oh 10:48 Condition: stable 10:48 Discharge instructions given to patient. 10:49 Patient left the ED. oh Signatures: Dispatcher [employer] [facility] Destiny Phillips mr Ebenezer Rutledge MD MD rn Marinas, Patrick, NP GLOBE CHANGER pm1 Thang Briones RN RN ll1 Annabel Varma, RN RN oh
--- NOTE | 2021-05-07 09:56 | EDPHYS ---
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 07:33 The patient presents with a history of heart racing. Context: The symptoms occur at rn rest. Onset: The symptoms/episode began/occurred this morning. Duration: The patient or guardian reports a single episode, that is still ongoing. Modifying factors: The symptoms are aggravated by nothing. The symptoms are alleviated by nothing. Associated signs and symptoms: Pertinent positives: chest pain, lightheadedness, Pertinent negatives: fever, syncope, vomiting. Severity of symptoms: At their worst the symptoms were moderate in the emergency department the symptoms are unchanged. The patient has experienced a previous episode. The patient has not recently seen a physician. Patient reports onset of palpitations around 10/31/1929 this morning. Constant since then. Has had SVT in the past and required adenosine for cardioversion. Reports felt fine recently no illness and no preceding chest pain and happened all of a sudden this morning unexpectedly. Reports palpitations and mild chest tightness but otherwise feels okay. No history of IN.. Historical: - Allergies: 07:23 No Known Allergies; ll1 - PMHx: 07:23 Diabetes - NIDDM; Hypertension; ll1 - Immunization history:: Adult Immunizations up to date. - Social history:: Smoking status: Patient denies any tobacco usage or history of. - Family history:: not pertinent. - Hospitalizations: : No recent hospitalization is reported. ROS: 07:33 Constitutional: Negative for fever, chills, and weight loss, Eyes: Negative for injury, rn pain, redness, and discharge, Neck: Negative for injury, pain, and swelling, Cardiovascular: Positive for chest pain and palpitations Respiratory: Negative for shortness of breath, cough, wheezing, and pleuritic chest pain, Abdomen/GI: Negative for abdominal pain, nausea, vomiting, diarrhea, and constipation, Back: Negative for injury and pain, MS/Extremity: Negative for injury and deformity, Skin: Negative for injury, rash, and discoloration, Neuro: Negative for headache, weakness, numbness, tingling, and seizure. 07:33 All other systems are negative. Exam: 07:33 Constitutional: This is a well developed, well nourished patient who is awake, alert, rn appears anxious Head/Face: Normocephalic, atraumatic. Eyes: Periorbital areas with no swelling, redness, or edema. Cardiovascular: Tachycardic, regular Respiratory: No increased work of breathing, no retractions or nasal flaring. Abdomen/GI: Soft, non-tender Skin: Warm, dry with normal turgor. Normal color with no rashes, no lesions, and no evidence of cellulitis. MS/ Extremity: Pulses equal, no cyanosis. Neurovascular intact. Full, normal range of motion. Equal circumference. Neuro: Awake and alert, GCS 15, oriented to person, place, time, and situation. Cranial nerves II-XII grossly intact. Motor strength 5/5 in all extremities. Sensory grossly intact. 07:53 ECG was reviewed by the Attending Physician. rn Vital Signs: 07:34 BP 111 / 66; Pulse 200; Resp 18; Pulse Ox 99% on R/A; ll1 07:46 BP 94 / 48; Pulse 199; Resp 20; Pulse Ox 100% on 2 lpm NC; oh 07:50 BP 113 / 67; Pulse 19; Resp 19; Pulse Ox 100% on 2 lpm NC; oh 07:55 BP 117 / 70; Pulse 102; Resp 17; Pulse Ox 100% on 2 lpm NC; oh 08:00 BP 121 / 69; Pulse 102; Resp 14; Pulse Ox 100% on 2 lpm NC; oh 09:19 BP 141 / 76; Pulse 114; Resp 17; Pulse Ox 99% on R/A; oh 10:48 BP 136 / 74; Pulse 113; Resp 16; Pulse Ox 99% on R/A; oh Procedures: 07:49 Cardioversion:. Performed Chemical cardioversion. Patient placed on monitor with rn paddles, loaded with IV fluids and magnesium, given 6 mg of adenosine with successful cardioversion. Patient now sinus rhythm and feels much better. Chest pain has resolved.. MDM: 07:25 Patient medically screened. pm1 07:52 ED course: Patient chemically cardioverted with adenosine successfully. Patient feels rn much better. 08:53 ED course: Patient doing well, asymptomatic. Remains in sinus rhythm. Labs rn unremarkable.. 09:53 Differential diagnosis: arrythmia, dehydration, stress disorder. Data reviewed: vital rn signs, nurses notes, lab test result(s), EKG, radiologic studies, plain films, and as a result, I will discharge patient. Data interpreted: quality assurance monitor: rate is 110 beats/min, rhythm is sinus tachycardia, with no ectopy, Interpretation: tachycardia, Pulse oximetry: on room air is 99 %. Interpretation: normal. Counseling: I had a detailed discussion with the patient and/or guardian regarding: the historical points, exam findings, and any diagnostic results supporting the discharge/admit diagnosis, lab results, radiology results, the need for outpatient follow up, to return to the emergency department if symptoms worsen or persist or if there are any questions or concerns that arise at home. Special discussion: I discussed with the patient/guardian in detail that at this point there is no indication for admission to the hospital. It is understood, however, that if the symptoms persist or worsen the patient needs to return immediately for re-evaluation. 09:53 ED course: Patient remains sinus rhythm and asymptomatic. Will DC home with rn resource nurse follow-up and told will likely need gas golf cart repairer in future for recurrent SVT. Troponin negative and no ischemia on ECG.. 05/07 07:30 Order name: Basic Metabolic Panel; Complete Time: 09:24 rn 05/07 07:30 Order name: CBC with Diff; Complete Time: : rn 05/07 07:30 Order name: NT PRO-BNP; Complete Time: : rn 05/07 07:30 Order name: PT-INR; Complete Time: : rn 05/07 07:30 Order name: Troponin (emerg Dept Use Only); Complete Time: :24 rn 05/07 07:30 Order name: XRAY Chest (1 view); Complete Time: rn 05/07 07:30 Order name: EKG; Complete Time: :30 rn 05/07 07:30 Order name: Cardiac monitoring; Complete Time: 08: rn 05/07 07:30 Order name: EKG - Nurse/Tech; Complete Time: 08: rn 05/07 07:30 Order name: IV Saline Lock; Complete Time: 08: rn 05/07 07:30 Order name: Labs collected and sent; Complete Time: 08: rn 05/07 07:30 Order name: O2 Per Protocol; Complete Time: rn 05/07 07:30 Order name: O2 Sat Monitoring; Complete Time: : rn EC:53 Rate is 195 beats/min. Rhythm is regular. QRS [place] is Normal. TX interval is normal. rn QRS interval is normal. QT interval is normal. No Q waves. T waves are Normal. ST Segment is depressed in leads II, III, aVF, V2, V3, V4, V5, V6. Clinical impression: SVT. Interpreted by me. Reviewed by me. Administered Medications: 07:30 Drug: Magnesium Sulfate 1 grams Route: IVPB; Infused Over: 1 hrs; Site: left oh antecubital; :30 Drug: NS 0.9% 500 ml Route: IV; Rate: bolus; Site: right antecubital; oh 07:46 Drug: Adenosine 6 mg Route: IVP; Site: right antecubital; oh 09:24 Drug: Metoprolol 25 mg Route: PO; oh Disposition Summary: 05/07/21 09:55 Discharge Ordered Location: Home rn Problem: new rn Symptoms: have improved rn Condition: Stable rn Diagnosis - Supraventricular tachycardia rn Followup: rn - With: Private Physician - When: 2 - 3 days - Reason: Recheck today's complaints, Re-evaluation by your physician Discharge Instructions: - Discharge Summary Sheet rn - Supraventricular Tachycardia, Adult rn Forms: - Medication Reconciliation Form rn - Thank You Letter rn - Antibiotic senior internet sales consultant - Prescription Opioid Use internet merchant time excluding procedures: :24 Critical care time: Bedside Care: 35 minutes. Total time: 35 minutes rn Signatures: Dispatcher [employer] Ebenezer Morgan MD MD rn Marinas, Patrick, ADRIANNA CATTLE CARE WORKER pm1 Thang Briones, RN RN ll1 Annabel Varma, RN RN oh
[2021-05-07 11:15] VITALS: O2SAT 99
[2021-05-07 11:16] VITALS: BP 136/74
--- NOTE | 2021-05-09 07:09 | EKG ---
Test Date: 2021-05-07 Test Time: 07:53:59 In Flight Refueling System Repairer: JUDITH MEASUREMENT RESULTS: Intervals: Rate: 95 W[place]: 156 QRSD: 74 QT: 362 QTc: 454 [place]: P: 49 [place]: 156 QRS: 46 T: 56 INTERPRETIVE STATEMENTS: Normal sinus rhythm Normal ECG Compared to ECG 05/07/2021 07:36:19 Supraventricular tachycardia no longer present ST (T wave) deviation no longer present Electronically Signed On 05-09-21 07:04:58 CDT by Sukhdev Lawrence
== END 2021-05-07 10:49 | disposition home or self-care (01) ==
LOC: ER 07:11
DX: I47.1 Supraventricular tachycardia (principal)
CPT/HCPCS: 92960; 93005 ×2; 85025; 80048; 36415; 85610; 84484; 83880; 71045; 96375; 96374; 99291; 99292; J0153; J3475; J7030

== ENCOUNTER 2022-09-07 17:45 | Emergency (ER) | payer BC ==
--- OUTSIDE RECORDS SUMMARY | 2022-09-07 17:49 | XMS REPORT | Continuity of Care Document ---
:1970 Author Organization [facility] t Address [address] [place] [address] Care Team Providers Name Role Phone FredyMichaela Attending Clinician Unavailable Payers Payer Name Policy Type Policy Number Effective Date Expiration Date S sudhirsamuel Blue [place] 6 [id number] Common Spiri t Blue [facility] AETNA 53 [id number] 2020 [facility] 00:00:00 [facility] Problems Condition Condition Condition Status Onset Resolution Last Treating Co mments Source Name Details Category Date Date Treatment Clinician Date [id number] Left hip Problem Commo n pain [facility] [id number] Rt flank Problem Comm on pain [facility] [id number] Pain of Problem Commo n right Spirit thumb [facility] Seasonal Allergic Problem Commo n allergic rhinitis, Spiri t rhinitis seasonal [facility] Dysthymia Dysthymic Problem Com mon disorder [facility] Vitamin Vitamin Problem Common B12 B12 Spirit deficiency deficiency [facility] Vitamin D Vitamin D Problem Com mon deficiency deficiency Sp dylan [facility] [id number] Essential Problem Comm on hypertensi Spirit on [facility] Obesity Obesity Problem Common [facility] [id number] SVT Problem Common (supravent Spirit ricular [facility] tachycardi [facility] [id number] Pure Problem Common hyperchole Spirit sterolemia - [facility] Chronic Chronic Problem Common fatigue fatigue [facility] syndrome [facility] [id number] Hypomagnes Problem Co mmon emia [facility] [id number] Reactive Problem Commo n depression [facility] [id number] 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 [facility] spine Migraine Migraine Problem Commo n without without Spirit aura aura - [facility] [id number] Acute Problem Common midline Spirit low back - [facility]I pain with St right-side [facility] d sciatica [facility] Liver Abnormal Problem Common enzymes liver [facility] abnormal enzymes [facility] [id number] Uncontroll Problem Co mmon ed type 2 [facility] diabetes - [facility] mellitus [facility] hyperglyce [facility] [id number] 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 [facility] [id number] Sciatica Problem Commo n of right [facility] side [facility] Allergies, Adverse Reactions, Alerts Allergy Allergy Status Severity Reaction(s) Onset Inactive Treating Comm ents Source Name Type Date Date Clinician tramadol tramadol Active vomiting Comm on [facility] Social History Social Habit Start Date Stop Date Quantity Comments Source History of Tobacco Use Co mmon [facility] Sex Assigned At Com mon [facility] Smoking Status Start Date Stop Date Source Never Smoker Common [facility] Medications Ordered Filled Start Stop Current Ordering Indication Dosage Frequency Signature Comments Components Source Medication Medication Date Date Medication? Clinician (SIG) Name Name Sertraline Sertraline No 1{table QD Sertraline HCl 25 MG HCl 25 MG 7-07 t} HCl 25 MG 00:00: 00 Metoprolol Metoprolol No 1{table QD Metoprolol Succinate Succinate 2-07 t} Succinate ER 25 MG ER 25 MG 00:00: ER 25 MG 00 Metoprolol Metoprolol No 1{table QD Metoprolol Succinate Succinate 207 t} Succinate ER 25 MG ER 25 MG 00:00: ER 25 MG 00 Metoprolol Metoprolol No 1{table QD Metoprolol Succinate Succinate 2-07 t} Succinate ER 25 MG ER 25 MG 00:00: ER 25 MG 00 Metoprolol Metoprolol 2021-0 No 1{table QD Metoprolol Succinate Succinate 2-07 t} Succinate ER 25 MG ER 25 MG 00:00: ER 25 MG 00 Metoprolol Metoprolol 2021-0 No 1{table QD Metoprolol Succinate Succinate 2-07 t} Succinate ER 25 MG ER 25 MG 00:00: ER 25 MG 00 Metoprolol Metoprolol 2021-0 No 1{table QD Metoprolol Succinate Succinate 2-07 t} Succinate ER 25 MG ER 25 MG 00:00: ER 25 MG 00 Metoprolol Metoprolol 2021-0 No 1{table QD Metoprolol Succinate Succinate 2-07 t} Succinate ER 25 MG ER 25 MG 00:00: ER 25 MG 00 Metoprolol Metoprolol 2021-0 No 1{table QD Metoprolol Succinate Succinate 2-07 t} Succinate ER 25 MG ER 25 MG 00:00: ER 25 MG 00 Metoprolol Metoprolol 2021-0 No 1{table QD Metoprolol Succinate Succinate 2-07 t} Succinate ER 25 MG ER 25 MG 00:00: ER 25 MG 00 Metoprolol Metoprolol 2021-0 No 1{table QD Metoprolol Succinate Succinate 2-07 t} Succinate ER 25 MG ER 25 MG 00:00: ER 25 MG 00 Metoprolol Metoprolol 2021-0 No 1{table QD Metoprolol Succinate Succinate 2-07 t} Succinate ER 25 MG ER 25 MG 00:00: ER 25 MG 00 Metoprolol Metoprolol 2021-0 No 1{table QD Metoprolol Succinate Succinate 2-07 t} Succinate ER 25 MG ER 25 MG 00:00: ER 25 MG 00 Metoprolol Metoprolol 2021-0 No 1{table QD Metoprolol Succinate Succinate 2-07 t} Succinate ER 25 MG ER 25 MG 00:00: ER 25 MG 00 Metoprolol Metoprolol 2021-0 No 1{table QD Metoprolol Succinate Succinate 2-07 t} Succinate ER 25 MG ER 25 MG 00:00: ER 25 MG 00 Metoprolol Metoprolol 2-0 No 1{table QD Metoprolol Succinate Succinate 2-07 t} Succinate ER 25 MG ER 25 MG 00:00: ER 25 MG 00 Metoprolol Metoprolol No 1{table QD Metoprolol Succinate Succinate 2-07 t} Succinate ER 25 MG ER 25 MG 00:00: ER 25 MG 00 Metoprolol Metoprolol No 1{table QD Metoprolol Succinate Succinate 2-07 t} Succinate ER 50 MG ER 50 MG 00:00: ER 50 MG 00 Metoprolol Metoprolol No 1{table QD Metoprolol Succinate Succinate 2-07 t} Succinate ER 25 MG ER 25 MG 00:00: ER 25 MG 00 Rosuvastati Rosuvastati No 1{table QD Rosuvastat n Calcium 5 n Calcium 5 5-12 t} in Calcium MG MG 00:00: 5 MG Rosuvastati Rosuvastati No 1{table QD Rosuvastat n Calcium 5 n Calcium 5 5-12 t} in Calcium MG MG 00:00: 5 MG Rosuvastati Rosuvastati No 1{table QD Rosuvastat n Calcium 5 n Calcium 5 5-12 t} in Calcium MG MG 00:00: 5 MG Rosuvastati Rosuvastati No 1{table QD Rosuvastat n Calcium 5 n Calcium 5 5-12 t} in Calcium MG MG 00:00: 5 MG Rosuvastati Rosuvastati No 1{table QD Rosuvastat n Calcium 5 n Calcium 5 5-12 t} in Calcium MG MG 00:00: 5 MG Rosuvastati Rosuvastati No 1{table QD Rosuvastat n Calcium 5 n Calcium 5 5-12 t} in Calcium MG MG 00:00: 5 MG Rosuvastati Rosuvastati No 1{table QD Rosuvastat n Calcium 5 n Calcium 5 5-12 t} in Calcium MG MG 00:00: 5 MG Rosuvastati Rosuvastati No 1{table QD Rosuvastat n Calcium 5 n Calcium 5 5-12 t} in Calcium MG MG 00:00: 5 MG Rosuvastati Rosuvastati No 1{table QD Rosuvastat n Calcium 5 n Calcium 5 5-12 t} in Calcium MG MG 00:00: 5 MG 00 Rosuvastati Rosuvastati No 1{table QD Rosuvastat n Calcium 5 n Calcium 5 5-12 t} in Calcium MG MG 00:00: 5 MG 00 Rosuvastati Rosuvastati No 1{table QD Rosuvastat n Calcium 5 n Calcium 5 5-12 t} in Calcium MG MG 00:00: 5 MG 00 Ketorolac Ketorolac 2018- No 60mg Com mon 15mg 15mg 0-18 Spirit 00:00: - [facility] Ketorolac Ketorolac 2018- No 60mg Com mon 15mg 15mg 0-18 Spirit 00:00: - [facility] Ketorolac Ketorolac 2018- No 60mg Com mon 15mg 15mg 0-18 Spirit 00:00: - [facility] Ketorolac Ketorolac 2018- No 60mg Com mon 15mg 15mg 0-18 Spirit 00:00: - [facility] Ketorolac Ketorolac 2019- No 60mg Com mon 15mg 15mg 0-18 [facility] 00:00: - [facility] Ketorolac Ketorolac 2018- No 60mg Com mon 15mg 15mg 0-18 Spirit 00:00: - [facility] Ketorolac Ketorolac 2018- No 60mg Com mon 15mg 15mg 0-18 Spirit 00:00: - [facility] Ketorolac Ketorolac 2019- No 60mg Com mon 15mg 15mg 0-18 Spirit 00:00: - [facility] Ketorolac Ketorolac 2019- No 60mg Com mon 15mg 15mg 0-18 Spirit 00:00: - [facility] Ketorolac Ketorolac 2019- No 60mg Com mon 15mg 15mg 0-18 Spirit 00:00: - [facility] Ketorolac Ketorolac 2018- No 60mg Com mon 15mg 15mg 0-18 Spirit 00:00: - [facility] Ketorolac Ketorolac 2019- No 60mg Com mon 15mg 15mg 0-18 Spirit 00:00: - [facility] Ketorolac Ketorolac 2019-1 No 60mg Com mon 15mg 15mg 0-18 Spirit 00:00: - [facility] 00 [facility] Kenalog Kenalog 2019-0 No 40mg Common (Triamcinol (Triamcinol 3-07 S pirit one) one) 00:00: - [facility] 00 [facility] Kenalog Kenalog 2019-0 No 40mg Common (Triamcinol (Triamcinol 3-07 S pirit one) one) 00:00: - [facility] 00 [facility] Kenalog Kenalog 2019-0 No 40mg Common (Triamcinol (Triamcinol 3-07 S pirit one) one) 00:00: - [facility] 00 [facility] Kenlindsey Kenalog 2019-0 No 40mg Common (Triamcinol (Triamcinol 3-07 S pirit one) one) 00:00: - [facility] 00 [facility] Kenlindsey Kenalog 2019-0 No 40mg Common (Triamcinol (Triamcinol 3-07 S pirit one) one) 00:00: - [facility] 00 [facility] Kenalog Kenalog 2019-0 No 40mg Common (Triamcinol (Triamcinol 3-07 S pirit one) one) 00:00: - [facility] 00 [facility] Kenalog Kenalog 2019-0 No 40mg Common (Triamcinol (Triamcinol 3-07 S pirit one) one) 00:00: - [facility] 00 [facility] Kenalog Kenalog 2019-0 No 40mg Common (Triamcinol (Triamcinol 3-07 S pirit one) one) 00:00: - [facility] 00 [facility] Kenalog Kenalog 2019-0 No 40mg Common (Triamcinol (Triamcinol 3-07 S pirit one) one) 00:00: - [facility] 00 [facility] Kenalog Kenalog 2019-0 No 40mg Common (Triamcinol (Triamcinol 3-07 S pirit one) one) 00:00: - [facility] 00 [facility] Kenalog Kenalog 2019-0 No 40mg Common (Triamcinol (Triamcinol 3-07 S pirit one) one) 00:00: - [facility] 00 [facility] Venessa Clifford 2018-0 No 40mg Common (Triamcinol (Triamcinol 3-07 S pirit one) one) 00:00: - [facility] Venessa Clifford 0 No 40mg Common (Triamcinol (Triamcinol 3-07 S pirit one) one) 00:00: - [facility] 00 [facility] Lisinopril Lisinopril Yes Lyndsey TAKE 1 Common [place] TABLET BY Spirit MOUTH - [facility] EVERY DAY [facility] Vitamin D Vitamin D Yes Lyndsey 1 capsule Common (Ergocalcif (Ergocalcif [place] Spirit cornel) cornel) [facility] Duexis Duexis Yes Lyndsey 1 tablet Common [place] Spirit [facility] Metformin Metformin Yes Lyndsey 1 tablet Common HCl HCl [place] with a Spirit meal - [facility] Zyrtec Zyrtec Yes Lyndsey 1 tablet Common Allergy Allergy [facility] Crestor Crestor Yes Lyndsey 1 tablet Comm on [place] Spirit [facility] Trulicity Trulicity Yes Lyndsey as Comm on [place] directed [facility] Vitamin D Vitamin D No 1{capsu QD Vitamin D (Ergocalcif (Ergocalcif le} (Ergocalci cornel) 50 cornel) 50 ferol) 50 MCG (2000 MCG (2000 MCG (1999 UT) UT) UT) Pioglitazon Pioglitazon No 1{table QD Pioglitazo e HCl 15 MG e HCl 15 MG t} ne HCl 15 MG Naproxen Naproxen No Naproxen 500 MG 500 MG 500 MG Trulicity Trulicity No Trulicity 1.5 1.5 1.5 MG/0.5ML MG/0.5ML MG/0.5ML Lisinopril Lisinopril No Lisinopril 5 MG 5 MG 5 MG ZyrTEC ZyrTEC No 1{table QD ZyrTEC Allergy 10 Allergy 10 t} Allergy 10 MG MG MG Vitamin D Vitamin D No 1{capsu QD Vitamin D (Ergocalcif (Ergocalcif le} (Ergocalci cornel) 50 cornel) 50 ferol) 50 MCG (2000 MCG (2000 MCG (1999 UT) UT) UT) Pioglitazon Pioglitazon No 1{table QD Pioglitazo e HCl 15 MG e HCl 15 MG t} ne HCl 15 MG ZyrTEC ZyrTEC No 1{table QD ZyrTEC Allergy 10 Allergy 10 t} Allergy 10 MG MG MG Trulicity Trulicity No Trulicity 1.5 1.5 1.5 MG/0.5ML MG/0.5ML MG/0.5ML Naproxen Naproxen No Naproxen 500 MG 500 MG 500 MG Pioglitazon Pioglitazon No 1{table QD Pioglitazo e HCl 15 MG e HCl 15 MG t} ne HCl 15 MG Vitamin D Vitamin D No 1{capsu QD Vitamin D (Ergocalcif (Ergocalcif le} (Ergocalci cornel) 50 cornel) 50 ferol) 50 MCG (2000 MCG (2000 MCG (1999 UT) UT) UT) ZyrTEC ZyrTEC No 1{table QD ZyrTEC Allergy 10 Allergy 10 t} Allergy 10 MG MG MG Trulicity Trulicity No Trulicity 1.5 1.5 1.5 MG/0.5ML MG/0.5ML MG/0.5ML Naproxen Naproxen No Naproxen 500 MG 500 MG 500 MG Pioglitazon Pioglitazon No 1{table QD Pioglitazo e HCl 15 MG e HCl 15 MG t} ne HCl 15 MG Vitamin D Vitamin D No 1{capsu QD Vitamin D (Ergocalcif (Ergocalcif le} (Ergocalci cornel) 50 cornel) 50 ferol) 50 MCG (2000 MCG (2000 MCG (1999 UT) UT) UT) ZyrTEC ZyrTEC No 1{table QD ZyrTEC Allergy 10 Allergy 10 t} Allergy 10 MG MG MG Trulicity Trulicity No Trulicity 1.5 1.5 1.5 MG/0.5ML MG/0.5ML MG/0.5ML Naproxen Naproxen No Naproxen 500 MG 500 MG 500 MG Pioglitazon Pioglitazon No 1{table QD Pioglitazo e HCl 15 MG e HCl 15 MG t} ne HCl 15 MG Vitamin D Vitamin D No 1{capsu QD Vitamin D (Ergocalcif (Ergocalcif le} (Ergocalci cornel) 50 cornel) 50 ferol) 50 MCG (2000 MCG (2000 MCG (1999 UT) UT) UT) ZyrTEC ZyrTEC No 1{table QD ZyrTEC Allergy 10 Allergy 10 t} Allergy 10 MG MG MG Trulicity Trulicity No Trulicity 1.5 1.5 1.5 MG/0.5ML MG/0.5ML MG/0.5ML Naproxen Naproxen No Naproxen 500 MG 500 MG 500 MG Pioglitazon Pioglitazon No 1{table QD Pioglitazo e HCl 15 MG e HCl 15 MG t} ne HCl 15 MG Vitamin D Vitamin D No 1{capsu QD Vitamin D (Ergocalcif (Ergocalcif le} (Ergocalci cornel) 50 cornel) 50 ferol) 50 MCG (2000 MCG (2000 MCG (1999 UT) UT) UT) Naproxen Naproxen No Naproxen 500 MG 500 MG 500 MG Vitamin D Vitamin D No 1{capsu QD Vitamin D (Ergocalcif (Ergocalcif le} (Ergocalci cornel) 50 cornel) 50 ferol) 50 MCG (2000 MCG (2000 MCG (1999 UT) UT) UT) ZyrTEC ZyrTEC No 1{table QD ZyrTEC Allergy 10 Allergy 10 t} Allergy 10 MG MG MG Pioglitazon Pioglitazon No 1{table QD Pioglitazo e HCl 15 MG e HCl 15 MG t} ne HCl 15 MG Trulicity Trulicity No Trulicity 1.5 1.5 1.5 MG/0.5ML MG/0.5ML MG/0.5ML Naproxen Naproxen No Naproxen 500 MG 500 MG 500 MG Vitamin D Vitamin D No 1{capsu QD Vitamin D (Ergocalcif (Ergocalcif le} (Ergocalci cornel) 50 cornel) 50 ferol) 50 MCG (2000 MCG (2000 MCG (1999 UT) UT) UT) Trulicity 3 Trulicity 3 No Trulicity MG/0.5ML MG/0.5ML 3 MG/0.5ML Pioglitazon Pioglitazon No 1{table QD Pioglitazo e HCl 15 MG e HCl 15 MG t} ne HCl 15 MG Cetirizine Cetirizine No Cetirizine HCl 10 MG HCl 10 MG HCl 10 MG Pioglitazon Pioglitazon No 1{table QD Pioglitazo e HCl 15 MG e HCl 15 MG t} ne HCl 15 MG Trulicity 3 Trulicity 3 No Trulicity MG/0.5ML MG/0.5ML 3 MG/0.5ML Naproxen Naproxen No Naproxen 500 MG 500 MG 500 MG Vitamin D Vitamin D No 1{capsu QD Vitamin D (Ergocalcif (Ergocalcif le} (Ergocalci cornel) 50 cornel) 50 ferol) 50 MCG (2000 MCG (1999 MCG (1999 UT) UT) UT) Cetirizine Cetirizine No Cetirizine HCl 10 MG HCl 10 MG HCl 10 MG Trulicity 3 Trulicity 3 No Trulicity MG/0.5ML MG/0.5ML 3 MG/0.5ML Pioglitazon Pioglitazon No 1{table QD Pioglitazo e HCl 15 MG e HCl 15 MG t} ne HCl 15 MG Vitamin D Vitamin D No 1{capsu QD Vitamin D (Ergocalcif (Ergocalcif le} (Ergocalci cornel) 50 cornel) 50 ferol) 50 MCG (2000 MCG (1999 MCG (1999 UT) UT) UT) Cetirizine Cetirizine No Cetirizine HCl 10 MG HCl 10 MG HCl 10 MG Naproxen Naproxen No Naproxen 500 MG 500 MG 500 MG Pioglitazon Pioglitazon No 1{table QD Pioglitazo e HCl 15 MG e HCl 15 MG t} ne HCl 15 MG Vitamin D Vitamin D No 1{capsu QD Vitamin D (Ergocalcif (Ergocalcif le} (Ergocalci cornel) 50 cornel) 50 ferol) 50 MCG (2000 MCG (1999 MCG (1999 UT) UT) UT) Rosuvastati Rosuvastati No Rosuvastat n Calcium 5 n Calcium 5 in Calcium MG MG 5 MG Trulicity 3 Trulicity 3 No Trulicity MG/0.5ML MG/0.5ML 3 MG/0.5ML Cetirizine Cetirizine No Cetirizine HCl 10 MG HCl 10 MG HCl 10 MG Naproxen Naproxen No Naproxen 500 MG 500 MG 500 MG Pioglitazon Pioglitazon No 1{table QD Pioglitazo e HCl 15 MG e HCl 15 MG t} ne HCl 15 MG Vitamin D Vitamin D No 1{capsu QD Vitamin D (Ergocalcif (Ergocalcif le} (Ergocalci cornel) 50 cornel) 50 ferol) 50 MCG (2000 MCG (1999 MCG (1999 UT) UT) UT) Rosuvastati Rosuvastati No Rosuvastat n Calcium 5 n Calcium 5 in Calcium MG MG 5 MG Trulicity 3 Trulicity 3 No Trulicity MG/0.5ML MG/0.5ML 3 MG/0.5ML Cetirizine Cetirizine No Cetirizine HCl 10 MG HCl 10 MG HCl 10 MG Naproxen Naproxen No Naproxen 500 MG 500 MG 500 MG Trulicity 3 Trulicity 3 No Trulicity MG/0.5ML MG/0.5ML 3 MG/0.5ML Naproxen Naproxen No Naproxen 500 MG 500 MG 500 MG Cetirizine Cetirizine No Cetirizine HCl 10 MG HCl 10 MG HCl 10 MG Vitamin D Vitamin D No 1{capsu QD Vitamin D (Ergocalcif (Ergocalcif le} (Ergocalci cornel) 50 cornel) 50 ferol) 50 MCG (1999 MCG (1999 MCG (1999) UT) UT) Rosuvastati Rosuvastati No Rosuvastat n Calcium 5 n Calcium 5 in Calcium MG MG 5 MG Pioglitazon Pioglitazon No 1{table QD Pioglitazo e HCl 15 MG e HCl 15 MG t} ne HCl 15 MG Vitamin D Vitamin D No 1{capsu QD Vitamin D (Ergocalcif (Ergocalcif le} (Ergocalci cornel) 50 cornel) 50 ferol) 50 MCG (1999 MCG (1999 MCG (1999 UT) UT) UT) Pioglitazon Pioglitazon No 1{table QD Pioglitazo e HCl 15 MG e HCl 15 MG t} ne HCl 15 MG Naproxen Naproxen No Naproxen 500 MG 500 MG 500 MG Rosuvastati Rosuvastati No Rosuvastat n Calcium 5 n Calcium 5 in Calcium MG MG 5 MG Sertraline Sertraline No 1{table QD Sertraline HCl 25 MG HCl 25 MG t} HCl 25 MG Sertraline Sertraline No 1{table QD Sertraline HCl 25 MG HCl 25 MG t} HCl 25 MG Cetirizine Cetirizine No Cetirizine HCl 10 MG HCl 10 MG HCl 10 MG Trulicity 3 Trulicity 3 No Trulicity MG/0.5ML MG/0.5ML 3 MG/0.5ML Naproxen Naproxen No Naproxen 500 MG 500 MG 500 MG Trulicity 3 Trulicity 3 No Trulicity MG/0.5ML MG/0.5ML 3 MG/0.5ML Sertraline Sertraline No 1{table QD Sertraline HCl 25 MG HCl 25 MG t} HCl 25 MG Vitamin D Vitamin D No 1{capsu QD Vitamin D (Ergocalcif (Ergocalcif le} (Ergocalci cornel) 50 cornel) 50 ferol) 50 MCG (2000 MCG (2000 MCG (2000 UT) UT) UT) Rosuvastati Rosuvastati No Rosuvastat n Calcium 5 n Calcium 5 in Calcium MG MG 5 MG Pioglitazon Pioglitazon No 1{table QD Pioglitazo e HCl 15 MG e HCl 15 MG t} ne HCl 15 MG Sertraline Sertraline No 1{table QD Sertraline HCl 25 MG HCl 25 MG t} HCl 25 MG Cetirizine Cetirizine No Cetirizine HCl 10 MG HCl 10 MG HCl 10 MG Vitamin D Vitamin D No 1{capsu QD Vitamin D (Ergocalcif (Ergocalcif le} (Ergocalci cornel) 50 cornel) 50 ferol) 50 MCG (2000 MCG (2000 MCG (2000 UT) UT) UT) Cetirizine Cetirizine No Cetirizine HCl 10 MG HCl 10 MG HCl 10 MG Sertraline Sertraline No 1{table QD Sertraline HCl 25 MG HCl 25 MG t} HCl 25 MG Trulicity 3 Trulicity 3 No Trulicity MG/0.5ML MG/0.5ML 3 MG/0.5ML Rosuvastati Rosuvastati No Rosuvastat n Calcium 5 n Calcium 5 in Calcium MG MG 5 MG Naproxen Naproxen No Naproxen 500 MG 500 MG 500 MG Pioglitazon Pioglitazon No 1{table QD Pioglitazo e HCl 15 MG e HCl 15 MG t} ne HCl 15 MG Sertraline Sertraline No 1{table QD Sertraline HCl 25 MG HCl 25 MG t} HCl 25 MG Vitamin D Vitamin D No 1{capsu QD Vitamin D (Ergocalcif (Ergocalcif le} (Ergocalci cornel) 50 cornel) 50 ferol) 50 MCG (2000 MCG (1999 MCG (1999 UT) UT) UT) Cetirizine Cetirizine No Cetirizine HCl 10 MG HCl 10 MG HCl 10 MG Sertraline Sertraline No 1{table QD Sertraline HCl 25 MG HCl 25 MG t} HCl 25 MG Trulicity 3 Trulicity 3 No Trulicity MG/0.5ML MG/0.5ML 3 MG/0.5ML Rosuvastati Rosuvastati No Rosuvastat n Calcium 5 n Calcium 5 in Calcium MG MG 5 MG Naproxen Naproxen No Naproxen 500 MG 500 MG 500 MG Pioglitazon Pioglitazon No 1{table QD Pioglitazo e HCl 15 MG e HCl 15 MG t} ne HCl 15 MG Sertraline Sertraline No 1{table QD Sertraline HCl 25 MG HCl 25 MG t} HCl 25 MG Vitamin D Vitamin D No 1{capsu QD Vitamin D (Ergocalcif (Ergocalcif le} (Ergocalci cornel) 50 cornel) 50 ferol) 50 MCG (2000 MCG (2000 MCG (1999 UT) UT) UT) Cetirizine Cetirizine No Cetirizine HCl 10 MG HCl 10 MG HCl 10 MG Sertraline Sertraline No 1{table QD Sertraline HCl 25 MG HCl 25 MG t} HCl 25 MG Trulicity 3 Trulicity 3 No Trulicity MG/0.5ML MG/0.5ML 3 MG/0.5ML Rosuvastati Rosuvastati No Rosuvastat n Calcium 5 n Calcium 5 in Calcium MG MG 5 MG Naproxen Naproxen No Naproxen 500 MG 500 MG 500 MG Pioglitazon Pioglitazon No 1{table QD Pioglitazo e HCl 15 MG e HCl 15 MG t} ne HCl 15 MG Sertraline Sertraline No 1{table QD Sertraline HCl 25 MG HCl 25 MG t} HCl 25 MG Naproxen Naproxen No Naproxen 500 MG 500 MG 500 MG Rosuvastati Rosuvastati No Rosuvastat n Calcium 5 n Calcium 5 in Calcium MG MG 5 MG Sertraline Sertraline No 1{table QD Sertraline HCl 50 MG HCl 50 MG t} HCl 50 MG Vitamin D Vitamin D No 1{capsu QD Vitamin D (Ergocalcif (Ergocalcif le} (Ergocalci cornel) 50 cornel) 50 ferol) 50 MCG (2000 MCG (2000 MCG (1999 UT) UT) UT) Cetirizine Cetirizine No Cetirizine HCl 10 MG HCl 10 MG HCl 10 MG Naproxen Naproxen No Naproxen 500 MG 500 MG 500 MG Trulicity 3 Trulicity 3 No Trulicity MG/0.5ML MG/0.5ML 3 MG/0.5ML Sertraline Sertraline No 1{table QD Sertraline HCl 25 MG HCl 25 MG t} HCl 25 MG Vitamin D Vitamin D No 1{capsu QD Vitamin D (Ergocalcif (Ergocalcif le} (Ergocalci cornel) 50 cornel) 50 ferol) 50 MCG (2000 MCG (2000 MCG (1999 UT) UT) UT) Rosuvastati Rosuvastati No Rosuvastat n Calcium 5 n Calcium 5 in Calcium MG MG 5 MG Pioglitazon Pioglitazon No 1{table QD Pioglitazo e HCl 15 MG e HCl 15 MG t} ne HCl 15 MG Sertraline Sertraline No 1{table QD Sertraline HCl 25 MG HCl 25 MG t} HCl 25 MG Cetirizine Cetirizine No Cetirizine HCl 10 MG HCl 10 MG HCl 10 MG Pioglitazon Pioglitazon No 1{table QD Pioglitazo e HCl 15 MG e HCl 15 MG t} ne HCl 15 MG Lisinopril Lisinopril No Lisinopril 5 MG 5 MG 5 MG Vitamin D Vitamin D No 1{capsu QD Vitamin D (Ergocalcif (Ergocalcif le} (Ergocalci cornel) 50 cornel) 50 ferol) 50 MCG (2000 MCG (2000 MCG (1999 UT) UT) UT) Naproxen Naproxen No Naproxen 500 MG 500 MG 500 MG ZyrTEC ZyrTEC No 1{table QD ZyrTEC Allergy 10 Allergy 10 t} Allergy 10 MG MG MG Trulicity Trulicity No Trulicity 1.5 1.5 1.5 MG/0.5ML MG/0.5ML MG/0.5ML Naproxen Naproxen No Naproxen 500 MG 500 MG 500 MG Trulicity Trulicity No Trulicity 1.5 1.5 1.5 MG/0.5ML MG/0.5ML MG/0.5ML Lisinopril Lisinopril No Lisinopril 5 MG 5 MG 5 MG ZyrTEC ZyrTEC No 1{table QD ZyrTEC Allergy 10 Allergy 10 t} Allergy 10 MG MG MG Trulicity Trulicity 2022- No Trulicity 4.5 4.5 05-09 4.5 MG/0.5ML MG/0.5ML 00:00 MG/0.5ML :00 Immunizations Ordered Immunization Filled Immunization Date Status Commen ts Source Name Name Boostrix (Tdap) Boostrix (Tdap) 2021-11-24 Completed Comm on [facility] 17:37:00 [facility] Boostrix (Tdap) Boostrix (Tdap) 2021-11-24 Completed Comm on [facility] 17:37:00 [facility] Boostrix (Tdap) Boostrix (Tdap) 2021-11-24 Completed Comm on [facility] 17:37:00 [facility] Boostrix (Tdap) Boostrix (Tdap) 2021-11-24 Completed Comm on [facility] 17:37:00 [facility] Boostrix (Tdap) Boostrix (Tdap) 2021-11-24 Completed Comm on [facility] 17:37:00 [facility] Boostrix (Tdap) Boostrix (Tdap) 2021-11-24 Completed Comm on [facility] 17:37:00 - [facility] Boostrix (Tdap) Boostrix (Tdap) 2021-11-24 Completed Comm on [facility] 17:37:00 - [facility] Boostrix (Tdap) Boostrix (Tdap) 2021-11-24 Completed Comm on [facility] 17:37:00 [facility] Boostrix (Tdap) Boostrix (Tdap) 2021-11-24 Completed Comm on [facility] 17:37:00 [facility] Boostrix (Tdap) Boostrix (Tdap) 2021-11-24 Completed Comm on [facility] 17:37:00 [facility] Boostrix (Tdap) Boostrix (Tdap) 2021-11-24 Completed Comm on [facility] 17:37:00 [facility] Vital Signs Vital Name Observation Time Observation Value Comments Source height 2022-09-06 11:40:00 65.5 [in_i] [facility] weight 2022-09-06 11:40:00 176.6 [lb_av] [facility] temperature 2022-09-06 11:40:00 97.5 [degF] [facility] bmi 2022-09-06 11:40:00 28.94 kg/m2 [facility] oximetry 2022-09-06 11:40:00 97 % [facility] respiratory rate 2022-09-06 11:40:00 18 /min Comm on [facility] blood pressure 2022-09-06 11:40:00 152 mm[Hg] [facility] [facility] systolic [facility] blood pressure 2022-09-06 11:40:00 76 mm[Hg] Common [facility] diastolic [facility] height 2022-04-26 11:40:00 65.5 [in_i] [facility] weight 2022-04-26 11:40:00 181.8 [lb_av] [facility] temperature 2022-04-26 11:40:00 97.2 [degF] Common [facility] bmi 2022-04-26 11:40:00 29.79 kg/m2 Common [facility] oximetry 2022-04-26 11:40:00 98 % Common S [facility] respiratory rate 2022-04-26 11:40:00 16 /min Comm on [facility] blood pressure 2022-04-26 11:40:00 139 mm[Hg] Common [facility] - systolic [facility] blood pressure 2022-04-26 11:40:00 68 mm[Hg] Common [facility] - diastolic [facility] height 2022-03-06 11:40:00 Common S pirit [facility] weight 2022-03-06 11:40:00 175.6 [lb_av] [facility] temperature 2022-03-06 11:40:00 97.5 [degF] Common S pirit [facility] bmi 2022-03-06 11:40:00 28.77 kg/m2 Common S [facility] oximetry 2022-03-06 11:40:00 97 % Common [facility] respiratory rate 2022-03-06 11:40:00 16 /min Comm on [facility] blood pressure 2022-03-06 11:40:00 110 mm[Hg] Common [facility] - systolic [facility] blood pressure 2022-03-06 11:40:00 50 mm[Hg] Common [facility] - diastolic [facility] height 2022-02-02 11:20:00 Common S pirit [facility] weight 2022-02-02 11:20:00 178.6 [lb_av] [facility] temperature 2022-02-02 11:20:00 98.0 [degF] Common S pirit [facility] bmi 2022-02-02 11:20:00 29.27 kg/m2 Common S pirit [facility] oximetry 2022-02-02 11:20:00 99 % Common [facility] respiratory rate 2022-02-02 11:20:00 16 /min Comm on [facility] blood pressure 2022-02-02 11:20:00 136 mm[Hg] Common [facility] systolic [facility] blood pressure 2022-02-02 11:20:00 59 mm[Hg] Common [facility] - diastolic [facility] height 2021-10-26 11:40:00 65 [in_i] Common [facility] weight 2021-10-26 11:40:00 177 [lb_av] [facility] temperature 2021-10-26 11:40:00 97.6 [degF] [facility] bmi 2021-10-26 11:40:00 29.45 kg/m2 [facility] oximetry 2021-10-26 11:40:00 98 % Common [facility] respiratory rate 2021-10-26 11:40:00 16 /min Comm on [facility] height 2021-09-05 13:00:00 65 [in_i] Common [facility] weight 2021-09-05 13:00:00 177 [lb_av] [facility] temperature 2021-09-05 13:00:00 97.1 [degF] [facility] bmi 2021-09-05 13:00:00 29.45 kg/m2 [facility] oximetry 2021-09-05 13:00:00 100 % [facility] respiratory rate 2021-09-05 13:00:00 16 /min Comm on [facility] blood pressure 2021-09-05 13:00:00 138 mm[Hg] Common [facility] systolic [facility] blood pressure 2021-09-05 13:00:00 74 mm[Hg] Common [facility] - diastolic [facility] Procedures This patient has no known procedures. Encounters Start End Encounter Admission Attending Care Care Encounter Source Date/Time Date/Time Type Type Clinicians Facility Department ID 2021-08-24 Outpatient Fredy STNAS STLMLC [id number] Common 13:42:10 Lyndsey [id number] [facility] 2021-08-24 Outpatient Fredy, STROMANLC STLMLC [id number] Common 13:02:45 Lyndsey [id number] [facility] 2021-08-24 Outpatient Fredy STROMANLC STLMLC [id number] Common 10:58:39 Lyndsey [id number] [facility] 2022-09-06 2022-09-06 OFFICE STLMLC STLMLC [id number] Co mmon 00:00:00 00:00:00 VISIT [facility] PT [facility] LEVEL 4 [facility] 2022-07-28 2022-07-28 (TEL) STLMLC STLMLC [id number] Co mmon 00:00:00 00:00:00 [facility] 2022-05-08 2022-05-08 (TEL) STLMLC STLMLC [id number] Co mmon 00:00:00 00:00:00 [facility] 2022-04-27 2022-04-27 (TEL) STLMLC STLMLC [id number] Co mmon 00:00:00 00:00:00 [facility] 2022-04-26 2022-04-26 OFFICE STLMLC STLMLC [id number] Co mmon 00:00:00 00:00:00 VISIT EST Spir it PT LEVEL 3 [facility] 2022-03-06 2022-03-06 OFFICE STLMLC STLMLC [id number] Co mmon 00:00:00 00:00:00 VISIT EST Spir it PT LEVEL 3 [facility] 2022-02-02 2022-02-02 OFFICE STLMLC STLMLC [id number] Co mmon 00:00:00 00:00:00 VISIT EST Spir it PT LEVEL 3 [facility] 2022-01-06 2022-01-06 (TEL) STLMLC STLMLC [id number] Co mmon 00:00:00 00:00:00 [facility] 2022-01-06 2022-01-06 OFFICE STLMLC STLMLC [id number] Co mmon 00:00:00 00:00:00 VISIT Spirit [facility] - [facility] LEVEL 1 [facility] 2021-11-24 2021-11-24 OFFICE STLMLC STLMLC [id number] Co mmon 00:00:00 00:00:00 VISIT [facility] - [facility] LEVEL 1 [facility] 2021-10-26 2021-10-26 OFFICE STLMLC STLMLC [id number] Co mmon 00:00:00 00:00:00 VISIT EST Spir it PT LEVEL 3 - [facility] 2021-10-03 2021-10-03 (TEL) STLMLC STLMLC [id number] Co mmon 00:00:00 00:00:[address] [facility] 2021-09-16 2021-09-16 OFFICE STLMLC STLMLC [id number] Co mmon 00:00:00 00:00:00 VISIT [facility] PT - [facility] LEVEL 1 [facility] 2021-09-06 2021-09-06 (TEL) STLMLC STLMLC [id number] Co mmon 00:00:00 00:00:00 [facility] - [facility] 2021-09-06 2021-09-06 OFFICE STLMLC STLMLC [id number] Co mmon 00:00:00 00:00:00 VISIT [facility] PT - [facility] LEVEL 1 [facility] 2021-09-05 2021-09-05 OFFICE STLMLC STLMLC [id number] Co mmon 00:00:00 00:00:00 VISIT EST Spir it PT LEVEL 3 - [facility] 2021-08-01 2021-08-01 (TEL) STLMLC STLMLC [id number] Co mmon 00:00:00 00:00:00 [facility] - [facility] 2021-08-01 2021-08-01 OFFICE STLMLC STLMLC [id number] Co mmon 00:00:00 00:00:00 VISIT Spirit EST[facility] PT - [facility] LEVEL 1 [facility] 2021-07-14 2021-07-14 PREV VISIT STLMLC STLMLC [id number] Common 00:00:00 00:00:00 EST AGE [facility] 40-63 [facility] 2021-03-03 2021-03-03 Outpatient STLMLC STLMLC [id number] Common 00:00:00 00:00:00 [facility] 2021-03-03 2021-03-03 Outpatient STLMLC STLMLC [id number] Common 00:00:00 00:00:00 [facility] 2020-12-31 2020-12-31 Outpatient STLMLC STLMLC [id number] Common 00:00:00 00:00:00 [facility] 2020-12-29 2020-12-29 Outpatient STLMLC STLMLC [id number] Common 00:00:00 00:00:00 [facility] 2020-12-08 2020-12-08 Outpatient STLMLC STLMLC [id number] Common 00:00:00 00:00:00 [facility] 2020-09-29 2020-09-29 Outpatient STLMLC STLMLC [id number] Common 00:00:00 00:00:00 [facility] 2020-08-12 2020-08-12 Outpatient STLMLC STLMLC [id number] Common 00:00:00 00:00:00 [facility] 2020-08-12 2020-08-12 Outpatient STLMLC STLMLC [id number] Common 00:00:00 00:00:00 [facility] 2020-07-21 2020-07-21 Outpatient STLMLC STLMLC [id number] Common 00:00:00 00:00:00 [facility] 2020-04-20 2020-04-20 Outpatient STLMLC STLMLC [id number] Common 00:00:00 00:00:00 [facility] 2020-02-16 2020-02-16 [facility] [id number] Common 13:00:00 13:00:00 [facility] 2019-10-28 2019-10-28 [facility] [id number] Common 13:00:00 13:00:[address] [facility] 2019-10-20 2019-10-20 [facility] [id number] Common 15:56:00 15:56:[address] [facility] 2019-09-15 2019-09-15 [facility] [id number] Common 13:00:00 13:00:[address] [facility] 2019-08-05 2019-08-05 [facility] [id number] Common 13:00:00 13:00:[address] [facility] 2019-07-16 2019-07-16 [facility] [id number] Common 11:40:00 11:40:[address] [facility] 2019-07-02 2019-07-02 [facility] [id number] Common 13:20:00 13:20:[address] [facility] 2019-06-09 2019-06-09 [facility] [id number] Common 16:33:00 16:33:[address] [facility] 2019-05-16 2019-05-16 [facility] [id number] Common 15:00:00 15:00:[address] [facility] 2019-05-08 2019-05-08 [facility] [id number] Common 08:00:00 08:00:[address] [facility] 2019-02-11 2019-02-11 [facility] [id number] Common 09:30:00 09:30:00 t Specialty/U Sp dylan Specialty rology - [facility] 2019-01-03 2019-01-03 [facility] [id number] Common 11:20:00 11:20:[address] [facility] 2018-12-03 2018-12-03 [facility] [id number] Common 08:21:00 08:21:[address] [facility] 2018-10-21 2018-10-21 [facility] [id number] Common 14:00:00 14:00:[address] [facility] 2018-10-18 2018-10-18 [facility] [id number] Common 10:39:00 10:39:[address] [facility] 2018-10-17 2018-10-17 [facility] [id number] Common 08:18:00 08:18:[address] [facility] 2018-10-03 2018-10-03 [facility] [id number] Common 11:00:00 11:00:[address] [facility] 2018-09-25 2018-09-25 [facility] [id number] Common 09:19:00 09:19:[address] [facility] 2018-08-05 2018-08-05 [facility] [id number] Common 11:30:00 11:30:[address] [facility] 2018-05-08 2018-05-08 Outpatient STLMLC STLMLC [id number] Common 00:00:00 00:00:00 [facility] 2017-11-06 2017-11-06 [facility] [id number] Common 08:00:00 08:00:[address] [facility] Results Test Description Test Time Test Comments Results Result Comments Source SARS-COV-2(COVID19),NAAT 2021-09-06 00:00:00 Test Item Value Reference Range Interpretation Comme nts SARS-CoV-2 INTERPRETATION (test code = 30462-2) NEGATIVE SEE NO TE SOURCE (test code = 96769-2) NOT SPECIFIED SARS-COV-2(COVID19),[id number] 00:00:00 Test Item Value Reference Range Interpretation Comments SARS-CoV-2 INTERPRETATION (test POSITIVE SEE NOTE code = 92451-2) SOURCE (test code = 88909-5) NOT SPECIFIED Hip Left 2 ViewHip Left 2 ViewRibs RightRibs Right
[2022-09-07] MEDS ORDERED: CYCLOBENZAPRINE 10 MG TAB ONE (18:37)
[2022-09-07] MEDS ORDERED: KETOROLAC 30 MG/ML INJ ONE (18:38)
[2022-09-07] MEDS ORDERED: HYDROCODONE/APAP 10/325 TAB ONE (18:38)
--- NOTE | 2022-09-07 19:10 | ER ---
Nurse's Notes [facility] Name: Amarilys Posey Age: 52 yrs Sex: Female : 1970 Arrival Date: 09/07/2022 Time: 17:46 Bed 20 Private MD: Diagnosis: Low back pain Presentation: 09/07 17:54 Chief complaint: Patient states: "I started having really bad back pain yesterday after mb9 sitting down for lunch. Its in my lower back in the middle". Coronavirus screen: Vaccine status: Patient reports receiving the 2nd dose of the covid vaccine. Ebola Screen: No symptoms or risks identified at this time. Initial Sepsis Screen: Does the patient meet any 2 criteria? No. Patient's initial sepsis screen is negative. Initial Sepsis Screen: Does the patient have a suspected source of infection? No. Patient's initial sepsis screen is negative. Risk Assessment: Do you want to hurt yourself or someone else? Patient reports no desire to harm self or others. Onset of symptoms was September 06, 2022. 17:54 Method Of Arrival: Ambulatory mb9 17:54 Acuity: JAVIER 4 mb9 Historical: - Allergies: 17:57 No Known Allergies; mb9 - Home Meds: 17:57 Metoprolol Tartrate Oral [Active]; mb9 - PMHx: 17:57 Diabetes - NIDDM; Hypertension; Chronic back pain; mb9 - Immunization history:: Adult Immunizations up to date. - Social history:: Smoking status: Patient denies any tobacco usage or history of. - Family history:: not pertinent. Screenin:09 [facility] ED Fall Risk Assessment (Adult) Impaired Gait Yes (1 pt) Mobility Assist ll1 Device Used Yes (1 pt) Score/Fall Risk Level 0 - 2 = Low Risk Oriented to surroundings, Maintained a safe environment, Educated pt \\T\\ family on fall prevention, incl call for assistance when getting out of bed, Hourly rounding (assess needs \\T\\ fall precautionary measures) done. Abuse screen: Denies threats or abuse. Nutritional screening: No deficits noted. Tuberculosis screening: No symptoms or risk factors identified. Assessment: 18:08 General: Appears uncomfortable, Behavior is calm, cooperative, appropriate for age. ll1 Pain: Complains of pain in back Quality of pain is described as aching, throbbing. Neuro: No deficits noted. Level of Consciousness is awake, alert, obeys commands. Musculoskeletal: Circulation, motion, and sensation intact. Capillary refill < 3 seconds, Reports pain in low back. 18:45 Reassessment: No changes from previously documented assessment. Patient and/or family ll1 updated on plan of care and expected duration. Pain level reassessed. Patient is alert, oriented x 3, equal unlabored respirations, skin warm/dry/pink. 19:24 Reassessment: Patient appears in no apparent distress at this time. Patient and/or aa9 family updated on plan of care and expected duration. Pain level reassessed. Patient is alert, oriented x 3, equal unlabored respirations, skin warm/dry/pink. Patient states symptoms have improved. Vital Signs: 17:54 BP 145 / 85; Pulse 107; Resp 20; Temp 98.2; Pulse Ox 100% ; Weight 80.74 kg; Height 5 mb9 ft. 5 in. (165.10 cm); Pain 10/10; 17:54 Body Mass Index 29.62 (80.74 kg, 165.10 cm) 9 ED Course: 17:46 Patient arrived in ED. as 17:57 Triage completed. mb9 17:57 Arm band placed on. mb9 17:59 Thang Briones, RN is Primary Nurse. ll1 17:59 Patient placed in an exam room, on a stretcher. ll1 18:09 Patient has correct armband on for positive identification. Bed in low position. Call ll1 light in reach. Cardiac monitoring not applicable on this patient. 18:13 Rick Jacobson MD is Attending Physician. rt 19:24 No provider procedures requiring assistance completed. Patient did not have IV access aa9 during this emergency room visit. Administered Medications: 18:43 Drug: [place] (HYDROcodone-acetaminophen) 10 mg-325 mg 1 tabs {Note: Pain 10/10 RASS 0.} ll1 Route: PO; 18:43 Drug: Ketorolac 30 mg {Note: pain 10/10 RASS 0.} Route: IM; Site: right gluteus; ll1 18:44 Drug: Flexeril (cyclobenzaprine) 10 mg Route: PO; ll1 Medication: 18:09 VIS not applicable for this client. ll1 Outcome: 19:09 Discharge ordered by . rt 19:24 Discharged to home ambulatory, with family. aa9 19:24 Condition: stable 19:24 Discharge instructions given to patient, family, Instructed on discharge instructions, follow up and referral plans. medication usage, Demonstrated understanding of instructions, follow-up care, medications, Prescriptions given X 1. 19:24 Patient left the ED. aa9 Signatures: Vane Suarez Lynsay, RN RN ll1 Daysi Boucher RN RN aa9 Destiny Evans RN RN mb9 Rick Jacobson MD MD rt Corrections: (The following items were deleted from the chart) 18:03 17:54 Acuity: JAVIER 3 mb9 mb9
--- NOTE | 2022-09-07 19:10 | EDPHYS ---
Physician Documentation [facility] Name: Amarilys Posey Age: 52 yrs Sex: Female : 1970 Arrival Date: 09/07/2022 Time: 17:46 Bed 20 Private MD: ED Physician Rick Jacobson HPI: 09/07 18:36 This 52 yrs old Female presents to ER via Ambulatory with complaints of Back rt Pain. 18:36 The patient presents with pain that is chronic. The symptoms are located in the low rt back. Onset: The symptoms/episode began/occurred yesterday. The pain does not radiate. Associated signs and symptoms: The patient has no apparent associated signs or symptoms. The problem was sustained Sitting. Severity of symptoms: At their worst the symptoms were moderate. Patient with chronic back pain presents to the ED with worsening of the lower back pain with sitting. Is not adequately relieved with Flexeril and Tylenol which typically works for her. She denies other acute complaints this time, pain is aching nature, nonradiating, no other aggravating elevating factors.. Historical: - Allergies: 17:57 No Known Allergies; mb9 - Home Meds: 17:57 Metoprolol Tartrate Oral [Active]; mb9 - PMHx: 17:57 Diabetes - NIDDM; Hypertension; Chronic back pain; mb9 - Immunization history:: Adult Immunizations up to date. - Social history:: Smoking status: Patient denies any tobacco usage or history of. - Family history:: not pertinent. ROS: 18:36 Constitutional: Negative for fever, chills, and weight loss, Cardiovascular: Negative rt for chest pain, palpitations, and edema, Respiratory: Negative for shortness of breath, cough, wheezing, and pleuritic chest pain, Abdomen/GI: Negative for abdominal pain, nausea, vomiting, diarrhea, and constipation, Skin: Negative for injury, rash, and discoloration, Neuro: Negative for headache, weakness, numbness, tingling, and seizure, Psych: Negative for depression, anxiety, suicide ideation, homicidal ideation, and hallucinations. 18:36 Back: Positive for pain at rest, pain with movement. Exam: 18:36 Constitutional: This is a well developed, well nourished patient who is awake, alert, rt and in no acute distress. Chest/axilla: Normal chest wall appearance and motion. Nontender with no deformity. No lesions are appreciated. Cardiovascular: Regular rate and rhythm with a normal S1 and S2. No gallops, murmurs, or rubs. Normal PMI, no JVD. No pulse deficits. Respiratory: Lungs have equal breath sounds bilaterally, clear to auscultation and percussion. No rales, rhonchi or wheezes noted. No increased work of breathing, no retractions or nasal flaring. Abdomen/GI: Soft, non-tender, with normal bowel sounds. No distension or tympany. No guarding or rebound. No evidence of tenderness throughout. Skin: Warm, dry with normal turgor. Normal color with no rashes, no lesions, and no evidence of cellulitis. MS/ Extremity: Pulses equal, no cyanosis. Neurovascular intact. Full, normal range of motion. Neuro: Awake and alert, GCS 15, oriented to person, place, time, and situation. Cranial nerves II-XII grossly intact. Motor strength 5/5 in all extremities. Sensory grossly intact. Cerebellar exam normal. Normal gait. Psych: Awake, alert, with orientation to person, place and time. Behavior, mood, and affect are within normal limits. 18:36 Back: Tenderness at the right SI joint, no step-offs.. Vital Signs: 17:54 BP 145 / 85; Pulse 107; Resp 20; Temp 98.2; Pulse Ox 100% ; Weight 80.74 kg; Height 5 mb9 ft. 5 in. (165.10 cm); Pain 10/10; 17:54 Body Mass Index 29.62 (80.74 kg, 165.10 cm) mb9 MDM: 18:15 Patient medically screened. rt 19:11 Differential diagnosis: Chronic back pain, cauda equina syndrome, spinal epidural rt abscess. Data reviewed: vital signs, nurses notes. I considered the following discharge prescriptions or medication management in the emergency department Medications were administered in the Emergency Department. See MAR. Test considered but Not performed: MRI: Chronic pain, stable vital signs, no neurodeficits, bowel, bladder incontinence, MRI not indicated. Care significantly affected by the following chronic conditions: Chronic back pain. Counseling: I had a detailed discussion with the patient and/or guardian regarding: the historical points, exam findings, and any diagnostic results supporting the discharge/admit diagnosis, the need for outpatient follow up. Response to treatment: the patient's symptoms have markedly improved after treatment. Special discussion: I discussed with the patient/guardian in detail that at this point there is no indication for admission to the hospital. It is understood, however, that if the symptoms persist or worsen the patient needs to return immediately for re-evaluation. Administered Medications: 18:43 Drug: [place] (HYDROcodone-acetaminophen) 10 mg-325 mg 1 tabs {Note: Pain 10/10 RASS 0.} ll1 Route: PO; 18:43 Drug: Ketorolac 30 mg {Note: pain 10/10 RASS 0.} Route: IM; Site: right gluteus; ll1 18:44 Drug: Flexeril (cyclobenzaprine) 10 mg Route: PO; ll1 Disposition Summary: 09/07/22 19:09 Discharge Ordered Location: Home rt Problem: chronic rt Symptoms: have improved rt Condition: Stable rt Diagnosis - Low back pain rt Followup: rt - With: Private Physician - When: 2 - 3 days - Reason: Discharge Instructions: - Discharge Summary Sheet rt - Chronic Back Pain rt Forms: - Medication Reconciliation Form rt - Thank You Letter rt - Antibiotic Education rt - Prescription Opioid Use rt Prescriptions: - Lidoderm 5 % Topical adhesive patch,medicated - apply 1 patch by TRANSDERMAL route once daily; 10 patch; Refills: 0, Product rt Selection Permitted Signatures: Thang Briones, RN RN ll1 Destiny Evans, RN RN mb9 Rick Jacobson MD MD rt
[2022-09-07 19:28] VITALS: BP 145/85; TEMP 98.2; O2SAT 100
== END 2022-09-07 19:24 | disposition home or self-care (01) ==
LOC: ER 17:45
DX: M54.50 Low back pain, unspecified (principal); E11.9 Type 2 diabetes mellitus without complications; I10 Essential (primary) hypertension
CPT/HCPCS: 96372; 99283

== ENCOUNTER 2022-09-30 19:36 | Emergency (ER) | payer BC ==
--- OUTSIDE RECORDS SUMMARY | 2022-09-30 19:41 | XMS REPORT | Continuity of Care Document ---
:[address] [facility] t Address [address] [place] [address] Care Team Providers Name Role Phone Lyndsey Daniel Attending Clinician Unavailable Payers Payer Name Policy Type Policy Number Effective Date Expiration Date S sudhirsamuel Blue [place] 6 [id number] Common Spiri t [facility] AETNA 53 [id number] 2020 [facility] 00:00:00 [facility] Problems Condition Condition Condition Status Onset Resolution Last Treating Co mments Source Name Details Category Date Date Treatment Clinician Date [id number] Left hip Problem Commo n pain [facility] [id number] Rt flank Problem Comm on pain [facility] [id number] Pain of Problem Commo n right Spirit thumb [facility] Seasonal Allergic Problem Commo n allergic rhinitis, Spiri t rhinitis seasonal [facility] Dysthymia Dysthymic Problem Com mon disorder [facility] Vitamin Vitamin Problem Common B12 B12 Spirit deficiency deficiency [facility] Vitamin D Vitamin D Problem Com mon deficiency deficiency Sp dylan [facility] [id number] Essential Problem Comm on hypertensi Spirit on [facility] Obesity Obesity Problem Common [facility] [id number] SVT Problem Common (sup[facility] [id number] Pure Problem Common hyperchole Spirit sterolemia - [facility] Chronic Chronic Problem Common fatigue fatigue [facility] syndrome [facility] [id number] Hypomagnes Problem Co mmon emia [facility] [id number] Reactive Problem Commo n depression [facility] [id number] 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 - [facility] spine Migraine Migraine Problem Commo n without without Spirit aura aura - [facility] [id number] Acute Problem Common midline Spirit low back - [facility]I pain with St right-side [facility] d sciatica [facility] Liver Abnormal Problem Common enzymes liver [facility] abnormal enzymes [facility] [id number] Uncontroll Problem Co mmon ed type 2 [facility] diabetes - [facility] mellitus [facility] hyperglyce [facility] [id number] Dennise Problem Common albicans [facility] infection [facility] [id number] Sciatica Problem Commo n of right [facility] side [facility] Allergies, Adverse Reactions, Alerts Allergy Allergy Status Severity Reaction(s) Onset Inactive Treating Comm ents Source Name Type Date Date Clinician tramadol tramadol Active vomiting Comm on [facility] Social History Social Habit Start Date Stop Date Quantity Comments Source History of Tobacco Use Co mmon [facility] Sex Assigned At Com mon [facility] Smoking Status Start Date Stop Date Source Never Smoker Common [facility] Medications Ordered Filled Start Stop Current Ordering [...] 00:00: ER 50 MG 00 Metoprolol Metoprolol 0 No 1{table QD Metoprolol Succinate Succinate 2-07 [...] 15mg 15mg 0-18 Spirit 00:00: - [facility] Ketorolac Ketorolac 2018- No 60mg Com mon 15mg 15mg 0-18 Spirit 00:00: - [facility] Ketorolac Ketorolac 2018- No 60mg Com mon 15mg 15mg 0-18 Spirit 00:00: - [facility] Ketorolac Ketorolac 2018- No 60mg Com mon 15mg 15mg 0-18 Spirit 00:00: - [facility] Ketorolac Ketorolac 2019- No 60mg Com mon 15mg 15mg 0-18 Spirit 00:00: - [facility] Ketorolac Ketorolac 2018- No 60mg Com mon 15mg 15mg 0-18 Spirit 00:00: - [facility] Ketorolac Ketorolac 2018- No 60mg Com mon 15mg 15mg 0-18 Spirit 00:00: - [facility] Ketorolac Ketorolac 2019- No 60mg Com mon 15mg 15mg 0-18 Spirit 00:00: - [facility] Ketorolac Ketorolac 2019- No 60mg Com mon 15mg 15mg 0-18 Spirit 00:00: - [facility] Ketorolac Ketorolac 2019- No 60mg Com mon 15mg 15mg 0-18 Spirit 00:00: - [facility] Ketorolac Ketorolac 2018- No 60mg Com mon 15mg 15mg 0-18 Spirit 00:00: - [facility] Ketorolac Ketorolac 2019- No 60mg Com mon 15mg 15mg 0-18 Spirit 00:00: - [facility] Ketorolac Ketorolac 2019-1 No 60mg Com mon 15mg 15mg 0-18 Spirit 00:00: - [facility] Kenalog Kenalog 2019-0 No 40mg Common (Triamcinol (Triamcinol 3-07 S pirit one) one) 00:00: - [facility] Kenalog Kenalog 2019-0 No 40mg Common (Triamcinol (Triamcinol 3-07 S pirit one) one) 00:00: - [facility] Kenalog Kenalog 2019-0 No 40mg Common (Triamcinol (Triamcinol 3-07 S pirit one) one) 00:00: - [facility] Kenlindsey Kenalog 2019-0 No 40mg Common (Triamcinol (Triamcinol 3-07 S pirit one) one) 00:00: - [facility] Kenlindsey Kenalog 2019-0 No 40mg Common (Triamcinol (Triamcinol 3-07 S pirit one) one) 00:00: - [facility] Kenalog Kenalog 2019-0 No 40mg Common (Triamcinol (Triamcinol 3-07 S pirit one) one) 00:00: - [facility] Kenalog Kenalog 2019-0 No 40mg Common (Triamcinol (Triamcinol 3-07 S pirit one) one) 00:00: - [facility] Kenalog Kenalog 2019-0 No 40mg Common (Triamcinol (Triamcinol 3-07 S pirit one) one) 00:00: - [facility] Kenalog Kenalog 2019-0 No 40mg Common (Triamcinol (Triamcinol 3-07 S pirit one) one) 00:00: - [facility] Kenalog Kenalog 2019-0 No 40mg Common (Triamcinol (Triamcinol 3-07 S pirit one) one) 00:00: - [facility] Kenalog Kenalog 2019-0 No 40mg Common (Triamcinol (Triamcinol 3-07 S pirit one) one) 00:00: - [facility] Venessa Kenlindsey 2018-0 No 40mg Common (Triamcinol (Triamcinol 3-07 S pirit one) one) 00:00: - [facility] Venessa Clifford 0 No 40mg Common (Triamcinol (Triamcinol 3-07 S pirit one) one) 00:00: - [facility] 00 [facility] Lisinopril Lisinopril Yes Lyndsey TAKE 1 [place] TABLET BY Spirit MOUTH - [facility] EVERY DAY [facility] Vitamin D Vitamin D Yes Lyndsey 1 capsule Common (Ergocalcif (Ergocalcif [place] Spirit cornel) cornel) [facility] Duexis Duexis Yes Lyndsey 1 tablet Common [place] [facility] Metformin Metformin Yes Lyndsey 1 tablet Common HCl HCl Rock with a Spirit meal - [facility] Zyrtec Zyrtec Yes Lyndsey 1 tablet Common Allergy Allergy [facility] Crestor Crestor Yes Lyndsey 1 tablet Comm on [place] Spirit [facility] Trulicity Trulicity Yes Lyndsey as Comm on [place] directed [facility] Vitamin D Vitamin D No 1{capsu QD [...] QD Vitamin D (Ergocalcif (Ergocalcif le} (Ergocalci ocrnel) 50 cornel) 50 ferol) 50 MCG (2000 [...] (Tdap) Boostrix (Tdap) 2021-11-24 Completed Comm on [facility] 17:37:00 [facility] Boostrix (Tdap) Boostrix (Tdap) 2021-11-24 Completed Comm on [facility] 17:37:00 [facility] Boostrix (Tdap) Boostrix (Tdap) 2021-11-24 Completed Comm on [facility] 17:37:00 [facility] Boostrix (Tdap) Boostrix (Tdap) 2021-11-24 Completed Comm on [facility] 17:37:00 [facility] Boostrix (Tdap) Boostrix (Tdap) 2021-11-24 Completed Comm on [facility] 17:37:00 [facility] Boostrix (Tdap) Boostrix (Tdap) 2021-11-24 Completed Comm on Spirit 17:37:00 - [facility] Boostrix (Tdap) Boostrix (Tdap) 2021-11-24 Completed Comm on Spirit 17:37:00 - [facility] Boostrix (Tdap) Boostrix (Tdap) 2021-11-24 Completed Comm on Spirit 17:37:00 [facility] Boostrix (Tdap) Boostrix (Tdap) 2021-11-24 Completed Comm on Spirit 17:37:00 [facility] Boostrix (Tdap) Boostrix (Tdap) 2021-11-24 Completed Comm on [facility] 17:37:00 [facility] Boostrix (Tdap) Boostrix (Tdap) 2021-11-24 Completed Comm on [facility] 17:37:00 [facility] Vital Signs Vital Name Observation Time Observation Value Comments Source height 2022-09-06 11:40:00 65.5 [in_i] [facility] weight 2022-09-06 11:40:00 176.6 [lb_av] [facility] temperature 2022-09-06 11:40:00 97.5 [degF] [facility] bmi 2022-09-06 11:40:00 28.94 kg/m2 [facility] oximetry 2022-09-06 11:40:00 97 % [facility] respiratory rate 2022-09-06 11:40:00 18 /min Comm on [facility] blood pressure 2022-09-06 11:40:00 152 mm[Hg] Common [facility] systolic [facility] blood pressure 2022-09-06 11:40:00 76 mm[Hg] Common [facility] diastolic [facility] height 2022-04-26 11:40:00 65.5 [in_i] Common [facility] weight 2022-04-26 11:40:00 181.8 [lb_av] [facility] temperature 2022-04-26 11:40:00 97.2 [degF] Common S pirit [facility] bmi 2022-04-26 11:40:00 29.79 kg/m2 Common S pirit [facility] oximetry 2022-04-26 11:40:00 98 % Common S pirit [facility] respiratory rate 2022-04-26 11:40:00 16 /min Comm on [facility] blood pressure 2022-04-26 11:40:00 139 mm[Hg] Common [facility] - systolic [facility] blood pressure 2022-04-26 11:40:00 68 mm[Hg] Common [facility] - diastolic [facility] height 2022-03-06 11:40:00 Common S pirit [facility] weight 2022-03-06 11:40:00 175.6 [lb_av] [facility] temperature 2022-03-06 11:40:00 97.5 [degF] Common pirit [facility] bmi 2022-03-06 11:40:00 28.77 kg/m2 [facility] oximetry 2022-03-06 11:40:00 97 % Common [facility] respiratory rate 2022-03-06 11:40:00 16 /min Comm on [facility] blood pressure 2022-03-06 11:40:00 110 mm[Hg] Common [facility] - systolic [facility] blood pressure 2022-03-06 11:40:00 50 mm[Hg] Common [facility] - diastolic [facility] height 2022-02-02 11:20:00 Common S pirit [facility] weight 2022-02-02 11:20:00 178.6 [lb_av] [facility] temperature 2022-02-02 11:20:00 98.0 [degF] Common S pirit [facility] bmi 2022-02-02 11:20:00 29.27 kg/m2 Common S pirit [facility] oximetry 2022-02-02 11:20:00 99 % Common [facility] respiratory rate 2022-02-02 11:20:00 16 /min Comm on [facility] blood pressure 2022-02-02 11:20:00 136 mm[Hg] Common [facility] systolic [facility] blood pressure 2022-02-02 11:20:00 59 mm[Hg] Common [facility] - diastolic [facility] height 2021-10-26 11:40:00 65 [in_i] Common [facility] weight 2021-10-26 11:40:00 177 [lb_av] [facility] temperature 2021-10-26 11:40:00 97.6 [degF] [facility] bmi 2021-10-26 11:40:00 29.45 kg/m2 [facility] oximetry 2021-10-26 11:40:00 98 % Common [facility] respiratory rate 2021-10-26 11:40:00 16 /min Comm on [facility] height 2021-09-05 13:00:00 65 [in_i] Common [facility] weight 2021-09-05 13:00:00 177 [lb_av] [facility] temperature 2021-09-05 13:00:00 97.1 [degF] [facility] bmi 2021-09-05 13:00:00 29.45 kg/m2 [facility] oximetry 2021-09-05 13:00:00 100 % [facility] respiratory rate 2021-09-05 13:00:00 16 /min Comm on [facility] blood pressure 2021-09-05 13:00:00 138 mm[Hg] Common [facility] systolic [facility] blood pressure 2021-09-05 13:00:00 74 mm[Hg] Common [facility] - diastolic [facility] Procedures This patient has no known procedures. Encounters Start End Encounter Admission Attending Care Care Encounter Source Date/Time Date/Time Type Type Clinicians Facility Department ID 2022-09-22 Outpatient Fredy, STLMLC STLMLC [id number] Common 10:19:00 Lyndsey [id number] [facility] 2021-08-24 Outpatient Fredy, STLMLC STLMLC [id number] Common 13:42:10 Lyndsey [id number] [facility] 2021-08-24 Outpatient Fredy, STLMLC STLMLC [id number] Common 13:02:45 Lyndsey [id number] [facility] 2021-08-24 Outpatient Fredy, STLMLC STLMLC [id number] Common 10:58:39 Lyndsey [id number] [facility] 2022-09-06 2022-09-06 OFFICE STLMLC STLMLC [id number] Co mmon 00:00:00 00:00:00 VISIT [facility] 2022-07-28 2022-07-28 (TEL) STLMLC STLMLC [id number] Co mmon 00:00:00 00:00:00 [facility] 2022-05-08 2022-05-08 (TEL) STLMLC STLMLC [id number] Co mmon 00:00:00 00:00:00 [facility] 2022-04-27 2022-04-27 (TEL) STLMLC STLMLC [id number] Co mmon 00:00:00 00:00:00 [facility] 2022-04-26 2022-04-26 OFFICE STLMLC STLMLC [id number] Co mmon 00:00:00 00:00:00 VISIT EST Spir it PT LEVEL 3 [facility] 2022-03-06 2022-03-06 OFFICE STLMLC STLMLC [id number] Co mmon 00:00:00 00:00:00 VISIT EST Spir it PT LEVEL 3 [facility] 2022-02-02 2022-02-02 OFFICE STLMLC STLMLC [id number] Co mmon 00:00:00 00:00:00 VISIT EST Spir it PT LEVEL 3 [facility] 2022-01-06 2022-01-06 (TEL) STLMLC STLMLC [id number] Co mmon 00:00:00 00:00:00 Spirit - [facility] 2022-01-06 2022-01-06 OFFICE STLMLC STLMLC [id number] Co mmon 00:00:00 00:00:00 VISIT Spirit ESTAB PT - CHI LEVEL 1 [facility] 2021-11-24 2021-11-24 OFFICE STLMLC STLMLC [id number] Co mmon 00:00:00 00:00:00 VISIT Spirit ESTAB PT - CHI LEVEL 1 [facility] 2021-10-26 2021-10-26 OFFICE STLMLC STLMLC [id number] Co mmon 00:00:00 00:00:00 VISIT EST Spir it PT LEVEL 3 - [facility] 2021-10-03 2021-10-03 (TEL) STLMLC STLMLC [id number] Co mmon 00:00:00 00:00:00 [facility] 2021-09-16 2021-09-16 OFFICE STLMLC STLMLC [id number] Co mmon 00:00:00 00:00:00 VISIT [facility] ESTAB PT - CHI LEVEL 1 [facility] 2021-09-06 2021-09-06 (TEL) STLMLC STLMLC [id number] Co mmon 00:00:00 00:00:00 [facility] 2021-09-06 2021-09-06 OFFICE STLMLC STLMLC [id number] Co mmon 00:00:00 00:00:00 VISIT Spirit ESTAB PT - CHI LEVEL 1 [facility] 2021-09-05 2021-09-05 OFFICE STLMLC STLMLC [id number] Co mmon 00:00:00 00:00:00 VISIT EST Spir it PT LEVEL 3 - [facility] 2021-08-01 2021-08-01 (TEL) STLMLC STLMLC [id number] Co mmon 00:00:00 00:00:00 Spirit [facility] 2021-08-01 2021-08-01 OFFICE STLMLC STLMLC [id number] Co mmon 00:00:00 00:00:00 VISIT [facility] PT - [facility] LEVEL 1 [facility] 2021-07-14 2021-07-14 PREV VISIT STLMLC STLMLC [id number] Common 00:00:00 00:00:00 EST AGE Kit 40-64 [facility] 2021-03-03 2021-03-03 Outpatient STLMLC STLMLC [id number] Common 00:00:00 00:00:00 [facility] 2021-03-03 2021-03-03 Outpatient STLMLC STLMLC [id number] Common 00:00:00 00:00:00 [facility] 2020-12-31 2020-12-31 Outpatient STLMLC STLMLC [id number] Common 00:00:00 00:00:00 [facility] 2020-12-29 2020-12-29 Outpatient STLMLC STLMLC [id number] Common 00:00:00 00:00:00 [facility] 2020-12-08 2020-12-08 Outpatient STLMLC STLMLC [id number] Common 00:00:00 00:00:00 [facility] 2020-09-29 2020-09-29 Outpatient STLMLC STLMLC [id number] Common 00:00:00 00:00:00 [facility] 2020-08-12 2020-08-12 Outpatient STLMLC STLMLC [id number] Common 00:00:00 00:00:00 [facility] 2020-08-12 2020-08-12 Outpatient STLMLC STLMLC [id number] Common 00:00:00 00:00:00 [facility] 2020-07-21 2020-07-21 Outpatient STLMLC STLMLC [id number] Common 00:00:00 00:00:00 [facility] 2020-04-20 2020-04-20 Outpatient STLMLC STLMLC [id number] Common 00:00:00 00:00:00 [facility] 2020-02-16 2020-02-16 [facility] [id number] Common 13:00:00 13:00:[address] [facility] 2019-10-28 2019-10-28 [facility] [id number] Common 13:00:00 13:00:[address] [facility] 2019-10-20 2019-10-20 [facility] [id number] Common 15:56:00 15:56:[address] [facility] 2019-09-15 2019-09-15 [facility] [id number] Common 13:00:00 13:00:[address] [facility] 2019-08-05 2019-08-05 [facility] [id number] Common 13:00:00 13:00:[address] [facility] 2019-07-16 2019-07-16 [facility] [id number] Common 11:40:00 11:40:[address] [facility] 2019-07-02 2019-07-02 [facility] [id number] Common 13:20:00 13:20:[address] [facility] 2019-06-09 2019-06-09 [facility] [id number] Common 16:33:00 16:33:[address] [facility] 2019-05-16 2019-05-16 [facility] [id number] Common 15:00:00 15:00:[address] [facility] 2019-05-08 2019-05-08 [facility] [id number] Common 08:00:00 08:00:[address] [facility] 2019-02-11 2019-02-11 [facility] [id number] Common 09:30:00 09:30:00 t Specialty/U Sp dylan Specialty rology - [facility] 2019-01-03 2019-01-03 [facility] [id number] Common 11:20:00 11:20:[address] [facility] 2018-12-03 2018-12-03 [facility] [id number] Common 08:21:00 08:21:[address] [facility] 2018-10-21 2018-10-21 [facility] [id number] Common 14:00:00 14:00:[address] [facility] 2018-10-18 2018-10-18 [facility] [id number] Common 10:39:00 10:39:[address] [facility] 2018-10-17 2018-10-17 [facility] [id number] Common 08:18:00 08:18:[address] [facility] 2018-10-03 2018-10-03 [facility] [id number] Common 11:00:00 11:00:[address] [facility] 2018-09-25 2018-09-25 [facility] [id number] Common 09:19:00 09:19:[address] [facility] 2018-08-05 2018-08-05 [facility] [id number] Common 11:30:00 11:30:[address] [facility] 2018-05-08 2018-05-08 Outpatient STLMLC STLMLC [id number] Common 00:00:00 00:00:00 [facility] 2017-11-06 2017-11-06 [facility] [id number] Common 08:00:00 08:00:[address] [facility] Results Test Description Test Time Test Comments Results Result Comments Source SARS-COV-2(COVID19),NAAT 2021-09-06 00:00:00 Test Item Value Reference Range Interpretation Comme nts SARS-CoV-2 INTERPRETATION (test code = 99234-9) NEGATIVE SEE NO TE SOURCE (test code = 83675-7) NOT SPECIFIED SARS-COV-2(COVID19),[id number] 00:00:00 Test Item Value Reference Range Interpretation Comments SARS-CoV-2 INTERPRETATION (test POSITIVE SEE NOTE code = 05315-1) SOURCE (test code = 60143-2) NOT SPECIFIED Hip Left 2 ViewHip Left 2 ViewRibs RightRibs Right
[2022-09-30 20:30] LABS: Urine Blood 3+ (Negative); Urine Glucose Negative (Negative); Urine Protein Trace (Negative)
[2022-09-30 20:49] LABS: Transitional Epithelial <5 /HPF (None Seen); Urine Bacteria <20 /HPF (<20); Urine RBC <5 /HPF (None Seen); Urine WBC Clump Occasional /HPF (None Seen)
[2022-09-30 21:02] LABS: Absolute Lymphocytes (CBC) 2.7 K/uL (0.7-4.9); Hematocrit 41.4 % (36.0-45.0); Lymphocytes % 20.5 % (15.3-44.8); MCV 86.1 fL (80-100); MPV 8.2 fL (7.6-11.3); RBC Red Blood Cell Count 4.81 M/uL (3.86-4.86)
[2022-09-30 21:21] LABS: Albumin 3.9 g/dL (3.4-5.0); Bilirubin Total 0.4 mg/dL (0.2-1.0); Potassium 3.9 mmol/L (3.5-5.1); Protein, Total 7.7 g/dL (6.4-8.2)
--- NOTE | 2022-09-30 21:35 | RAD REPORT ---
EXAM DESCRIPTION: CT - Stone Protocol - 09/30/2022 9:18 pm CLINICAL HISTORY: left flank pain COMPARISON: Abdomen W Contrast dated 05/10/2022; Abdomen Pelvis W Contrast dated 12/21/2018 TECHNIQUE: Thin cut axial CT imaging of the abdomen and pelvis was performed without IV contrast. Mu ltiplanar reformats were generated and reviewed. All CT scans are performed using dose optimization technique as appropriate and may include automated exposure control or mA/KV adjustment according to patient size. FINDINGS: No suspicious findings in the lung bases. The liver, spleen, and pancreas show no suspicious findings. Gallbladder is not optimally distended l imiting evaluation. Suggestion of mild gallbladder sludge. No evidence of intra or extrahepatic bilia ry ductal dilation. Symmetric renal contour, without suspicious parenchymal findings within limits of noncontrast techniq ue. However, there is mild left hydroureter and mild left periureteric camp pericystic fat stranding. No hydronephrosis. No evidence of obstructing calculi. No dilated bowel loops or bowel wall thickening. No free air, free fluid or inflammatory stranding. N o hernia, mass or bulky lymphadenopathy. The urinary bladder is without significant finding. No suspicious bony findings. IMPRESSION: Mild left hydroureter with periureteric fat stranding. Mild pericystic fat stranding. No obstructing calculi. Findings could relate to a recently passed left-sided calculus versus ascending infection. Please correlate clinically and with urinalysis results. The findings were communicated to Irvin Page on 09/30/2022 at 21:29 hours.
--- NOTE | 2022-09-30 22:41 | ER ---
Nurse's Notes [facility] Name: Amarilys Posey Age: 52 yrs Sex: Female : 1970 Arrival Date: 09/30/2022 Time: 19:46 Bed 20 Private MD: Diagnosis: Pyelonephritis acute Presentation: 09/30 19:48 Chief complaint: Patient states: My left side of my back hurts, kind of where my kidney kd3 is. The pain started this morning. I came in here about a month ago for my back but this is different. I am pretty sure it is my kidney. Coronavirus screen: Vaccine status: Patient reports receiving the 2nd dose of the covid vaccine. Ebola Screen: No symptoms or risks identified at this time. Initial Sepsis Screen: Does the patient meet any 2 criteria? No. Patient's initial sepsis screen is negative. Does the patient have a suspected source of infection? No. Patient's initial sepsis screen is negative. Risk Assessment: Do you want to hurt yourself or someone else? Patient reports no desire to harm self or others. Onset of symptoms was September 30, 2022. 19:48 Method Of Arrival: Ambulatory kd3 19:48 Acuity: JAVIER 3 kd3 Triage Assessment: 19:53 General: Appears uncomfortable, Behavior is calm, cooperative. Pain: Complains of pain kd3 in left low back. Neuro: Level of Consciousness is awake, alert, obeys commands, Oriented to person, place, time, situation. Musculoskeletal: Circulation, motion, and sensation intact. 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 - Social history:: Smoking status: Patient denies any tobacco usage or history of. Screenin:35 [facility] ED Fall Risk Assessment (Adult) History of falling in the last 3 months, ke1 including since admission No falls in past 3 months (0 pts) Confusion or Disorientation No (0 pts) Intoxicated or Sedated No (0 pts) Impaired Gait No (0 pts) Mobility Assist Device Used No (0 pt) Altered Elimination No (0 pt) Score/Fall Risk Level 0 - 2 = Low Risk. Abuse screen: Denies threats or abuse. Nutritional screening: No deficits noted. Tuberculosis screening: No symptoms or risk factors identified. Assessment: 23:40 Reassessment: Patient is alert, oriented x 3, equal unlabored respirations, skin ke1 warm/dry/pink. Patient states feeling better. Patient states symptoms have improved. Neuro: Level of Consciousness is awake, alert, Oriented to person, place, time, situation. Vital Signs: 19:48 BP 173 / 89; Pulse 91; Resp 19; Temp 98.7(O); Pulse Ox 98% on R/A; Weight 81.65 kg; kd3 Height 5 ft. 5 in. (165.10 cm); Pain 10/10; 23:40 BP 153 / 79; Pulse 87; Resp 17; Temp 98.6; Pulse Ox 97% ; Pain 0/10; ke1 19:48 Body Mass Index 29.95 (81.65 kg, 165.10 cm) kd3 ED Course: 19:46 Patient arrived in ED. es 19:51 Irvin Reyna PA is PHCP. cp 19:51 Wilfrid Knott MD is Attending Physician. cp 19:53 Triage completed. kd3 19:53 Arm band placed on left wrist. kd3 20:47 CBC with Diff Sent. kd3 20:47 CMP Sent. kd3 20:47 Lipase Sent. kd3 21:35 Que Cooper, RN is Primary Nurse. ke1 21:36 Patient has correct armband on for positive identification. ke1 23:10 Inserted saline lock: 20 gauge in right antecubital area, using aseptic technique. ke1 23:54 No provider procedures requiring assistance completed. IV discontinued. ke1 Administered Medications: 23:11 Drug: Rocephin (cefTRIAXone) 2 grams Route: IV; Rate: calculated rate; Site: right ke1 antecubital; 23:11 Drug: fentaNYL (PF) 25 mcg Route: IVP; Site: right antecubital; ke1 23:20 Follow up: Response: Pain is decreased ke1 23:11 Drug: NS 0.9% 500 ml Route: IV; Rate: bolus; Site: right antecubital; ke1 Medication: 23:55 VIS not applicable for this client. ke1 Outcome: 22:39 Discharge ordered by . clarisse 23:54 Discharged to home ambulatory. ke1 23:54 Condition: good 23:54 Discharge instructions given to patient. 23:56 Patient left the ED. ke1 Signatures: Dorothy Gonzalez Corey, PA PA cp Doucette, Kyli, RN RN kd3 Que Cooper RN RN ke1
--- NOTE | 2022-09-30 22:41 | EDPHYS ---
Physician Documentation [facility] Name: Amarilys Posey Age: 52 yrs Sex: Female : 1970 Arrival Date: 09/30/2022 Time: 19:46 Bed 20 Private MD: ED Physician Wilfrid Knott HPI: 09/30 20:30 This 52 yrs old Female presents to ER via Ambulatory with complaints of Back cp Pain. 20:30 The patient presents with pain that is acute, with no known mechanism of injury. The cp symptoms are located in the left flank. Onset: The symptoms/episode began/occurred this morning. The pain does not radiate. Associated signs and symptoms: Pertinent positives: dysuria, Pertinent negatives: chest pain, constipation, fever, hematuria, numbness, vomiting, weakness. The problem was sustained possible kidney infection. 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 - Social history:: Smoking status: Patient denies any tobacco usage or history of. ROS: 20:35 Constitutional: Negative for body aches, chills, fever, poor PO intake. cp 20:35 Eyes: Negative for injury, pain, redness, and discharge. cp 20:35 ENT: Negative for drainage from ear(s), ear pain, sore throat, difficulty swallowing, difficulty handling secretions. 20:35 Cardiovascular: Negative for chest pain, edema, palpitations. 20:35 Respiratory: Negative for cough, shortness of breath, wheezing. 20:35 Abdomen/GI: Negative for vomiting, diarrhea, constipation. 20:35 Back: Positive for flank pain, on the left, Negative for injury or acute deformity, decreased range of motion. 20:35 : Positive for urinary symptoms. 20:35 Neuro: Negative for altered mental status, dizziness, headache, weakness. 20:35 All other systems are negative. Exam: 20:40 Constitutional: The patient appears in no acute distress, alert, awake, non-toxic, well cp developed, well nourished, uncomfortable. 20:40 Head/Face: Normocephalic, atraumatic. cp 20:40 Eyes: Periorbital structures: appear normal, Conjunctiva: normal, no exudate, no injection, Sclera: no appreciated abnormality, Lids and lashes: appear normal, bilaterally. 20:40 ENT: External ear(s): are unremarkable, Nose: is normal, Mouth: Lips: moist, Oral mucosa: moist, Posterior pharynx: is normal, airway is patent, no erythema, no exudate. 20:40 Chest/axilla: Inspection: normal. 20:40 Cardiovascular: Rate: normal, Rhythm: regular, Edema: is not appreciated, JVD: is not appreciated. 20:40 Respiratory: the patient does not display signs of respiratory distress, Respirations: normal, no use of accessory muscles, no retractions, labored breathing, is not present, Breath sounds: are clear throughout, no decreased breath sounds. 20:40 Abdomen/GI: Inspection: abdomen appears normal, Bowel sounds: active, all quadrants, Palpation: soft, in all quadrants. 20:40 Back: pain, that is moderate, of the left mid back, ROM is normal. 20:40 Neuro: Orientation: to person, place \T\ time. Mentation: is normal, Motor: moves all fours, strength is normal, Sensation: is normal, Gait: is steady. Vital Signs: 19:48 BP 173 / 89; Pulse 91; Resp 19; Temp 98.7(O); Pulse Ox 98% on R/A; Weight 81.65 kg; kd3 Height 5 ft. 5 in. (165.10 cm); Pain 10/10; 23:40 BP 153 / 79; Pulse 87; Resp 17; Temp 98.6; Pulse Ox 97% ; Pain 0/10; ke1 19:48 Body Mass Index 29.95 (81.65 kg, 165.10 cm) kd3 MDM: 20:03 Patient medically screened. cp 21:00 Differential diagnosis: Cholelithiasis chronic back pain, Pyelonephritis cp Ureterolithiasis. 22:39 Data reviewed: vital signs, nurses notes, lab test result(s), radiologic studies, CT cp scan. 22:39 Consideration of Admission/Observation Escalation of care including cp admission/observation considered. I considered the following discharge prescriptions or medication management in the emergency department Medications were administered in the Emergency Department. See MAR. Test considered but Not performed: Ultrasound renal/pelvis. Care significantly affected by the following chronic conditions: Diabetes, Hypertension. Counseling: I had a detailed discussion with the patient and/or guardian regarding: the historical points, exam findings, and any diagnostic results supporting the discharge/admit diagnosis, lab results, radiology results, the need for outpatient follow up, a family practitioner, to return to the emergency department if symptoms worsen or persist or if there are any questions or concerns that arise at home. Response to treatment: the patient's symptoms have markedly improved after treatment, and as a result, I will discharge patient. 09/30 20:25 Order name: Urine Dipstick-Ancillary (obtain specimen); Complete Time: 20:25 cp 09/30 20:25 Order name: Urine Test (obtain specimen); Complete Time: 20:25 cp 09/30 20:25 Order name: Urine Microscopic Only 09/30 20:25 Order name: CBC with Diff 09/30 20:25 Order name: CMP cp 09/30 20:25 Order name: Lipase cp 09/30 20:25 Order name: IV Saline Lock; Complete Time: 20:47 cp 09/30 20:25 Order name: Labs collected and sent; Complete Time: 20:47 cp 09/30 20:25 Order name: CT Stone Protocol 09/30 20:31 Order name: Urine Dipstick-Ancillary; Complete Time: 22:07 EDMS 09/30 22:08 Interpretation: Normal except: UBLD 3+; UPROT Trace; UESTR 2+. cp 09/30 20:31 Order name: Urine --Ancillary (enter results) 09/30 21:03 Order name: CBC with Automated Diff; Complete Time: 22:07 EDMS 09/30 22:08 Interpretation: Normal except: WBC 13.40; NEUT A 9.4. cp 09/30 21:14 Order name: Urine Microscopic Only; Complete Time: 22:07 EDMS 09/30 22:09 Interpretation: Normal except: UWBC 20-50; UWBC Clump Occasional. cp 09/30 21:21 Order name: Comprehensive Metabolic Panel; Complete Time: 22:07 EDMS 09/30 22:39 Interpretation: Normal except: GLUC 173; A/G 1.0; GLOB 3.8. cp 09/30 21:21 Order name: Lipase; Complete Time: 22:07 EDMS 09/30 21:36 Order name: CT; Complete Time: 22:07 EDMS 09/30 22:00 Order name: Urine --Ancillary; Complete Time: 22:07 EDMS 09/30 22:38 Order name: PO challenge; Complete Time: 23:11 cp Administered Medications: 23:11 Drug: Rocephin (cefTRIAXone) 2 grams Route: IV; Rate: calculated rate; Site: right ke1 antecubital; 23:11 Drug: fentaNYL (PF) 25 mcg Route: IVP; Site: right antecubital; ke1 23:20 Follow up: Response: Pain is decreased ke1 23:11 Drug: NS 0.9% 500 ml Route: IV; Rate: bolus; Site: right antecubital; ke1 Disposition Summary: 09/30/22 22:39 Discharge Ordered Location: Home cp Problem: new cp Symptoms: have improved cp Condition: Stable cp Diagnosis - Pyelonephritis acute cp Followup: cp - With: Private Physician - When: 48 Hours - Reason: Recheck today's complaints Discharge Instructions: - Discharge Summary Sheet cp - Pyelonephritis, Adult cp Forms: - Medication Reconciliation Form cp - Thank You Letter cp - Antibiotic Education cp - Prescription Opioid Use cp Prescriptions: - Zofran 4 mg Oral Tablet - take 1 tablet by ORAL route every 12 hours As needed; 20 tablet; Refills: 0, cp Product Selection Permitted - Tramadol 50 mg Oral Tablet - take 1 tablet by ORAL route every 8 hours as needed; 12 tablet; Refills: 0, cp Product Selection Permitted - cefpodoxime 200 mg Oral Tablet - take 1 tablet by ORAL route every 12 hours for 10 days with food; 20 tablet; cp Refills: 0, Product Selection Permitted Addendum: 10/02/2022 02:30 Co-signature as Attending Physician, Wilfrid Knott MD I reviewed the patient's care s p4 provided by the Advanced Practice Provider and agree with the diagnosis and treatment plan. Signatures: Dispatcher [employer] [facility] Irvin Reyna PA PA cp Doucette, Kyli RN RN kd3 Que Cooper RN RN ines1 Wilfrid Knott MD MD sp4 Corrections: (The following items were deleted from the chart) 09/30 22:39 22:13 Normal except: GLUC 173. cp cp
[2022-09-30] MEDS ORDERED: FENTANYL CITR 100 MCG/2 ML ONE (23:05)
[2022-09-30] MEDS ORDERED: NA CHLORIDE 0.9% 500 ML ONE (23:05)
[2022-09-30] MEDS ORDERED: CEFTRIAXONE 2000 MG/VIAL ONE (23:05)
[2022-09-30] MEDS ORDERED: NA CHLORIDE 0.9% 100 ML ONE (23:06)
[2022-10-01 00:39] VITALS: BP 153/79; TEMP 98.6
[2022-10-01 00:42] VITALS: O2SAT 99
== END 2022-09-30 23:56 | disposition home or self-care (01) ==
LOC: ER 19:36
DX: N10 Acute pyelonephritis (principal); I10 Essential (primary) hypertension; E11.9 Type 2 diabetes mellitus without complications; Z79.4 Long term (current) use of insulin
CPT/HCPCS: 87088; 85025; 87086; 36415; 81025; 83690; 80053; 76377; 74176; 96375; 96374; 99283; J3010; J7040; J0696; 81003; 81015